=== PATIENT | male | born 1955 | race Hispanic/Latino ===

== ENCOUNTER 2016-06-30 13:24 | Emergency (ER) | payer SELFPAY ==
--- NOTE | 2016-06-30 14:47 | XRay Report ---
PA and lateral chest: Lungs are hyperlucent and hyperinflated. There are no pulmonary nodules nor infiltrates. The heart size may be small. These findings however are unchanged from November 2014. Impression: 1. Chronic lung disease consistent with COPD. 2. Small cardiac contour. Consider adrenal insufficiency.
[2016-06-30 15:11] LABS: Basophils % (Auto) 0.5 % (0.0-1.8); Eosinophils % (Auto) 0.5 % (0.0-4.3); Hematocrit 46.1 % (35.5-45.6); Hemoglobin 15.3 gm/dl (11.8-15.2); Mean Corpuscular HGB Conc 33 % (32-34); Mean Corpuscular Hemoglobin 31 pg (28-32); Mean Corpuscular Volume 92 fl (84-94); Platelet Count 244 K/mm3 (140-440); Red Blood Count 5.03 M/mm3 (3.65-5.03); Red Cell Distribution Width 14.6 % (13.2-15.2); White Blood Count 16.8 K/mm3 (4.5-11.0)
[2016-06-30 15:50] LABS: Anion Gap 21 mmol/L; BUN/Creatinine Ratio 20.83; Blood Urea Nitrogen 25 mg/dL (9-20); Carbon Dioxide 25 mmol/L (22-30); Chloride 98.2 mmol/L (98-107); Glucose 83 mg/dL (75-100); Potassium 4.1 mmol/L (3.6-5.0); Sodium 140 mmol/L (137-145)
[2016-06-30] MEDS ORDERED: TESSALON PERLES PO ONE (23:35)
[2016-06-30] MEDS ORDERED: ZOFRAN IV ONE (23:35)
[2016-06-30] MEDS ORDERED: SUBLIMAZE IV ONE (23:35)
[2016-06-30] MEDS ORDERED: ATROVENT IH ONE (23:35)
[2016-06-30] MEDS ORDERED: PROVENTIL IH ONE (23:35)
--- NOTE | 2016-06-30 23:43 | Emergency Department Report ---
HPI - HPI HPI: Room 5 The patient is a 61-year-old male presenting with a chief complaint of shortness of breath and cough. Patient states he's had a chronic cough years but over the past 2-3 days and has worsened. Patient admits to cough that is occasionally productive of yellow sputum. Patient does admit to a subjective fever and rhinorrhea Location: Lungs Duration: [see above] Quality: Cough, soreness Severity: Moderate Modifying factors: [see above] Context: [see above] Mode of transportation: EMS <NAEL CORONEL - Last Filed: 07/01/16 01:46> <ANTHONY MONTANEZ - Last Filed: 07/04/16 02:14> - General Chief Complaint: Dyspnea/Respdistress Time Seen by Provider: 06/30/16 23:27 ED Past Medical Hx - Past Medical History Hx Psychiatric Treatment: Yes (DEPRESSION) - Surgical History Additional Surgical History: bladder - as a child - Family History Family history: no significant - Social History Smoking Status: Current Every Day Smoker (approximately one pack per day. Patient has smoked for approximately 45 years) <NAEL CORONEL - Last Filed: 07/01/16 01:46> <ANTHONY MONTANEZ - Last Filed: 07/04/16 02:14> - Medications Home Medications: Home Medications Medication Instructions Recorded Confirmed Last Taken Type ALBUTEROL Inhaler [Proair] 2 puff IH QID PRN #1 inhalation 07/01/16 Unknown Rx Azithromycin [Zithromax Z-CARLOS] 0 mg PO DAILY #6 tab 07/01/16 Unknown Rx Benzonatate [Tessalon Perles] 100 mg PO Q8HR #30 capsule 07/01/16 Unknown Rx HYDROcodone/APAP 5-325 [[place] 1 each PO Q6HR PRN #10 tablet 07/01/16 Unknown Rx 5/325] Ibuprofen [Motrin 800 MG tab] 800 mg PO Q8HR PRN #20 tablet 07/01/16 Unknown Rx Prednisone [predniSONE 10 mg 10 mg PO .TAPER #1 tab.ds.pk 07/01/16 Unknown Rx (6-Day Pack, 21 Tabs)] ED Review of Systems ROS: Stated complaint: SOB Other details as noted in HPI Comment: All other systems reviewed and negative Constitutional: fever (subjective) Eyes: denies: eye pain, eye discharge, vision change ENT: denies: ear pain, throat pain Respiratory: cough, shortness of breath Cardiovascular: denies: chest pain, palpitations Endocrine: no symptoms reported Gastrointestinal: denies: abdominal pain, nausea, diarrhea Genitourinary: denies: urgency, dysuria Musculoskeletal: myalgia Skin: denies: rash, lesions Neurological: headache Psychiatric: denies: anxiety, depression Hematological/Lymphatic: denies: easy bleeding, easy bruising <NAEL CORONEL - Last Filed: 07/01/16 01:46> ROS: Stated complaint: SOB Other details as noted in HPI <TARIKANTHONY C - Last Filed: 07/04/16 02:14> Physical Exam - Physical Exam Vital Signs: Vital Signs 06/30/16 14:18 Temperature 98.0 F Pulse Rate 90 Respiratory 28 H Rate Blood Pressure 113/84 O2 Sat by Pulse 97 Oximetry Physical Exam: GENERAL: The patient is well-developed well-nourished male lying on stretcher not appearing to be in acute distress. [] HEENT: Normocephalic. Atraumatic. Extraocular motions are intact. Patient has moist mucous membranes. NECK: Supple. Trachea midline CHEST/LUNGS: Clear to auscultation. There is no respiratory distress noted. Frequent coughing HEART/CARDIOVASCULAR: Regular. There is no tachycardia. There is no gallop rub or murmur. ABDOMEN: Abdomen is soft, nontender. Patient has normal bowel sounds. There is no abdominal distention. SKIN: There is no rash. There is no edema. There is no diaphoresis. NEURO: The patient is awake, alert, and oriented. The patient is cooperative. The patient has normal speech MUSCULOSKELETAL: There is no evidence of acute injury. <NAEL CORONEL K - Last Filed: 07/01/16 01:46> - Physical Exam Vital Signs: Vital Signs 06/30/16 06/30/16 06/30/16 14:18 22:52 23:00 Temperature 98.0 F Pulse Rate 90 Pulse Rate [ Anterior Bilateral Throughout] Respiratory 28 H Rate Respiratory Rate [Anterior Bilateral Throughout] Blood Pressure 113/84 128/102 Blood Pressure [Right] O2 Sat by Pulse 97 97 98 Oximetry 06/30/16 06/30/16 06/30/16 23:16 23:30 23:45 Temperature Pulse Rate Pulse Rate [ 90 Anterior Bilateral Throughout] Respiratory Rate Respiratory 18 Rate [Anterior Bilateral Throughout] Blood Pressure 128/102 130/91 125/87 Blood Pressure [Right] O2 Sat by Pulse 97 96 96 Oximetry 07/01/16 07/01/16 07/01/16 00:00 00:15 00:30 Temperature Pulse Rate Pulse Rate [ 87 Anterior Bilateral Throughout] Respiratory Rate Respiratory 16 Rate [Anterior Bilateral Throughout] Blood Pressure 119/79 125/80 100/66 Blood Pressure [Right] O2 Sat by Pulse 86 91 92 Oximetry 07/01/16 07/01/16 00:45 02:11 Temperature Pulse Rate 91 H Pulse Rate [ Anterior Bilateral Throughout] Respiratory 18 Rate Respiratory Rate [Anterior Bilateral Throughout] Blood Pressure 103/67 Blood Pressure 97/64 [Right] O2 Sat by Pulse 89 96 Oximetry <ANTHONY MONTANEZ C - Last Filed: 07/04/16 02:14> ED Course Vital Signs 06/30/16 14:18 Temperature 98.0 F Pulse Rate 90 Respiratory 28 H Rate Blood Pressure 113/84 O2 Sat by Pulse 97 Oximetry <NAEL CORONEL K - Last Filed: 07/01/16 01:46> Vital Signs 06/30/16 06/30/16 06/30/16 14:18 22:52 23:00 Temperature 98.0 F Pulse Rate 90 Pulse Rate [ Anterior Bilateral Throughout] Respiratory 28 H Rate Respiratory Rate [Anterior Bilateral Throughout] Blood Pressure 113/84 128/102 Blood Pressure [Right] O2 Sat by Pulse 97 97 98 Oximetry 06/30/16 06/30/16 06/30/16 23:16 23:30 23:45 Temperature Pulse Rate Pulse Rate [ 90 Anterior Bilateral Throughout] Respiratory Rate Respiratory 18 Rate [Anterior Bilateral Throughout] Blood Pressure 128/102 130/91 125/87 Blood Pressure [Right] O2 Sat by Pulse 97 96 96 Oximetry 07/01/16 07/01/16 07/01/16 00:00 00:15 00:30 Temperature Pulse Rate Pulse Rate [ 87 Anterior Bilateral Throughout] Respiratory Rate Respiratory 16 Rate [Anterior Bilateral Throughout] Blood Pressure 119/79 125/80 100/66 Blood Pressure [Right] O2 Sat by Pulse 86 91 92 Oximetry 07/01/16 07/01/16 00:45 02:11 Temperature Pulse Rate 91 H Pulse Rate [ Anterior Bilateral Throughout] Respiratory 18 Rate Respiratory Rate [Anterior Bilateral Throughout] Blood Pressure 103/67 Blood Pressure 97/64 [Right] O2 Sat by Pulse 89 96 Oximetry <ANTHONY MONTANEZ - Last Filed: 07/04/16 02:14> ED Medical Decision Making - Lab Data Result diagrams: 06/30/16 14:46 06/30/16 14:46 Laboratory Tests 06/30/16 06/30/16 14:46 14:46 WBC 16.8 H RBC 5.03 Hgb 15.3 H Hct 46.1 H MCV 92 MCH 31 MCHC 33 RDW 14.6 Plt Count 244 Lymph % (Auto) 5.9 L [place] % (Auto) 8.2 H Eos % (Auto) 0.5 Baso % (Auto) 0.5 Lymph # 1.0 L [place] # 1.4 H Eos # 0.1 Baso # 0.1 Seg Neutrophils % 84.9 H Seg Neutrophils # 14.3 H Sodium 140 Potassium 4.1 Chloride 98.2 Carbon Dioxide 25 Anion Gap 21 BUN 25 H Creatinine 1.2 Estimated GFR > 60 BUN/Creatinine Ratio 20.83 Glucose 83 Calcium 9.0 Troponin T < 0.010 - EKG Data -: EKG Interpreted by Me EKG shows normal: sinus rhythm Rate: normal - EKG Data When compared to previous EKG there are: previous EKG unavailable Interpretation: nonspecific ST-T wave margie - Radiology Data Radiology results: image reviewed (chest x-ray) interpreted by me: Chest x-ray-no definite focal infiltrates. Consistent with COPD - Differential Diagnosis COPD, pneumonia, PE <NAEL CORONEL - Last Filed: 07/01/16 01:46> - Lab Data Result diagrams: 06/30/16 14:46 06/30/16 14:46 - Radiology Data Radiology results: report reviewed (Ct angio chest: No PE or dissection. Borderline enlarged mediastinal and hilar lymph nodes. Advanced COPD see report ) <ANTHONY MONTANEZ - Last Filed: 07/04/16 02:14> Critical care attestation.: If time is entered above; I have spent that time in minutes in the direct care of this critically ill patient, excluding procedure time. <NAEL CORONEL - Last Filed: 07/01/16 01:46> Critical care attestation.: If time is entered above; I have spent that time in minutes in the direct care of this critically ill patient, excluding procedure time. <ANTHONY MONTANEZ - Last Filed: 07/04/16 02:14> ED Disposition <BERNANAEL - Last Filed: 07/01/16 01:46> Is pt being admited?: No <ANTHONY MONTANEZ - Last Filed: 07/04/16 02:14> Clinical Impression: Shortness of breath, Cough, COPD (chronic obstructive pulmonary disease) Disposition: DISCHARGED TO HOME OR SELFCARE Condition: Stable Instructions: Chronic Obstructive Pulmonary Disease (ED) Additional Instructions: Return to the emergency department immediately should you develop worsening symptoms, fever, inability to tolerate food or liquid or any other concerns. Prescriptions: ALBUTEROL Inhaler [Proair] 2 puff IH QID PRN #1 inhalation PRN Reason: Shortness Of Breath Azithromycin [Zithromax Z-CARLOS] 0 mg PO DAILY #6 tab Benzonatate [Tessalon Perles] 100 mg PO Q8HR #30 capsule HYDROcodone/APAP 5-325 [[place] 5/325] 1 each PO Q6HR PRN #10 tablet PRN Reason: Pain Ibuprofen [Motrin 800 MG tab] 800 mg PO Q8HR PRN #20 tablet PRN Reason: Pain Prednisone [predniSONE 10 mg (6-Day Pack, 21 Tabs)] 10 mg PO .TAPER #1 tab.ds.pk Referrals: MORALES PIMENTEL MD [Staff Physician] - 3-5 Days (Dr. Pimentel is a health information tech. Please follow up with him for further evaluation) JUAN LANDRY MD [Staff Physician] - 3-5 Days (Dr Landry is a primary physician. Please follow up with him for further evaluation)
[2016-07-01] MEDS ORDERED: NACL ONE (00:26)
--- NOTE | 2016-07-01 02:11 | Cat Scan Report ---
FINAL REPORT PROCEDURE: CT ANGIO CHEST TECHNIQUE: Computerized axial tomographic angiography of the chest and pulmonary arteries was performed after the IV injection of iodinated nonionic contrast. The image data was postprocessed using maximum intensity projection (MIP) and 2-dimensional multiplanar reformatted (MPR) techniques. The examination is specifically tailored to the evaluation of the pulmonary arteries per clinical request. HISTORY: Short of breath 786.09, chest pain 786.50, shortness of breath, cough COMPARISON: No prior studies are available for comparison. FINDINGS: Heart and pericardium: Normal. Thoracic aorta: There is no thoracic aortic aneurysm or dissection.. Pulmonary vasculature: There is no pulmonary embolism.. Lymph nodes: There are borderline enlarged mediastinal and hilar lymph nodes.. Lungs: There is advanced COPD with large cystic changes at the lung apices. There is scattered fibrotic changes at the lung bases. There are no active infiltrates. There is no pulmonary nodule or mass. There are focal areas of bronchiectasis and bronchial wall thickening. The trachea and bronchi are patent.. Pleural space: No effusion, thickening, or pneumothorax. Musculoskeletal structures: No significant abnormality. Upper abdominal structures: No significant abnormality. IMPRESSION: There is no thoracic aortic aneurysm or dissection.. There is no pulmonary embolism.. There are borderline enlarged mediastinal and hilar lymph nodes.. There is advanced COPD with large cystic changes at the lung apices. There is scattered fibrotic changes at the lung bases. There are no active infiltrates. There is no pulmonary nodule or mass. There are focal areas of bronchiectasis and bronchial wall thickening. The trachea and bronchi are patent.. There are no effusions or pneumothoraces. .
[2016-07-01 02:12] VITALS: BP 97/64
== END 2016-07-01 04:00 | disposition home or self-care (01) ==
LOC: ED 13:24
DX: J44.9 Chronic obstructive pulmonary disease, unspecified (principal); F32.9 Major depressive disorder, single episode, unspecified; F17.210 Nicotine dependence, cigarettes, uncomplicated; Z88.0 Allergy status to penicillin
CPT/HCPCS: 36415; 71020; 71275; 80048; 84484; 85025; 87400; 93005; 93010; 94640; 96374; 96375; 99285; J2405; J3010; Q9967

== ENCOUNTER 2017-06-27 12:56 | Emergency (ER) | payer SELFPAY ==
[2017-06-27] MEDS ORDERED: TYLENOL PO ONE (15:46)
--- NOTE | 2017-06-27 16:32 | Emergency Department Report ---
ED Neck Pain/Injury HPI - General Chief Complaint: Extremity Injury, Upper Stated Complaint: NECK PAIN Time Seen by Provider: 06/27/17 15:45 Mode of arrival: Ambulatory Limitations: No Limitations - History of Present Illness Initial Comments: 61-year-old male past medical history crack cocaine use, chronic shoulder pain and chronic neck pain presents with acute on chronic neck pain. 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 Patient states is been going on for years. Denies any fever chills nausea vomiting photophobia. Patient is awake alert and oriented 3 states that pain is currently dull and achy. Pain currently 6 out of 10. Denies any associated chest pain diaphoresis nausea fever or chills or shortness of breath or palpitations. States he has a past history of smoking crack cocaine. MD Complaint: neck pain, neck injury Onset/Timin -: week(s) Radiation: right lateral Severity: moderate Severity scale (0 -10): 5 Quality: dull, aching Consistency: intermittent Improves With: none Worsens With: none Treatments Prior to Arrival: none - Related Data Previous Rx's Medication Instructions Recorded Last Taken Type ALBUTEROL Inhaler [Proair] 2 puff IH QID PRN #1 inhalation 07/01/16 Unknown Rx Azithromycin [Zithromax Z-CARLOS] 0 mg PO DAILY #6 tab 07/01/16 Unknown Rx Benzonatate [Tessalon Perles] 100 mg PO Q8HR #30 capsule 07/01/16 Unknown Rx HYDROcodone/APAP 5-325 [[place] 1 each PO Q6HR PRN #10 tablet 07/01/16 Unknown Rx 5/325] Ibuprofen [Motrin 800 MG tab] 800 mg PO Q8HR PRN #20 tablet 07/01/16 Unknown Rx Prednisone [predniSONE 10 mg 10 mg PO .TAPER #1 tab.ds.pk 07/01/16 Unknown Rx (6-Day Pack, 21 Tabs)] Acetaminophen/Codeine [Tylenol 1 tab PO Q6H PRN #8 tab 06/27/17 Unknown Rx /Codeine # 3 tab] Ibuprofen [Motrin] 400 mg PO Q8H PRN #20 tablet 06/27/17 Unknown Rx Allergies Allergy/AdvReac Type Severity Reaction Status Date / Time penicillin Allergy Unknown Verified 06/30/16 14:31 ED Review of Systems ROS: Stated complaint: NECK PAIN Other details as noted in HPI Constitutional: denies: chills, fever Eyes: denies: eye pain, eye discharge, vision change ENT: denies: ear pain, throat pain Respiratory: denies: cough, shortness of breath, wheezing Cardiovascular: denies: chest pain, palpitations Endocrine: no symptoms reported Gastrointestinal: denies: abdominal pain, nausea, diarrhea Genitourinary: denies: urgency, dysuria Musculoskeletal: as per HPI. denies: back pain, joint swelling, arthralgia Skin: denies: rash, lesions Neurological: denies: headache, weakness, paresthesias Psychiatric: denies: anxiety, depression Hematological/Lymphatic: denies: easy bleeding, easy bruising ED Past Medical Hx - Past Medical History Previous Medical History?: Yes Hx Psychiatric Treatment: Yes (DEPRESSION) Hx COPD: Yes - Surgical History Past Surgical History?: Yes Additional Surgical History: bladder - as a child - Social History Smoking Status: Current Every Day Smoker Substance Use Type: Cocaine - Medications Home Medications: Home Medications Medication Instructions Recorded Confirmed Last Taken Type ALBUTEROL Inhaler [Proair] 2 puff IH QID PRN #1 inhalation 07/01/16 Unknown Rx Azithromycin [Zithromax Z-CARLOS] 0 mg PO DAILY #6 tab 07/01/16 Unknown Rx Benzonatate [Tessalon Perles] 100 mg PO Q8HR #30 capsule 07/01/16 Unknown Rx HYDROcodone/APAP 5-325 [[place] 1 each PO Q6HR PRN #10 tablet 07/01/16 Unknown Rx 5/325] Ibuprofen [Motrin 800 MG tab] 800 mg PO Q8HR PRN #20 tablet 07/01/16 Unknown Rx Prednisone [predniSONE 10 mg 10 mg PO .TAPER #1 tab.ds.pk 07/01/16 Unknown Rx (6-Day Pack, 21 Tabs)] Acetaminophen/Codeine [Tylenol 1 tab PO Q6H PRN #8 tab 06/27/17 Unknown Rx /Codeine # 3 tab] Ibuprofen [Motrin] 400 mg PO Q8H PRN #20 tablet 06/27/17 Unknown Rx ED Physical Exam - General Limitations: No Limitations General appearance: alert, in no apparent distress - Head Head exam: Present: atraumatic, normocephalic - Eye Eye exam: Present: normal appearance, PERRL, EOMI - ENT ENT exam: Present: mucous membranes moist - Neck Neck exam: Present: normal inspection, full ROM (neck flexion and extension intact no midline or posterior cervical spine exam on palpation) - Respiratory Respiratory exam: Present: normal lung sounds bilaterally. Absent: respiratory distress - Cardiovascular Cardiovascular Exam: Present: regular rate, normal rhythm. Absent: systolic murmur, diastolic murmur, rubs, gallop - GI/Abdominal GI/Abdominal exam: Present: soft, normal bowel sounds - Rectal Rectal exam: Present: deferred - Extremities Exam Extremities exam: Present: normal inspection - Expanded Upper Extremity Exam Right Shoulder Exam: Present: normal inspection, full ROM (range of motion right shoulder clinically intact on exam) Upper Arm exam: Present: normal inspection, full ROM - Back Exam Back exam: Present: normal inspection - Neurological Exam Neurological exam: Present: alert, oriented X3 - Psychiatric Psychiatric exam: Present: normal affect, normal mood - Skin Skin exam: Present: warm, dry, intact, normal color. Absent: rash ED Course Vital Signs 06/27/17 06/27/17 13:03 17:02 Temperature 98.1 F Pulse Rate 78 Respiratory 18 16 Rate Blood Pressure 115/78 O2 Sat by Pulse 96 Oximetry ED Medical Decision Making - Medical Decision Making A/P: Cervical radiculopathy 1- range of motion neck and shoulders preserved. X-ray consistent with degenerative disease of the neck C-spine. 2- short course of Motrin when necessary , short course codeine when necessary 3- patient referred to orthopedics and primary care. 4- has no associated diaphoresis chest pain palpitations substernal chest pain nausea or vomiting Critical care attestation.: If time is entered above; I have spent that time in minutes in the direct care of this critically ill patient, excluding procedure time. ED Disposition Clinical Impression: Chronic neck pain Disposition: - TO HOME OR SELFCARE Is pt being admited?: No Does the pt Need Aspirin: No Condition: Stable Instructions: Cervical Radiculopathy (ED) Prescriptions: Acetaminophen/Codeine [Tylenol /Codeine # 3 tab] 1 tab PO Q6H PRN #8 tab PRN Reason: Pain Ibuprofen [Motrin] 400 mg PO Q8H PRN #20 tablet PRN Reason: Pain Referrals: [facility] [Provider Group] - 3-5 Days [facility] [Outside] - 3-5 Days Time of Disposition: 17:30
[2017-06-27 17:47] VITALS: BP 124/74
--- NOTE | 2017-06-27 18:38 | XRay Report ---
FINAL REPORT PROCEDURE: XR SPINE CERVICAL 2-3V TECHNIQUE: Cervical spine, three views HISTORY: acute on chronic neck pain COMPARISON: No prior studies are available for comparison. FINDINGS: Vertebral body heights and alignment are maintained. There are degenerative disc changes of the mid cervical spine, with disc space narrowing and osteophyte formation. Odontoid process is intact. IMPRESSION: Degenerative disc changes. No acute osseous abnormality is identified
== END 2017-06-27 17:48 | disposition home or self-care (01) ==
LOC: ED 12:56
DX: M54.2 Cervicalgia (principal); G89.29 Other chronic pain; F32.9 Major depressive disorder, single episode, unspecified; J44.9 Chronic obstructive pulmonary disease, unspecified; F17.200 Nicotine dependence, unspecified, uncomplicated; F14.10 Cocaine abuse, uncomplicated; Z88.0 Allergy status to penicillin
CPT/HCPCS: 72040; 99283

== ENCOUNTER 2017-07-01 18:12 | Inpatient (IN) | payer SELFPAY ==
[2017-07-01] MEDS ORDERED: DUONEB *Not for PRN Use IH ONE ×3 (18:29→22:38)
[2017-07-01 18:45] LABS: Basophils # (Auto) 0.1 K/mm3 (0.0-0.1); Basophils % (Auto) 0.9 % (0.0-1.8); Eosinophils % (Auto) 0.2 % (0.0-4.3); Hematocrit 48.6 % (35.5-45.6); Hemoglobin 16.3 gm/dl (11.8-15.2); Lymphocytes # (Auto) 1.5 K/mm3 (1.2-5.4); Lymphocytes % (Auto) 14.5 % (13.4-35.0); Mean Corpuscular HGB Conc 34 % (32-34); Mean Corpuscular Hemoglobin 30 pg (28-32); Mean Corpuscular Volume 91 fl (84-94); Monocytes % (Auto) 9.4 % (0.0-7.3); Platelet Count 162 K/mm3 (140-440); Red Blood Count 5.34 M/mm3 (3.65-5.03); Red Cell Distribution Width 15.1 % (13.2-15.2)
[2017-07-01 19:17] LABS: Calcium 8.6 mg/dL (8.4-10.2)
--- NOTE | 2017-07-01 19:45 | XRay Report ---
FINAL REPORT PROCEDURE: XR CHEST 1V AP TECHNIQUE: A portable AP chest radiograph was obtained at 07/01/2017 22:39 (T) . CPT 38549 HISTORY: Shortness of breath. COMPARISON: No prior studies are available for comparison. FINDINGS: Heart: Normal. Mediastinum/Vessels: Aortic tortuosity. Lungs/Pleural space: Moderate hyperinflation. Biapical bullous changes. Subtle peribronchial thickening. Curvilinear line overlies the left upper thorax. Bony thorax: Mild degenerative changes of the spine. Life support devices: None. IMPRESSION: Aortic tortuosity. Moderate hyperinflation and biapical bullous change. Subtle peribronchial thickening, consider bronchitis. Curvilinear line overlies the left upper thorax, likely skin fold as there appear to be lung markings peripheral to this. With emphysema and bullous change, consider PA and lateral chest radiograph even chest CT if there is concern for subtle pneumothorax.
--- NOTE | 2017-07-01 20:28 | Emergency Department Report ---
ED Shortness of Breath HPI - General Chief Complaint: Dyspnea/Respdistress Stated Complaint: SOB Time Seen by Provider: 07/01/17 20:23 Source: patient Mode of arrival: Ambulatory Limitations: No Limitations - History of Present Illness Initial Comments: Patient is a 62-year-old male presents to emergency room with complaints of shortness of breath and cough 4-5 days. Patient states that he has COPD and is having another COPD exacerbation. Patient states his cough is productive with yellow sputum. Patient complains of fever and chills. Patient denies chest pain. Patient states that he is breathing faster than normal and is having difficulties in breathing and feels like he cannot take a deep breath. Patient states he supposed to be taking inhalers but does not have any. Patient also states he doesn't have a clinical technician or primary care. 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 Patient also complains of frequency in urination has been going on for several months. Patient denies dysuria or pain with urination. She denies hematuria or change in color of urine. MD Complaint: shortness of breath -: Gradual Severity: severe Pain Scale: 10 Consistency: constant Improves With: oxygen, rest, bronchodilators, upright position Worsens With: lying flat, exertion, movement, coughing Known History Of: COPD Context: recent URI, medication noncompliance, smoke/fume exposure, recent illness Associated Symptoms: denies other symptoms, fever, cough, sputum production, polyuria Treatments Prior to Arrival: none - Related Data Home Oxygen Therapy: No Previous Rx's Medication Instructions Recorded Last Taken Type ALBUTEROL Inhaler [Proair] 2 puff IH QID PRN #1 inhalation 07/01/16 Unknown Rx Azithromycin [Zithromax Z-CARLOS] 0 mg PO DAILY #6 tab 07/01/16 Unknown Rx Benzonatate [Tessalon Perles] 100 mg PO Q8HR #30 capsule 07/01/16 Unknown Rx HYDROcodone/APAP 5-325 [[place] 1 each PO Q6HR PRN #10 tablet 07/01/16 Unknown Rx 5/325] Ibuprofen [Motrin 800 MG tab] 800 mg PO Q8HR PRN #20 tablet 07/01/16 Unknown Rx Prednisone [predniSONE 10 mg 10 mg PO .TAPER #1 tab.ds.pk 07/01/16 Unknown Rx (6-Day Pack, 21 Tabs)] Acetaminophen/Codeine [Tylenol 1 tab PO Q6H PRN #8 tab 06/27/17 Unknown Rx /Codeine # 3 tab] Albuterol Sulfate [Ventolin Hfa] 1 puff IH Q4H PRN #1 hfa.aer.ad 06/27/17 Unknown Rx Ibuprofen [Motrin] 400 mg PO Q8H PRN #20 tablet 06/27/17 Unknown Rx Allergies Allergy/AdvReac Type Severity Reaction Status Date / Time penicillin Allergy Unknown Verified 06/30/16 14:31 ED Review of Systems ROS: Stated complaint: SOB Other details as noted in HPI Comment: All other systems reviewed and negative Constitutional: chills, fever Eyes: denies: eye pain, eye discharge, vision change ENT: denies: ear pain, throat pain Respiratory: see HPI, cough, shortness of breath, SOB with exertion, SOB at rest , wheezing Cardiovascular: as per HPI. denies: chest pain, palpitations Endocrine: no symptoms reported Gastrointestinal: denies: abdominal pain, nausea, diarrhea Genitourinary: urgency, frequency. denies: dysuria Musculoskeletal: denies: back pain, joint swelling, arthralgia Skin: denies: rash, lesions Neurological: denies: headache, weakness, paresthesias Psychiatric: denies: anxiety, depression Hematological/Lymphatic: denies: easy bleeding, easy bruising ED Past Medical Hx - Past Medical History Previous Medical History?: Yes Hx Psychiatric Treatment: Yes (DEPRESSION) Hx COPD: Yes - Surgical History Past Surgical History?: Yes Additional Surgical History: bladder - as a child - Family History Family history: hypertension - Social History Smoking Status: Current Every Day Smoker Substance Use Type: None - Medications Home Medications: Home Medications Medication Instructions Recorded Confirmed Last Taken Type ALBUTEROL Inhaler [Proair] 2 puff IH QID PRN #1 inhalation 07/01/16 Unknown Rx Azithromycin [Zithromax Z-CARLOS] 0 mg PO DAILY #6 tab 07/01/16 Unknown Rx Benzonatate [Tessalon Perles] 100 mg PO Q8HR #30 capsule 07/01/16 Unknown Rx HYDROcodone/APAP 5-325 [[place] 1 each PO Q6HR PRN #10 tablet 07/01/16 Unknown Rx 5/325] Ibuprofen [Motrin 800 MG tab] 800 mg PO Q8HR PRN #20 tablet 07/01/16 Unknown Rx Prednisone [predniSONE 10 mg 10 mg PO .TAPER #1 tab.ds.pk 07/01/16 Unknown Rx (6-Day Pack, 21 Tabs)] Acetaminophen/Codeine [Tylenol 1 tab PO Q6H PRN #8 tab 06/27/17 Unknown Rx /Codeine # 3 tab] Albuterol Sulfate [Ventolin Hfa] 1 puff IH Q4H PRN #1 hfa.aer.ad 06/27/17 Unknown Rx Ibuprofen [Motrin] 400 mg PO Q8H PRN #20 tablet 06/27/17 Unknown Rx ED Physical Exam - General Limitations: No Limitations General appearance: alert, in no apparent distress - Head Head exam: Present: atraumatic, normocephalic - Eye Eye exam: Present: normal appearance - ENT ENT exam: Present: mucous membranes dry - Neck Neck exam: Present: normal inspection - Respiratory Respiratory exam: Present: normal lung sounds bilaterally, respiratory distress , wheezes, rhonchi, accessory muscle use, prolonged expiratory - Cardiovascular Cardiovascular Exam: Present: regular rate, normal rhythm. Absent: systolic murmur, diastolic murmur, rubs, gallop - GI/Abdominal GI/Abdominal exam: Present: soft, normal bowel sounds - Rectal Rectal exam: Present: deferred - Extremities Exam Extremities exam: Present: normal inspection - Back Exam Back exam: Present: normal inspection - Neurological Exam Neurological exam: Present: alert, oriented X3 - Psychiatric Psychiatric exam: Present: normal affect, normal mood - Skin Skin exam: Present: warm, dry, intact, normal color. Absent: rash ED Course Vital Signs 07/01/17 07/01/17 07/01/17 18:16 18:28 18:30 Temperature 97.9 F Pulse Rate 87 Pulse Rate [ Anterior Bilateral Throughout] Respiratory 24 Rate Respiratory Rate [Anterior Bilateral Throughout] Blood Pressure 129/87 O2 Sat by Pulse 97 98 98 Oximetry 07/01/17 07/01/17 07/01/17 18:35 18:46 19:00 Temperature Pulse Rate 85 86 Pulse Rate [ 85 Anterior Bilateral Throughout] Respiratory 38 H 30 H Rate Respiratory 24 Rate [Anterior Bilateral Throughout] Blood Pressure 130/90 122/82 O2 Sat by Pulse 96 96 Oximetry 07/01/17 07/01/17 07/01/17 19:16 19:25 19:30 Temperature Pulse Rate Pulse Rate [ Anterior Bilateral Throughout] Respiratory 17 20 30 H Rate Respiratory Rate [Anterior Bilateral Throughout] Blood Pressure 122/82 123/64 O2 Sat by Pulse 96 95 94 Oximetry 07/01/17 07/01/17 07/01/17 19:36 19:46 20:00 Temperature Pulse Rate 101 H 92 H Pulse Rate [ 90 Anterior Bilateral Throughout] Respiratory 26 H 29 H Rate Respiratory 24 Rate [Anterior Bilateral Throughout] Blood Pressure 123/64 107/69 O2 Sat by Pulse 92 91 Oximetry 07/01/17 07/01/17 07/01/17 20:16 20:30 20:46 Temperature Pulse Rate 88 94 H Pulse Rate [ Anterior Bilateral Throughout] Respiratory 35 H 31 H 35 H Rate Respiratory Rate [Anterior Bilateral Throughout] Blood Pressure 107/69 103/73 103/73 O2 Sat by Pulse 96 95 96 Oximetry 07/01/17 07/01/17 07/01/17 21:00 21:16 21:30 Temperature Pulse Rate 89 85 85 Pulse Rate [ Anterior Bilateral Throughout] Respiratory 31 H 25 H 21 Rate Respiratory Rate [Anterior Bilateral Throughout] Blood Pressure 109/70 109/70 113/77 O2 Sat by Pulse 95 97 94 Oximetry 07/01/17 07/01/17 07/01/17 21:46 22:00 22:16 Temperature Pulse Rate 84 84 84 Pulse Rate [ Anterior Bilateral Throughout] Respiratory 20 32 H 26 H Rate Respiratory Rate [Anterior Bilateral Throughout] Blood Pressure 113/77 105/73 113/77 O2 Sat by Pulse 97 96 93 Oximetry 07/01/17 07/01/17 07/01/17 22:30 22:46 22:57 Temperature Pulse Rate 86 85 Pulse Rate [ 88 Anterior Bilateral Throughout] Respiratory 29 H 24 Rate Respiratory 18 Rate [Anterior Bilateral Throughout] Blood Pressure 113/83 113/83 O2 Sat by Pulse 96 96 Oximetry 07/01/17 07/01/17 07/01/17 23:00 23:07 23:16 Temperature Pulse Rate 82 88 Pulse Rate [ 89 Anterior Bilateral Throughout] Respiratory 17 25 H Rate Respiratory 18 Rate [Anterior Bilateral Throughout] Blood Pressure 106/74 106/74 O2 Sat by Pulse 94 96 Oximetry 07/01/17 07/01/17 07/01/17 23:19 23:24 23:30 Temperature 98.2 F Pulse Rate 95 H 92 H Pulse Rate [ Anterior Bilateral Throughout] Respiratory 33 H 29 H Rate Respiratory Rate [Anterior Bilateral Throughout] Blood Pressure 113/77 108/69 O2 Sat by Pulse 97 Oximetry 07/01/17 07/01/17 07/01/17 23:37 23:46 23:55 Temperature Pulse Rate 98 H 109 H Pulse Rate [ Anterior Bilateral Throughout] Respiratory 27 H 43 H 20 Rate Respiratory Rate [Anterior Bilateral Throughout] Blood Pressure 108/69 108/69 O2 Sat by Pulse 90 95 Oximetry 07/02/17 07/02/17 07/02/17 00:00 00:30 01:36 Temperature Pulse Rate 91 H 91 H Pulse Rate [ Anterior Bilateral Throughout] Respiratory 24 21 Rate Respiratory Rate [Anterior Bilateral Throughout] Blood Pressure 103/72 101/67 O2 Sat by Pulse 93 93 95 Oximetry 07/02/17 07/02/17 07/02/17 02:00 02:30 03:00 Temperature Pulse Rate 84 71 81 Pulse Rate [ Anterior Bilateral Throughout] Respiratory 21 21 13 Rate Respiratory Rate [Anterior Bilateral Throughout] Blood Pressure 94/59 96/66 90/66 O2 Sat by Pulse 93 95 96 Oximetry 07/02/17 07/02/17 03:30 04:00 Temperature Pulse Rate 102 H 68 Pulse Rate [ Anterior Bilateral Throughout] Respiratory 18 19 Rate Respiratory Rate [Anterior Bilateral Throughout] Blood Pressure 90/66 97/64 O2 Sat by Pulse 94 98 Oximetry - Reevaluation(s) Reevaluation #1: Patient stated he is feeling better. All results discussed with patient. 07/01/17 23:44 ED Medical Decision Making - Lab Data Result diagrams: 07/01/17 18:29 07/01/17 18:29 - EKG Data -: EKG Interpreted by Me EKG shows normal: sinus rhythm, axis, intervals, QRS complexes, ST-T waves Rate: normal - EKG Data Interpretation: normal EKG - Radiology Data Radiology results: report reviewed, image reviewed interpreted by me: peribronchial cuffing noted. Radiology report reviewed. - Medical Decision Making Patient is a [id number] male presents with shortness of breath and cough. Patient appears to be an acute exacerbation of COPD. Will admit patient for further treatment and evaluation. - Differential Diagnosis COPD exacerbation. Pneumonia. Bronchitis. URI. UTI. Critical care attestation.: If time is entered above; I have spent that time in minutes in the direct care of this critically ill patient, excluding procedure time. ED Disposition Clinical Impression: SOB (shortness of breath), Bronchitis, COPD exacerbation, Urinary frequency Disposition: DC-[id number] OP ADMIT IP TO THIS HOSP Is pt being admited?: Yes Does the pt Need Aspirin: No Condition: Serious Time of Disposition: 02:04
[2017-07-01 21:39] LABS: Creatine Kinase MB 1.9 ng/mL (0.0-4.0)
[2017-07-01] MEDS ORDERED: LEVAQUIN 750MG/150ML 750 MG/150 ML BAG IV ONE (22:03)
[2017-07-01] MEDS ORDERED: NACL 0.9% 1000 ML 1,000 ML IV ONE (23:44)
[2017-07-01] MEDS ORDERED: DILAUDID IV ONE (23:50)
[2017-07-01] MEDS ORDERED: DILAUDID ONE (23:52)
[2017-07-02 00:44] LABS: Bilirubin,Urine NEG (Negative); Blood,Urine NEG (Negative); Color,Urine Yellow (Yellow); Hyaline Casts,Urine 76 /LPF; Mucus,Urine FEW /HPF; Urobilinogen,Urine < 2.0 mg/dL (<2.0)
--- NOTE | 2017-07-02 01:52 | Nuclear Medicine Report ---
FINAL REPORT PROCEDURE: NM LUNG SCAN PERF/VENT TECHNIQUE: 5.0 mCi Tc-99m MAA was injected IV for pulmonary perfusion imaging in multiple projections. 15.00 mCi Tc-99m DTPA aerosol was inhaled for pulmonary ventilation imaging in multiple projections. Injection site: RIGHT antecubital fossa. CPT 99571 REGULATORY GUIDELINES: The patient was released based upon guidelines established in [place] State Regulations for Protection Against Radiation, Chapter 1199-05-11-35, Release of Individuals Containing Radioactive Drugs or Implants. HISTORY: SOB COMPARISON: Chest x-ray dated 07/01/2017. CT angiogram dated 07/01/2016. FINDINGS: Perfusion: There is a subsegmental perfusion defect at the right lung apex which could correspond to emphysematous bleb.. Ventilation: No defects . IMPRESSION: Low probability of pulmonary embolism.
[2017-07-02] MEDS ORDERED: PULMICORT IH ONE (03:15)
--- NOTE | 2017-07-02 03:21 | History and Physical Report ---
History of Present Illness Date of examination: 07/02/17 Date of admission: 07/02/2017 Chief complaint: SHORTNESS OF BREATH History of present illness: Mr Teran is a 62 y/o male with h/o COPD who continues to smoke presented with c/o worsening SOB, associated with cough, ongoing for more than a few days. Pt claims that he is trying to quit tobacco abuse and that he is homeless and lives where he works. He was on RA during the encounter and BP was 96/66. Pt denied CP/N/V. Reports weight loss due to sometimes lack of food. ER Course Upon presentation to the ED, He was given Solumedrol, Duonebs, IVF bolus, was stabilized enough and referred for admission to the hospital medicine service. Past History Past Medical History: COPD, other (chronic hypotension) Past Surgical History: No surgical history Social history: single, Lives alone, smoking, other (homeless ) Family history: hypertension Medications and Allergies Allergies Allergy/AdvReac Type Severity Reaction Status Date / Time penicillin Allergy Unknown Verified 06/30/16 14:31 Home Medications Medication Instructions Recorded Confirmed Last Taken Type ALBUTEROL Inhaler [Proair] 2 puff IH QID PRN #1 inhalation 07/01/16 Unknown Rx Azithromycin [Zithromax Z-CARLOS] 0 mg PO DAILY #6 tab 07/01/16 Unknown Rx Benzonatate [Tessalon Perles] 100 mg PO Q8HR #30 capsule 07/01/16 Unknown Rx HYDROcodone/APAP 5-325 [[place] 1 each PO Q6HR PRN #10 tablet 07/01/16 Unknown Rx 5/325] Ibuprofen [Motrin 800 MG tab] 800 mg PO Q8HR PRN #20 tablet 07/01/16 Unknown Rx Prednisone [predniSONE 10 mg 10 mg PO .TAPER #1 tab.ds.pk 07/01/16 Unknown Rx (6-Day Pack, 21 Tabs)] Acetaminophen/Codeine [Tylenol 1 tab PO Q6H PRN #8 tab 06/27/17 Unknown Rx /Codeine # 3 tab] Albuterol Sulfate [Ventolin Hfa] 1 puff IH Q4H PRN #1 hfa.aer.ad 06/27/17 Unknown Rx Ibuprofen [Motrin] 400 mg PO Q8H PRN #20 tablet 06/27/17 Unknown Rx Active Meds: Active Medications Albuterol/Ipratropium (Duoneb *Not For Prn Use*) 1 ampul IH QIDRT [facility] Benzonatate (Tessalon Perles) 100 mg PO Q8HR [facility] Budesonide (Pulmicort) 0.5 mg IH ONCE ONE Stop: 07/02/17 03:16 Sodium Chloride (Nacl 0.9% 1000 Ml) 1,000 mls @ 250 mls/hr IV ONCE ONE Stop: 07/02/17 03:43 Last Admin: 07/02/17 00:30 Dose: 250 mls/hr Sodium Chloride (Nacl 0.9% 1000 Ml) 1,000 mls @ 125 mls/hr IV DIRECT SAL Levofloxacin (Levaquin) 500 mg PO ONCE ONE Stop: 07/03/17 09:17 Methylprednisolone Sodium Succinate (Solu-Medrol) 40 mg IV Q8H [facility] Review of Systems Constitutional: weight loss, fatigue, weakness, chronic pain, no sweats, no night sweats Eyes: bilateral: other (no visual loss or impairment) Ears, nose, mouth and throat: ear discharge, nasal congestion, nasal discharge, no ear pain, no decreased hearing, no nose pain, no mouth pain, no dysphagia, no hoarseness Cardiovascular: shortness of breath, no orthopnea, no palpitations, no dyspnea on exertion, no paroxysmal nocturnal dyspnea Respiratory: cough with sputum, dyspnea on exertion, wheezing, no pleurisy, no pain on inspiration Gastrointestinal: loss of appetite, no abdominal pain, no vomiting, no diarrhea , no early satiety, no dyspepsia/bloating, no early satiety Genitourinary Male: no discharge, no urinary frequency, no genital pain, no genital sores Rectal: no incontinence, no hemorrhoids, no discharge Musculoskeletal: no neck stiffness, no neck pain, no arm numbness/tingling, no morning stiffness, no muscle weakness Integumentary: no pruritis, no redness, no lesions, no darkening of skin, no depigmentation Neurological: no transient paralysis, no weakness, no parathesias, no numbness, no convulsions, no aphasia Psychiatric: no insomnia, no hypersomnia, no paranoia, no depression Endocrine: weight change, no heat intolerance, no flushing, no increase in ring/ shoe/hat size, no proptosis Hematologic/Lymphatic: no easy bruising, no lymphadenopathy, no lymphedema Allergic/Immunologic: seasonal allergies, no urticaria, no allergic rhinitis, no persistent infections, no anaphylaxis Exam - Constitutional Vitals: Temp Pulse Resp BP Pulse Ox 98.2 F 84 21 94/59 93 07/01/17 23:19 07/02/17 02:00 07/02/17 02:00 07/02/17 02:00 07/02/17 02:00 General appearance: Present: no acute distress, disheveled, other (severe malnutrition) - EENT Eyes: Present: PERRL, EOM intact ENT: hearing intact, clear oral mucosa, edentulous, other (dry MM) - Neck Neck: Present: supple, normal ROM - Respiratory Respiratory: bilateral: diminished, rhonchi, wheezing - Cardiovascular Rhythm: regular Heart Sounds: Present: S1 & S2 - Extremities Extremities: no ischemia, pulses intact, pulses symmetrical Peripheral Pulses: within normal limits - Abdominal General gastrointestinal: Present: soft, non-tender, non-distended, normal bowel sounds Male genitourinary: Present: deferred - Rectal Rectal Exam: deferred - Integumentary Integumentary: Present: clear, warm, decreased turgor - Musculoskeletal Musculoskeletal: strength equal bilaterally - Psychiatric Psychiatric: appropriate mood/affect, intact judgment & insight, memory intact - Neurologic Neurologic: CNII-XII intact, moves all extremities - Allied Health Allied health notes reviewed: nursing Results - Labs CBC & Chem 7: 07/01/17 18:29 07/01/17 18:29 Labs: Laboratory Last Values WBC 10.5 K/mm3 (4.5-11.0) 07/01/17 18:29 RBC 5.34 M/mm3 (3.65-5.03) H 07/01/17 18:29 Hgb 16.3 gm/dl (11.8-15.2) H 07/01/17 18:29 Hct 48.6 % (35.5-45.6) H 07/01/17 18:29 MCV 91 fl (84-94) 07/01/17 18:29 MCH 30 pg (28-32) 07/01/17 18:29 MCHC 34 % (32-34) 07/01/17 18:29 RDW 15.1 % (13.2-15.2) 07/01/17 18:29 Plt Count 162 K/mm3 (140-440) 07/01/17 18:29 Lymph % (Auto) 14.5 % (13.4-35.0) 07/01/17 18:29 [place] % (Auto) 9.4 % (0.0-7.3) H 07/01/17 18: Eos % (Auto) 0.2 % (0.0-4.3) 07/01/17 18: Baso % (Auto) 0.9 % (0.0-1.8) 07/01/17 18: Lymph # 1.5 K/mm3 (1.2-5.4) 07/01/17 18: [place] # 1.0 K/mm3 (0.0-0.8) H 07/01/17 18: Eos # 0.0 K/mm3 (0.0-0.4) 07/01/17 18: Baso # 0.1 K/mm3 (0.0-0.1) 07/01/17 18: Seg Neutrophils % 75.0 % (40.0-70.0) H 07/01/17 18: Seg Neutrophils # 7.9 K/mm3 (1.8-7.7) H 07/01/17 18: D-Dimer 331.47 ng/mlDDU (0-234) H 07/01/17 20:28 Sodium 140 mmol/L (137-145) 07/01/17 18: Potassium 3.6 mmol/L (3.6-5.0) 07/01/17 18: Chloride 96.9 mmol/L (98-107) L 07/01/17 18: Carbon Dioxide 28 mmol/L (22-30) 07/01/17 18:29 Anion Gap 19 mmol/L 07/01/17 18:29 BUN 32 mg/dL (9-20) H 07/01/17 18: Creatinine 1.5 mg/dL (0.8-1.5) 07/01/17 18:29 Estimated GFR 47 ml/min 07/01/17 18: BUN/Creatinine Ratio 21 % 07/01/17 18:29 Glucose 101 mg/dL (75-100) H 07/01/17 18:29 Calcium 8.6 mg/dL (8.4-10.2) 07/01/17 18:29 Total Creatine Kinase 95 units/L (55-170) 07/01/17 20:28 CK-MB (CK-2) 1.9 ng/mL (0.0-4.0) 07/01/17 20:28 CK-MB (CK-2) Rel Index 2.0 (0-4) 07/01/17 20:28 Troponin T < 0.010 ng/mL (0.00-0.029) 07/01/17 20:28 NT-Pro-B Natriuret Pep 553.3 pg/mL (0-900) 07/01/17 20:28 Urine Color Yellow (Yellow) 07/01/17 00:20 Urine Turbidity Clear (Clear) 07/01/17 00:20 Urine pH 5.0 (5.0-7.0) 07/01/17 00:20 Ur Specific [place] 1.019 (1.003-1.030) 07/01/17 00:20 Urine Protein 30 mg/dl mg/dL (Negative) 07/01/17 00:20 Urine Glucose (UA) Neg mg/dL (Negative) 07/01/17 00:20 Urine Ketones Neg mg/dL (Negative) 07/01/17 00:20 Urine Blood Neg (Negative) 07/01/17 00:20 Urine Nitrite Neg (Negative) 07/01/17 00:20 Urine Bilirubin Neg (Negative) 07/01/17 00:20 Urine Urobilinogen < 2.0 mg/dL (<2.0) 07/01/17 00:20 Ur Leukocyte Esterase Neg (Negative) 07/01/17 00:20 Urine WBC (Auto) 6.0 /HPF (0.0-6.0) 07/01/17 00:20 Urine RBC (Auto) 3.0 /HPF (0.0-6.0) 07/01/17 00:20 U Epithel Cells (Auto) 1.0 /HPF (0-13.0) 07/01/17 00:20 Hyaline Casts 76 /LPF 07/01/17 00:20 Urine Mucus Few /HPF 07/01/17 00:20 - Imaging and Cardiology Chest x-ray: report reviewed Assessment and Plan Assessment and plan: Assessment' AE of COPD Chronic Hypotention Severe Protein calorie Malnutrition Chronic tobacco abuse Homelessness Abnormal weight loss Adult FTT Full code status Chronic pain syndrome Plan admit to med surg IV Solumedrol IVF hydration Counseled tobacco cessation am labs consider pulm consult if need be SW for d/c planning close monitoring nutrition consult Duonebs Inhaled steroids dvt and GI ulcer prophylaxis Further pt mgt per hospital course d/w pt and the ED physician reviewed the ED records Multiple questions were answered to the best of my ability More than 35 mins spent, of which more than 50% of the time was spent in pt counseling and coordination of care Advance Directives: No VTE prophylaxis?: Chemical Reason for no VTE Prophylaxis: Pt non compliant/refused
[2017-07-02] MEDS: NACL 0.9% 1000 ML 1,000 ML IV SCH ×3 (07:32→23:48)
[2017-07-02] MEDS: TESSALON PERLES PO SCH ×3 (07:33→21:14)
[2017-07-02] MEDS: DUONEB *Not for PRN Use IH SCH ×4 (08:00→20:48)
--- NOTE | 2017-07-02 09:51 | Cat Scan Report ---
CT CHEST WITHOUT CONTRAST: HISTORY: Shortness of breath, evaluate for pneumothorax. COMPARISON: none. TECHNIQUE: Helical CT in 1.25mm intervals without IV contrast. Sagittal and coronal reformatted images. FINDINGS: Thyroid gland: Normal. Tracheobronchial tree: Normal. Esophagus: Normal. Heart: Normal. Pericardium: Normal. Mediastinum: Normal. Lung [place]: Severe centrilobular emphysematous changes are identified in both upper lung zones. Bullous changes are noted at the lung apices. No evidence for pneumonia, pleural effusion or pneumothorax. 5 mm pleural-based nodule in the anterior right lower lobe and 3 mm subpleural nodule in the posterior right lower lobe are noted. No spiculated lung mass concerning for neoplasm. Pleural Spaces: Normal. Musculoskeletal: Mild thoracic spondylosis. IMPRESSION: Severe emphysematous changes. No evidence for pneumothorax.
[2017-07-02] MEDS ORDERED: Fluarix Quad 2017-2018(36 MOS+ IM ONE (12:00)
--- NOTE | 2017-07-02 13:34 | Progress Note ---
Assessment and Plan Assessment and plan: Patient is 62-year-old man with a history of COPD, homelessness, tobacco dependency and depression who presents with shortness of breath. Patient had abnormal chest x-rays so CT of chest without contrast because creatinine 1.5 shows severe emphysematous changes, no pneumothorax. Elevated d-dimer and underwent a V/Q scan which showed low probability of PE. Patient is admitted for COPD exacerbation -Acute copd exaceration: treat with iv steroids, abx, nebs -Tobacco dependancy: advised to stop -Severe malnutrition, bmi 15.7: consulted Sr. Manager -ARF/CKD 3 most likely, vasomotor nephropathy,poa: ivf, repeat in am -GI/DVT prophylaxis reviewed. full code Disposition: anticipate d/c in 2-3 days depending on clinical improvement of copd History Interval history: Patient was seen and examined. Follow-up on current diagnosis of shortness of breath which is still present but improved. Overnight uneventful. Patient denies any chest pain, nausea/vomiting or severe headaches. Imaging, nursing note, chart, labs and old chart reviewed. Discussed with patient. Hospitalist Physical - Physical exam Narrative exam: GEN: cachethic, unkempt NAD, AWAKE, ALERT, ORIENTATED x 3, bmi 15.7 HEENT: NCAT, EOMI, PERRL, OP Clear NECK: supple, no adenopathy, no thyromegaly, no JVD CVS/HEART: RRR, NORMAL S1S2, pulses present bilaterally CHEST/LUNGS: bilateral rhonchi, Symmetrical chest expansion, diminished air entry bilaterally GI/Abdomen: soft, NTND, good bowel sounds, no guarding or rebound /Bladder: no suprapubic tenderness, no CVA or paraspinal tenderness EXT/Skin: no c/c/e, no obvious rash MSK: FROM x 4 Neuro: CN 2-12 grossly intact, no new focal deficits Psych: calm - Constitutional Vitals: Temp Pulse Resp BP Pulse Ox 97.8 F 69 18 102/69 96 07/02/17 08:20 07/02/17 04:10 07/02/17 08:20 07/02/17 08:20 07/02/17 06:40 General appearance: Present: no acute distress, disheveled, other (severe malnutrition) Results - Labs CBC & Chem 7: 07/01/17 18:29 07/01/17 18:29 Labs: Laboratory Last Values WBC 10.5 K/mm3 (4.5-11.0) 07/01/17 18: RBC 5.34 M/mm3 (3.65-5.03) H 07/01/17 18: Hgb 16.3 gm/dl (11.8-15.2) H 07/01/17 18: Hct 48.6 % (35.5-45.6) H 07/01/17 18: MCV 91 fl (84-94) 07/01/17 18: MCH 30 pg (28-32) 07/01/17 18: MCHC 34 % (32-34) 07/01/17 18: RDW 15.1 % (13.2-15.2) 07/01/17 18: Plt Count 162 K/mm3 (140-440) 07/01/17 18: Lymph % (Auto) 14.5 % (13.4-35.0) 07/01/17 18: [place] % (Auto) 9.4 % (0.0-7.3) H 07/01/17 18: Eos % (Auto) 0.2 % (0.0-4.3) 07/01/17 18: Baso % (Auto) 0.9 % (0.0-1.8) 07/01/17 18: Lymph # 1.5 K/mm3 (1.2-5.4) 07/01/17 18: [place] # 1.0 K/mm3 (0.0-0.8) H 07/01/17 18: Eos # 0.0 K/mm3 (0.0-0.4) 07/01/17 18: Baso # 0.1 K/mm3 (0.0-0.1) 07/01/17 18: Seg Neutrophils % 75.0 % (40.0-70.0) H 07/01/17 18: Seg Neutrophils # 7.9 K/mm3 (1.8-7.7) H 07/01/17 18: D-Dimer 331.47 ng/mlDDU (0-234) H 07/01/17 20: Sodium 140 mmol/L (137-145) 07/01/17 18:29 Potassium 3.6 mmol/L (3.6-5.0) 07/01/17 18:29 Chloride 96.9 mmol/L (98-107) L 07/01/17 18: Carbon Dioxide 28 mmol/L (22-30) 07/01/17 18:29 Anion Gap 19 mmol/L 07/01/17 18:29 BUN 32 mg/dL (9-20) H 07/01/17 18:29 Creatinine 1.5 mg/dL (0.8-1.5) 07/01/17 18:29 Estimated GFR 47 ml/min 07/01/17 18:29 BUN/Creatinine Ratio 21 % 07/01/17 18: Glucose 101 mg/dL (75-100) H 07/01/17 18: Calcium 8.6 mg/dL (8.4-10.2) 07/01/17 18:29 Total Creatine Kinase 95 units/L (55-170) 07/01/17 20:28 CK-MB (CK-2) 1.9 ng/mL (0.0-4.0) 07/01/17 20:28 CK-MB (CK-2) Rel Index 2.0 (0-4) 07/01/17 20:28 Troponin T < 0.010 ng/mL (0.00-0.029) 07/01/17 20:28 NT-Pro-B Natriuret Pep 553.3 pg/mL (0-900) 07/01/17 20:28 Urine Color Yellow (Yellow) 07/01/17 00:20 Urine Turbidity Clear (Clear) 07/01/17 00:20 Urine pH 5.0 (5.0-7.0) 07/01/17 00:20 Ur Specific [place] 1.019 (1.003-1.030) 07/01/17 00:20 Urine Protein 30 mg/dl mg/dL (Negative) 07/01/17 00:20 Urine Glucose (UA) Neg mg/dL (Negative) 07/01/17 00:20 Urine Ketones Neg mg/dL (Negative) 07/01/17 00:20 Urine Blood Neg (Negative) 07/01/17 00:20 Urine Nitrite Neg (Negative) 07/01/17 00:20 Urine Bilirubin Neg (Negative) 03/30/18 00:20 Urine Urobilinogen < 2.0 mg/dL (<2.0) 07/01/17 00:20 Ur Leukocyte Esterase Neg (Negative) 07/01/17 00:20 Urine WBC (Auto) 6.0 /HPF (0.0-6.0) 07/01/17 00:20 Urine RBC (Auto) 3.0 /HPF (0.0-6.0) 07/01/17 00:20 U Epithel Cells (Auto) 1.0 /HPF (0-13.0) 07/01/17 00:20 Hyaline Casts 76 /LPF 07/01/17 00:20 Urine Mucus Few /HPF 07/01/17 00:20
[2017-07-02] MEDS: PULMICORT IH SCH ×2 (13:42→20:48)
[2017-07-02] MEDS: BROVANA NEBU IH SCH ×2 (13:43→20:49)
[2017-07-03] MEDS ORDERED: AMBIEN PO ONE (00:15)
[2017-07-03] MEDS ORDERED: ISOPTO TEARS 0.5% OU PRN (00:20)
[2017-07-03] MEDS: TESSALON PERLES PO SCH ×3 (06:41→22:46)
[2017-07-03 06:42] LABS: Hematocrit 40.3 % (35.5-45.6); Hemoglobin 13.7 gm/dl (11.8-15.2); Mean Corpuscular HGB Conc 34 % (32-34); Mean Corpuscular Hemoglobin 31 pg (28-32); Mean Corpuscular Volume 90 fl (84-94); Platelet Count 146 K/mm3 (140-440); Red Blood Count 4.48 M/mm3 (3.65-5.03); Red Cell Distribution Width 15.2 % (13.2-15.2)
[2017-07-03 07:03] LABS: Monocytes # (Auto) 0.6 K/mm3 (0.0-0.8); Monocytes % (Auto) 5.1 % (0.0-7.3)
[2017-07-03 07:20] LABS: BUN/Creatinine Ratio 33; Blood Urea Nitrogen 20 mg/dL (9-20); Calcium 8.3 mg/dL (8.4-10.2); Hemolysis Index 7
[2017-07-03] MEDS: NACL 0.9% 1000 ML 1,000 ML IV SCH ×2 (07:38→15:26)
[2017-07-03] MEDS: PULMICORT IH SCH ×3 (07:39→19:08)
[2017-07-03] MEDS: DUONEB *Not for PRN Use IH SCH ×3 (07:39→19:12)
[2017-07-03] MEDS: BROVANA NEBU IH SCH ×3 (07:39→19:08)
[2017-07-03] MEDS ORDERED: LEVAQUIN PO ONE (09:16)
[2017-07-03] MEDS: PROTONIX PO SCH (10:34)
[2017-07-03] MEDS ORDERED: PROVENTIL IH PRN (11:14)
[2017-07-03 11:32] LABS: Anisocytosis 1+; Basophils % (Manual) 0 % (0.0-1.8); Eosinophils % (Manual) 0 % (0.0-4.3); Total Cells Counted 100
[2017-07-03 11:33] LABS: Platelet Estimate Consistent w Auto
[2017-07-03] MEDS: HEPARIN SUB-Q SCH ×2 (13:25→22:44)
[2017-07-03] MEDS ORDERED: DUONEB *Not for PRN Use IH SCH (14:00)
--- NOTE | 2017-07-03 14:27 | Progress Note ---
Assessment and Plan Assessment and plan: Patient is 62-year-old man with a history of COPD, homelessness, tobacco dependency and depression who presents with shortness of breath. Patient had abnormal chest x-rays so CT of chest without contrast because creatinine 1.5 shows severe emphysematous changes, no pneumothorax. Elevated d-dimer and underwent a V/Q scan which showed low probability of PE. Patient is admitted for COPD exacerbation -Acute copd exaceration: treat with iv steroids, abx, nebs -Tobacco dependancy: advised to stop -Severe malnutrition, bmi 15.7: consulted Physiological Chemist -ARF/CKD 3 most likely, vasomotor nephropathy,poa: ivf, repeat in am -GI/DVT prophylaxis reviewed. full code Disposition: anticipate d/c in 1-2 days depending on clinical improvement of copd wean steroids not on o2 Anticipate discharge tomorrow. History Interval history: Patient was seen and examined. Follow-up on current diagnosis of shortness of breath which is still present but improved. Overnight uneventful. Patient denies any chest pain, nausea/vomiting or severe headaches. Imaging, nursing note, chart, labs and old chart reviewed. Discussed with patient. Hospitalist Physical - Physical exam Narrative exam: GEN: cachethic, unkempt NAD, AWAKE, ALERT, ORIENTATED x 3, bmi 15.7 HEENT: NCAT, EOMI, PERRL, OP Clear NECK: supple, no adenopathy, no thyromegaly, no JVD CVS/HEART: RRR, NORMAL S1S2, pulses present bilaterally CHEST/LUNGS: bilateral rhonchi, Symmetrical chest expansion, diminished air entry bilaterally GI/Abdomen: soft, NTND, good bowel sounds, no guarding or rebound /Bladder: no suprapubic tenderness, no CVA or paraspinal tenderness EXT/Skin: no c/c/e, no obvious rash MSK: FROM x 4 Neuro: CN 2-12 grossly intact, no new focal deficits Psych: calm - Constitutional Vitals: Temp Pulse Resp BP Pulse Ox 99 F 77 18 138/83 93 07/03/17 08:00 07/03/17 08:00 07/03/17 08:00 07/03/17 08:00 07/03/17 11:13 General appearance: Present: no acute distress, disheveled, other (severe malnutrition) Results - Labs CBC & Chem 7: 07/03/17 05:01 07/03/17 05:01 Labs: Laboratory Last Values WBC 11.1 K/mm3 (4.5-11.0) H 07/03/17 05:01 RBC 4.48 M/mm3 (3.65-5.03) 07/03/17 05:01 Hgb 13.7 gm/dl (11.8-15.2) 07/03/17 05:01 Hct 40.3 % (35.5-45.6) D 07/03/17 05:01 MCV 90 fl (84-94) 07/03/17 05:01 MCH 31 pg (28-32) 07/03/17 05:01 MCHC 34 % (32-34) 07/03/17 05:01 RDW 15.2 % (13.2-15.2) 07/03/17 05:01 Plt Count 146 K/mm3 (140-440) 07/03/17 05:01 Lymph % (Auto) 14.5 % (13.4-35.0) 07/01/17 18:29 [place] % (Auto) 5.1 % (0.0-7.3) 07/03/17 05:01 Eos % (Auto) 0.0 % (0.0-4.3) 07/03/17 05:01 Baso % (Auto) 0.9 % (0.0-1.8) 07/01/17 18:29 Lymph # 1.5 K/mm3 (1.2-5.4) 07/01/17 18:29 [place] # 0.6 K/mm3 (0.0-0.8) 07/03/17 05:01 Eos # 0.0 K/mm3 (0.0-0.4) 07/03/17 05:01 Baso # 0.0 K/mm3 (0.0-0.1) 07/03/17 05:01 Add Manual Diff Complete 07/03/17 05:01 Total Counted 100 07/03/17 05:01 Seg Neutrophils % Supervisor Varnish 07/03/17 05:01 Seg Neuts % (Manual) 92.0 % (40.0-70.0) H 07/03/17 05:01 Band Neutrophils % 0 % 07/03/17 05:01 Lymphocytes % (Manual) 4.0 % (13.4-35.0) L 07/03/17 05:01 Reactive Lymphs % (Man) 0 % 07/03/17 05:01 Monocytes % (Manual) 4.0 % (0.0-7.3) 07/03/17 05:01 Eosinophils % (Manual) 0 % (0.0-4.3) 07/03/17 05:01 Basophils % (Manual) 0 % (0.0-1.8) 07/03/17 05:01 Metamyelocytes % 0 % 07/03/17 05:01 Myelocytes % 0 % 07/03/17 05:01 Promyelocytes % 0 % 07/03/17 05:01 Blast Cells % 0 % 07/03/17 05:01 Nucleated RBC % Not Reportable 07/03/17 05:01 Seg Neutrophils # 10.2 K/mm3 (1.8-7.7) H 07/03/17 05:01 Seg Neutrophils # Man 10.2 K/mm3 (1.8-7.7) H 07/03/17 05:01 Band Neutrophils # 0.0 K/mm3 07/03/17 05:01 Lymphocytes # (Manual) 0.4 K/mm3 (1.2-5.4) L 07/03/17 05:01 Abs React Lymphs (Man) 0.0 K/mm3 07/03/17 05:01 Monocytes # (Manual) 0.4 K/mm3 (0.0-0.8) 07/03/17 05:01 Eosinophils # (Manual) 0.0 K/mm3 (0.0-0.4) 07/03/17 05:01 Basophils # (Manual) 0.0 K/mm3 (0.0-0.1) 07/03/17 05:01 Metamyelocytes # 0.0 K/mm3 07/03/17 05:01 Myelocytes # 0.0 K/mm3 07/03/17 05:01 Promyelocytes # 0.0 K/mm3 07/03/17 05:01 Blast Cells # 0.0 K/mm3 07/03/17 05:01 WBC Morphology Not Reportable 07/03/17 05:01 Hypersegmented Neuts Not Reportable 07/03/17 05:01 Hyposegmented Neuts Not Reportable 07/03/17 05:01 Hypogranular Neuts Not Reportable 07/03/17 05:01 Smudge Cells Not Reportable 07/03/17 05:01 Toxic Granulation Not Reportable 07/03/17 05:01 Toxic Vacuolation Not Reportable 07/03/17 05:01 Dohle Bodies Not Reportable 07/03/17 05:01 Pelger-Huet Anomaly Not Reportable 07/03/17 05:01 Sheryl Rods Not Reportable 07/03/17 05:01 Platelet Estimate Consistent w auto 07/03/17 05:01 Clumped Platelets Not Reportable 07/03/17 05:01 Plt Clumps, EDTA Not Reportable 07/03/17 05:01 Large Platelets Not Reportable 07/03/17 05:01 Giant Platelets Not Reportable 07/03/17 05:01 Platelet Satelliting Not Reportable 07/03/17 05:01 Plt Morphology Comment Not Reportable 07/03/17 05:01 RBC Morphology Not Reportable 07/03/17 05:01 Dimorphic RBCs Not Reportable 07/03/17 05:01 Polychromasia Not Reportable 07/03/17 05:01 Hypochromasia Not Reportable 07/03/17 05:01 Poikilocytosis Not Reportable 07/03/17 05:01 Anisocytosis 1+ 07/03/17 05:01 Microcytosis Not Reportable 07/03/17 05:01 Macrocytosis Not Reportable 07/03/17 05:01 Spherocytes Not Reportable 07/03/17 05:01 Pappenheimer Bodies Not Reportable 07/03/17 05:01 Sickle Cells Not Reportable 07/03/17 05:01 Target Cells Not Reportable 07/03/17 05:01 Tear Drop Cells Not Reportable 07/03/17 05:01 Ovalocytes Not Reportable 07/03/17 05:01 Helmet Cells Not Reportable 07/03/17 05:01 [place]ughson Bodies Not Reportable 07/03/17 05:01 [place] Rings Not Reportable 07/03/17 05:01 [place] Cells Not Reportable 07/03/17 05:01 Bite Cells Not Reportable 07/03/17 05:01 Crenated Cell Not Reportable 07/03/17 05:01 Elliptocytes Not Reportable 07/03/17 05:01 Acanthocytes (Spur) Not Reportable 07/03/17 05:01 Rouleaux Not Reportable 07/03/17 05:01 Hemoglobin C Crystals Not Reportable 07/03/17 05:01 Schistocytes Not Reportable 07/03/17 05:01 Malaria parasites Not Reportable 07/03/17 05:01 Dirk Bodies Not Reportable 07/03/17 05:01 Hem Pathologist Commnt No 07/03/17 05:01 D-Dimer 331.47 ng/mlDDU (0-234) H 07/01/17 20:28 Sodium 142 mmol/L (137-145) 07/03/17 05:01 Potassium 4.0 mmol/L (3.6-5.0) 07/03/17 05:01 Chloride 106.0 mmol/L (98-107) 07/03/17 05:01 Carbon Dioxide 24 mmol/L (22-30) 07/03/17 05:01 Anion Gap 16 mmol/L 07/03/17 05:01 BUN 20 mg/dL (9-20) 07/03/17 05:01 Creatinine 0.6 mg/dL (0.8-1.5) L D 07/03/17 05:01 Estimated GFR > 60 ml/min 07/03/17 05:01 BUN/Creatinine Ratio 33 % 07/03/17 05:01 Glucose 145 mg/dL (75-100) H 07/03/17 05:01 Calcium 8.3 mg/dL (8.4-10.2) L 07/03/17 05:01 Total Creatine Kinase 95 units/L (55-170) 07/01/17 20:28 CK-MB (CK-2) 1.9 ng/mL (0.0-4.0) 07/01/17 20:28 CK-MB (CK-2) Rel Index 2.0 (0-4) 07/01/17 20:28 Troponin T < 0.010 ng/mL (0.00-0.029) 07/01/17 20:28 NT-Pro-B Natriuret Pep 553.3 pg/mL (0-900) 07/01/17 20:28 Urine Color Yellow (Yellow) 07/01/17 00:20 Urine Turbidity Clear (Clear) 07/01/17 00:20 Urine pH 5.0 (5.0-7.0) 07/01/17 00:20 Ur Specific [place] 1.019 (1.003-1.030) 07/01/17 00:20 Urine Protein 30 mg/dl mg/dL (Negative) 07/01/17 00:20 Urine Glucose (UA) Neg mg/dL (Negative) 07/01/17 00:20 Urine Ketones Neg mg/dL (Negative) 07/01/17 00:20 Urine Blood Neg (Negative) 07/01/17 00:20 Urine Nitrite Neg (Negative) 07/01/17 00:20 Urine Bilirubin Neg (Negative) 07/01/17 00:20 Urine Urobilinogen < 2.0 mg/dL (<2.0) 07/01/17 00:20 Ur Leukocyte Esterase Neg (Negative) 07/01/17 00:20 Urine WBC (Auto) 6.0 /HPF (0.0-6.0) 07/01/17 00:20 Urine RBC (Auto) 3.0 /HPF (0.0-6.0) 07/01/17 00:20 U Epithel Cells (Auto) 1.0 /HPF (0-13.0) 07/01/17 00:20 Hyaline Casts 76 /LPF 07/01/17 00:20 Urine Mucus Few /HPF 07/01/17 00:20
[2017-07-03] MEDS: ROBITUSSIN AC PO PRN ×2 (16:25→22:46)
[2017-07-03] MEDS ORDERED: LEVAQUIN PO SCH (22:00)
[2017-07-04 05:33] LABS: Hematocrit 41.3 % (35.5-45.6); Hemoglobin 13.9 gm/dl (11.8-15.2); Mean Corpuscular HGB Conc 34 % (32-34); Mean Corpuscular Hemoglobin 30 pg (28-32); Mean Corpuscular Volume 90 fl (84-94); Platelet Count 144 K/mm3 (140-440); Red Blood Count 4.58 M/mm3 (3.65-5.03); Red Cell Distribution Width 14.9 % (13.2-15.2)
[2017-07-04 05:59] LABS: BUN/Creatinine Ratio 26; Blood Urea Nitrogen 18 mg/dL (9-20); Calcium 8.5 mg/dL (8.4-10.2); Hemolysis Index 8
[2017-07-04] MEDS: TESSALON PERLES PO SCH (06:55)
[2017-07-04] MEDS: DUONEB *Not for PRN Use IH SCH (07:48)
[2017-07-04] MEDS: BROVANA NEBU IH SCH (07:48)
[2017-07-04] MEDS: PULMICORT IH SCH (07:48)
[2017-07-04 09:08] VITALS: BP 134/88
[2017-07-04] MEDS: PROTONIX PO SCH (11:09)
[2017-07-04] MEDS: HEPARIN SUB-Q SCH (11:09)
--- NOTE | 2017-07-04 11:45 | Discharge Summary ---
Providers - Providers Date of Admission: 07/02/17 03:39 Date of discharge: 07/04/17 Attending physician: REGI DUQUE 07/02/17 08:00 Consult to Dietitian/Nutrition [CONS] Routine Physician Instructions: Reason For Exam: Reason for Consult: Malnutrition Primary care physician: RASHID JOY Hospitalization Condition: Serious Hospital course: Patient is 62-year-old man with a history of COPD, homelessness, tobacco dependency and depression who presents with shortness of breath. Patient had abnormal chest x-rays so CT of chest without contrast because creatinine 1.5 shows severe emphysematous changes, no pneumothorax. Elevated d-dimer and underwent a V/Q scan which showed low probability of PE. Patient is admitted for COPD exacerbation -Acute copd exaceration: treat with iv steroids, abx, nebs -Tobacco dependancy: advised to stop -Severe malnutrition, bmi 15.7: consulted Glass Novelty Maker -ARF/CKD 3 most likely, vasomotor nephropathy,poa: ivf, repeat in am -GI/DVT prophylaxis reviewed. full code Disposition: anticipate d/c in 1-2 days depending on clinical improvement of copd wean steroids not on o2 Anticipate discharge today, it appears the doesn't want to leave, he is upset. D /W case management, Sherrie, regarding living situation, he told her that he has a place to live and declined assistance/nursing home placement Disposition: DC-01 TO HOME OR SELFCARE Time spent for discharge: 34 minutes Core Measure Documentation - Palliative Care Palliative Care/ Comfort Measures: Not Applicable - Core Measures Any of the following diagnoses?: none - VTE Discharge Requirements Deep Vein Thrombosis/Pulmonary Embolism Present on Admission: No Has pt received <5 days of overlap therapy or INR<2.0: No Anticoagulant overlap therapy prescribed at discharge: No Contraindication No Overlap Therapy order at DC: Not Indicated Exam - Physical Exam Narrative exam: GEN: cachethic, unkempt NAD, AWAKE, ALERT, ORIENTATED x 3, bmi 15.7 HEENT: NCAT, EOMI, PERRL, OP Clear NECK: supple, no adenopathy, no thyromegaly, no JVD CVS/HEART: RRR, NORMAL S1S2, pulses present bilaterally CHEST/LUNGS: bilateral rhonchi, Symmetrical chest expansion, diminished air entry bilaterally GI/Abdomen: soft, NTND, good bowel sounds, no guarding or rebound /Bladder: no suprapubic tenderness, no CVA or paraspinal tenderness EXT/Skin: no c/c/e, no obvious rash MSK: FROM x 4 Neuro: CN 2-12 grossly intact, no new focal deficits Psych: calm - Constitutional Vitals: Temp Pulse Resp BP Pulse Ox 98.3 F 66 18 134/88 93 07/04/17 08:00 07/04/17 08:00 07/04/17 08:00 07/04/17 08:00 07/04/17 08:00 Plan Activity: other (no strenous activity) Diet: regular Special Instructions: smoking cessation Durable Medical Equipment Needed Upon Discharge: Nebulizer Follow up with: RASHID JOY MD [Primary Care Provider] - 7 Days Prescriptions: ALBUTEROL Inhaler [ProAir HFA Inhaler] 2 puff IH QID PRN #1 inhalation PRN Reason: Shortness Of Breath ALBUTEROL NEB's [Proventil 0.083% NEBS] 2.5 mg IH Q4HRT PRN #30 nebu PRN Reason: Shortness Of Breath Budesonide/Formoterol Fumarate [Symbicort 160-4.5 Mcg Inhaler] 1 puff IH BID #1 hfa.aer.ad guaiFENesin/CODEINE [Robitussin AC] 10 ml PO Q6H PRN #3 day PRN Reason: Cough Levofloxacin [Levaquin TAB] 750 mg PO Q24H #5 tablet Pantoprazole [Protonix TAB] 40 mg PO QDAY #7 tablet Prednisone [predniSONE 10 mg (6-Day Pack, 21 Tabs)] 10 mg PO .TAPER #1 tab.ds.pk Tiotropium [place] [Spiriva] 1 puff IH DAILY #30 cap.w.dev Other Discharge Orders: Nebulizer (Amb) Location: None Selected
== END 2017-07-04 15:15 | disposition home or self-care (01) | DRG 190 ==
LOC: ED 18:12 → 3A 07-02 03:39
PROVIDERS: ADMIT Family Medicine; ATTEND Internal Medicine
PROC: 3E0234Z Introduction of Serum, Toxoid and Vaccine into Muscle, Percutaneous Approach (ICD-10-PCS; principal; 2017-07-02)
DX: J44.1 Chronic obstructive pulmonary disease with (acute) exacerbation (principal); E43 Unspecified severe protein-calorie malnutrition; N17.0 Acute kidney failure with tubular necrosis; Z68.1 Body mass index [BMI] 19.9 or less, adult; Z88.0 Allergy status to penicillin; Z23 Encounter for immunization; F32.9 Major depressive disorder, single episode, unspecified; Z82.49 Family history of ischemic heart disease and other diseases of the circulatory system; F17.200 Nicotine dependence, unspecified, uncomplicated; R35.0 Frequency of micturition; I95.89 Other hypotension; Z59.0 Homelessness; R62.7 Adult failure to thrive; G89.4 Chronic pain syndrome; N18.3 Chronic kidney disease, stage 3 (moderate)
CPT/HCPCS: 36415; 71045; 71250; 78582; 80048; 81001; 82550; 82553; 83880; 84484; 85007; 85025; 85027; 85379; 87040; 90686; 93005; 93010; 94640; 94644; 96365; 96366; 96375; 99406; A9540; A9558; J1170; J1644; J1956; J2920; J2930; J7030

== ENCOUNTER 2018-04-20 13:56 | Inpatient (IN) | payer OTHER ==
[2018-04-20 14:37] LABS: Basophils # (Auto) 0.1 K/mm3 (0.0-0.1); Basophils % (Auto) 0.3 % (0.0-1.8); Hematocrit 47.2 % (35.5-45.6); Hemoglobin 15.6 gm/dl (11.8-15.2); Lymphocytes # (Auto) 0.8 K/mm3 (1.2-5.4); Lymphocytes % (Auto) 4.5 % (13.4-35.0); Mean Corpuscular HGB Conc 33 % (32-34); Mean Corpuscular Volume 93 fl (84-94); Monocytes # (Auto) 1.5 K/mm3 (0.0-0.8); Monocytes % (Auto) 8.3 % (0.0-7.3); Platelet Count 207 K/mm3 (140-440); Red Blood Count 5.06 M/mm3 (3.65-5.03); Red Cell Distribution Width 14.6 % (13.2-15.2)
[2018-04-20] MEDS ORDERED: NACL 0.9% 1000 ML IV ONE (14:46)
[2018-04-20] MEDS ORDERED: SOLU-Medrol IV ONE (14:48)
[2018-04-20] MEDS ORDERED: LEVAQUIN 750MG/150ML 750 MG/150 ML BAG IV ONE (14:48)
[2018-04-20] MEDS ORDERED: ATROVENT IH ONE (14:48)
[2018-04-20] MEDS ORDERED: PROVENTIL IH ONE (14:48)
--- NOTE | 2018-04-20 14:49 | XRay Report ---
AP CHEST: HISTORY: Shortness of breath Severe underlying emphysema is suspected. Hazy air space opacity is identified in the right perihilar region consistent with pneumonia. The remainder of the lungs are clear. No pleural effusion or pneumothorax. Normal heart size. IMPRESSION: Severe emphysema. Right lung infiltrate concerning for pneumonia.
[2018-04-20 14:59] LABS: BUN/Creatinine Ratio 19; Blood Urea Nitrogen 21 mg/dL (9-20); Hemolysis Index 12
[2018-04-20] MEDS ORDERED: MORPHINE IV ONE (15:40)
--- NOTE | 2018-04-20 15:48 | Emergency Department Report ---
ED Shortness of Breath HPI - General Chief Complaint: Dyspnea/Respdistress Stated Complaint: CHEST PAIN/COPD Time Seen by Provider: 04/20/18 14:45 Source: patient Mode of arrival: Ambulatory Limitations: No Limitations - History of Present Illness Initial Comments: Patient is a 62-year-old gentleman with a past smoker history of COPD who is presenting with respiratory distress. Patient states he's been having a worsening cough over the past week with shortness of breath. Patient denies any nausea vomiting diarrhea. Patient states cough is productive of yellowish sputum. Patient also states that he has some discomfort in his chest especially when he coughs. Pain Scale: 7 Quality: aching Consistency: constant Worsens With: nothing Known History Of: COPD - Related Data Previous Rx's Medication Instructions Recorded Last Taken Type ALBUTEROL Inhaler (OR & NICU) 2 puff IH QID PRN #1 inhalation 07/04/17 Unknown Rx [ProAir HFA Inhaler] ALBUTEROL NEB's [Proventil 0.083% 2.5 mg IH Q4HRT PRN #30 nebu 07/04/17 Unknown Rx NEBS] Budesonide/Formoterol Fumarate 1 puff IH BID #1 hfa.aer.ad 07/04/17 Unknown Rx [Symbicort 160-4.5 Mcg Inhaler] Pantoprazole [Protonix TAB] 40 mg PO QDAY #7 tablet 07/04/17 Unknown Rx Prednisone [predniSONE 10 mg 10 mg PO .TAPER #1 tab.ds.pk 07/04/17 Unknown Rx (6-Day Pack, 21 Tabs)] Tiotropium [place] [Spiriva] 1 puff IH DAILY #30 cap.w.dev 07/04/17 Unknown Rx guaiFENesin/CODEINE [Robitussin AC] 10 ml PO Q6H PRN #3 day 07/04/17 Unknown Rx levoFLOXacin [Levaquin TAB] 750 mg PO Q24H #5 tablet 07/04/17 Unknown Rx Allergies Allergy/AdvReac Type Severity Reaction Status Date / Time penicillin Allergy Unknown Verified 04/20/18 14:18 ED Review of Systems ROS: Stated complaint: CHEST PAIN/COPD Other details as noted in HPI Comment: All other systems reviewed and negative ED Past Medical Hx - Past Medical History Previous Medical History?: Yes Hx Diabetes: No Hx Psychiatric Treatment: Yes (DEPRESSION) Hx Asthma: No Hx COPD: Yes - Surgical History Past Surgical History?: Yes Additional Surgical History: bladder - as a child - Social History Smoking Status: Current Every Day Smoker Substance Use Type: Cocaine - Medications Home Medications: Home Medications Medication Instructions Recorded Confirmed Last Taken Type ALBUTEROL Inhaler (OR & NICU) 2 puff IH QID PRN #1 inhalation 07/04/17 Unknown Rx [ProAir HFA Inhaler] ALBUTEROL NEB's [Proventil 0.083% 2.5 mg IH Q4HRT PRN #30 nebu 07/04/17 Unknown Rx NEBS] Budesonide/Formoterol Fumarate 1 puff IH BID #1 hfa.aer.ad 07/04/17 Unknown Rx [Symbicort 160-4.5 Mcg Inhaler] Pantoprazole [Protonix TAB] 40 mg PO QDAY #7 tablet 07/04/17 Unknown Rx Prednisone [predniSONE 10 mg 10 mg PO .TAPER #1 tab.ds.pk 07/04/17 Unknown Rx (6-Day Pack, 21 Tabs)] Tiotropium [place] [Spiriva] 1 puff IH DAILY #30 cap.w.dev 07/04/17 Unknown Rx guaiFENesin/CODEINE [Robitussin AC] 10 ml PO Q6H PRN #3 day 07/04/17 Unknown Rx levoFLOXacin [Levaquin TAB] 750 mg PO Q24H #5 tablet 07/04/17 Unknown Rx ED Physical Exam - General Limitations: No Limitations General appearance: alert, in no apparent distress - Head Head exam: Present: atraumatic, normocephalic - Eye Eye exam: Present: normal appearance - ENT ENT exam: Present: mucous membranes moist - Neck Neck exam: Present: normal inspection - Respiratory Respiratory exam: Present: respiratory distress, wheezes. Absent: normal lung sounds bilaterally, rales - Cardiovascular Cardiovascular Exam: Present: regular rate, normal rhythm. Absent: systolic murmur, diastolic murmur, rubs, gallop - GI/Abdominal GI/Abdominal exam: Present: soft, normal bowel sounds. Absent: distended, tenderness, guarding, rebound, rigid - Rectal Rectal exam: Present: deferred - Extremities Exam Extremities exam: Present: normal inspection - Back Exam Back exam: Present: normal inspection - Neurological Exam Neurological exam: Present: alert, oriented X3 - Psychiatric Psychiatric exam: Present: normal affect, normal mood - Skin Skin exam: Present: warm, dry, intact, normal color. Absent: rash ED Course Vital Signs 04/20/18 04/20/18 04/20/18 14:10 14:47 15:00 Temperature 97.7 F Pulse Rate 100 H 109 H Pulse Rate [ Anterior Bilateral Throughout] Respiratory 24 39 H Rate Respiratory Rate [Anterior Bilateral Throughout] Blood Pressure 128/88 160/99 114/79 O2 Sat by Pulse 92 96 94 Oximetry 04/20/18 15:11 Temperature Pulse Rate Pulse Rate [ 105 H Anterior Bilateral Throughout] Respiratory Rate Respiratory 36 H Rate [Anterior Bilateral Throughout] Blood Pressure O2 Sat by Pulse Oximetry ED Medical Decision Making - Lab Data Result diagrams: 04/20/18 14:23 04/20/18 14:23 Lab Results 04/20/18 04/20/18 Range/Units 14:23 14:23 WBC 18.3 H (4.5-11.0) K/mm3 RBC 5.06 H (3.65-5.03) M/mm3 Hgb 15.6 H (11.8-15.2) gm/dl Hct 47.2 H (35.5-45.6) % MCV 93 (84-94) fl MCH 31 (28-32) pg MCHC 33 (32-34) % RDW 14.6 (13.2-15.2) % Plt Count 207 (140-440) K/mm3 Lymph % (Auto) 4.5 L (13.4-35.0) % [place] % (Auto) 8.3 H (0.0-7.3) % Eos % (Auto) 0.0 (0.0-4.3) % Baso % (Auto) 0.3 (0.0-1.8) % Lymph # 0.8 L (1.2-5.4) K/mm3 [place] # 1.5 H (0.0-0.8) K/mm3 Eos # 0.0 (0.0-0.4) K/mm3 Baso # 0.1 (0.0-0.1) K/mm3 Seg Neutrophils % 86.9 H (40.0-70.0) % Seg Neutrophils # 15.9 H (1.8-7.7) K/mm3 Sodium 136 L (137-145) mmol/L Potassium 4.7 (3.6-5.0) mmol/L Chloride 97.1 L (98-107) mmol/L Carbon Dioxide 26 (22-30) mmol/L Anion Gap 18 mmol/L BUN 21 H (9-20) mg/dL Creatinine 1.1 (0.8-1.5) mg/dL Estimated GFR > 60 ml/min BUN/Creatinine Ratio 19 % Glucose 190 H (75-100) mg/dL Calcium 9.0 (8.4-10.2) mg/dL Troponin T < 0.010 (0.00-0.029) ng/mL - EKG Data -: EKG Interpreted by Md EKG shows normal: sinus rhythm, axis, intervals, QRS complexes, ST-T waves Rate: normal - EKG Data Interpretation: normal EKG (Septra for several PACs) - Radiology Data Radiology results: report reviewed Right lower lobe infiltrate consistent with pneumonia - Medical Decision Making Patient with diffuse wheeze on arrival as well as abnormal vital signs. Patient met sepsis criteria and was started on IV fluid hydration. White count was elevated at 18,000. Patient received 2 hour-long breathing treatment on arrival. Patient's after seeing the pneumonia will be admitted to the hospital. Critical Care Time: Yes (30) Critical care attestation.: If time is entered above; I have spent that time in minutes in the direct care of this critically ill patient, excluding procedure time. ED Disposition Clinical Impression: COPD exacerbation Pneumonia Qualifiers: Pneumonia type: due to unspecified organism Laterality: right Lung location: lower lobe of lung Qualified Code(s): J18.1 - Lobar pneumonia, unspecified organism Disposition: OP ADMIT IP TO THIS HOSP Is pt being admited?: Yes Does the pt Need Aspirin: No Condition: Stable Instructions: Chronic Obstructive Pulmonary Disease (ED), Bacterial Pneumonia (ED) Time of Disposition: 15:48
--- NOTE | 2018-04-21 02:59 | Event Note ---
Date: 04/20/18 See H/p in reports
[2018-04-21] MEDS ORDERED: ZOFRAN IV PRN (03:01)
[2018-04-21] MEDS ORDERED: DILAUDID IV PRN (03:01)
[2018-04-21] MEDS ORDERED: TYLENOL PO PRN (03:01)
[2018-04-21] MEDS ORDERED: PROVENTIL IH PRN (03:03)
[2018-04-21] MEDS ORDERED: VANCOMYCIN PHARMACY TO DOSE IV SCH (04:00)
[2018-04-21] MEDS ORDERED: MAXIPIME/NS 2 GM/100 ML 2 GM/100 ML BAG IV SCH (04:00)
[2018-04-21] MEDS: NACL 0.9% 1000 ML 1,000 ML IV SCH (05:24)
[2018-04-21] MEDS: SOLU-Medrol IV SCH ×3 (05:25→22:13)
[2018-04-21] MEDS ORDERED: VANCOMYCIN/NS 1 GM/250 ML 1 GM/250 ML BAG IV ONE (06:00)
--- NOTE | 2018-04-21 07:37 | Progress Note ---
Assessment and Plan Assessment and plan: 62-year-old male patient with significant history of COPD and ongoing tobacco use was admitted with acute respiratory distress, right-sided pneumonia and COPD exacerbation --Acute hypoxic respiratory failure; Secondary to COPD exacerbation and right-sided pneumonia Oxygen titrated HAS to more than 90%, nebulizers, IV steroids, IV antibiotics --Right-sided pneumonia probably community-acquired; Follow cultures, IV antibiotics, supportive care --Lactic acidosis; secondary to sepsis due to pneumonia and acute bronchitis --Sepsis; leukocytosis secondary to pneumonia --Acute exacerbation of COPD; oxygen titrated O2 sats more than 90% Nebulizers IV steroids tapering doses, inhalation steroids, antibiotics --Ongoing tobacco use; smoking cessation counseling, nicotine patch as needed --DVT prophylaxis; Lovenox Closely monitor the patient and adjust the management as needed Possible discharge in 1-2 days if stable History Interval history: Patient Admitted with acute hypoxic respiratory failure acute exacerbation of COPD and right-sided pneumonia complaints of mild cough Alert awake oriented 3 Vital signs noted Hospitalist Physical - Constitutional Vitals: Temp Pulse Resp BP Pulse Ox 97.4 F L 70 22 98/69 96 04/21/18 04:41 04/21/18 04:41 04/21/18 04:41 04/21/18 04:41 04/21/18 04:41 General appearance: Present: no acute distress, well-nourished - EENT Eyes: Present: PERRL, EOM intact - Neck Neck: Present: supple, normal ROM - Respiratory Respiratory effort: normal Respiratory: bilateral: diminished, rhonchi, negative: rales, wheezing - Cardiovascular Rhythm: regular Heart Sounds: Present: S1 & S2 - Extremities Extremities: no ischemia, No edema - Abdominal General gastrointestinal: soft, non-tender, non-distended, normal bowel sounds - Integumentary Integumentary: Present: clear, warm - Psychiatric Psychiatric: appropriate mood/affect, cooperative - Neurologic Neurologic: CNII-XII intact, moves all extremities Results - Labs CBC & Chem 7: 04/21/18 10:55 04/20/18 14:23 Labs: Laboratory Last Values WBC 18.3 K/mm3 (4.5-11.0) H 04/20/18 14:23 RBC 5.06 M/mm3 (3.65-5.03) H 04/20/18 14:23 Hgb 15.6 gm/dl (11.8-15.2) H 04/20/18 14:23 Hct 47.2 % (35.5-45.6) H 04/20/18 14:23 MCV 93 fl (84-94) 04/20/18 14:23 MCH 31 pg (28-32) 04/20/18 14:23 MCHC 33 % (32-34) 04/20/18 14:23 RDW 14.6 % (13.2-15.2) 04/20/18 14:23 Plt Count 207 K/mm3 (140-440) 04/20/18 14:23 Lymph % (Auto) 4.5 % (13.4-35.0) L 04/20/18 14:23 [place] % (Auto) 8.3 % (0.0-7.3) H 04/20/18 14:23 Eos % (Auto) 0.0 % (0.0-4.3) 04/20/18 14:23 Baso % (Auto) 0.3 % (0.0-1.8) 04/20/18 14:23 Lymph # 0.8 K/mm3 (1.2-5.4) L 04/20/18 14:23 [place] # 1.5 K/mm3 (0.0-0.8) H 04/20/18 14:23 Eos # 0.0 K/mm3 (0.0-0.4) 04/20/18 14:23 Baso # 0.1 K/mm3 (0.0-0.1) 04/20/18 14:23 Seg Neutrophils % 86.9 % (40.0-70.0) H 04/20/18 14:23 Seg Neutrophils # 15.9 K/mm3 (1.8-7.7) H 04/20/18 14:23 Sodium 136 mmol/L (137-145) L 04/20/18 14:23 Potassium 4.7 mmol/L (3.6-5.0) 04/20/18 14:23 Chloride 97.1 mmol/L (98-107) L 04/20/18 14:23 Carbon Dioxide 26 mmol/L (22-30) 04/20/18 14:23 Anion Gap 18 mmol/L 04/20/18 14:23 BUN 21 mg/dL (9-20) H 04/20/18 14:23 Creatinine 1.1 mg/dL (0.8-1.5) 04/20/18 14:23 Estimated GFR > 60 ml/min 04/20/18 14:23 BUN/Creatinine Ratio 19 % 04/20/18 14:23 Glucose 190 mg/dL (75-100) H 04/20/18 14:23 Lactic Acid 2.30 mmol/L (0.7-2.0) H* 04/20/18 23:41 Calcium 9.0 mg/dL (8.4-10.2) 04/20/18 14:23 Troponin T < 0.010 ng/mL (0.00-0.029) 04/20/18 14:23
[2018-04-21] MEDS: DUONEB *Not for PRN Use IH SCH ×4 (08:02→20:10)
[2018-04-21] MEDS: PERCOCET 5/325 PO PRN ×2 (09:05→17:18)
[2018-04-21] MEDS: HABITROL TD SCH (09:05)
--- NOTE | 2018-04-21 09:13 | History and Physical Report ---
CHIEF COMPLAINT: Increasing shortness of breath for 1 week. HISTORY OF PRESENT ILLNESS: A 62-year-old male with history of COPD, who comes in for increasing shortness of breath and respiratory distress for 1 week, more so for the last 24 hours. The patient has been having worsening cough. Cough productive of mucoid to yellow sputum. No fever, no chills. Shortness of breath on minimal exertion. No exacerbating or precipitating factors. PAST MEDICAL HISTORY: Significant for COPD and depression. PAST SURGICAL HISTORY: Bladder surgery as a child. SOCIAL HISTORY: Current everyday smoker pack a day. Cocaine occasionally. FAMILY HISTORY: Hypertension. CURRENT MEDICATIONS: Mostly inhalers on the chart. REVIEW OF SYSTEMS: Significant for increasing shortness of breath and wheezing. Cough productive of mucoid to yellow sputum. Otherwise, review of systems negative. PHYSICAL EXAMINATION: GENERAL: Elderly male, cooperative during examination. VITAL SIGNS: Blood pressure 101/68, temperature is 98.4, pulse is 79, initial sats are low 73-90. Blood pressure is 114/81, temperature is 97.7, pulse is 96. HEENT: Unremarkable. Pupils are equal and reactive. NECK: Supple, no lymphadenopathy, no thyromegaly. LUNGS: Bilateral inspiratory and expiratory rhonchi present. CARDIOVASCULAR: S1, S2 heard. No gallop, no murmur, no rub. Apical impulse in the left fifth intercostal space and midclavicular line. ABDOMEN: Benign. No hepatosplenomegaly. No guarding. EXTREMITIES: Good pedal pulses. CENTRAL NERVOUS SYSTEM: Alert and oriented x 4. SKIN: Normal. LABORATORY DATA: Lactic acid is 2.2, 3.2 and 2.3. Sodium is 133, potassium is 4.7, chloride is 97. BUN and creatinine is 21 and 1.03. White count is 18,300, H and H 15.6 and 47.2. Chest x-ray shows right lower lobe infiltrate. ASSESSMENT AND PLAN: 1. Sepsis. The patient's lactic acid is high. The patient started on broad-spectrum antibiotics. Also to continue chronic obstructive pulmonary disease treatment. 2. Right lower lobe pneumonia. The patient initiated on cefepime and vancomycin. Continue the same. 3. Chronic obstructive pulmonary disease exacerbation. The patient initiated on IV Solu-Medrol, DuoNeb and IV antibiotics. 4. Hyponatremia, mild. Should correct with IV fluids. 5. Deep venous thrombosis prophylaxis, Lovenox 40 mg subcutaneous daily. JOB# [id number] TERRENCEM/PONCHO MTDD
[2018-04-21] MEDS: LEVAQUIN 750MG/150ML 750 MG/150 ML BAG IV SCH (10:00)
[2018-04-21] MEDS: SODIUM CHLORIDE FLUSH SYRINGE 10 ML IV SCH ×2 (11:00→22:13)
[2018-04-21 11:16] LABS: Hemoglobin 13.8 gm/dl (11.8-15.2); Mean Corpuscular HGB Conc 34 % (32-34); Mean Corpuscular Volume 91 fl (84-94); Platelet Count 215 K/mm3 (140-440); Red Blood Count 4.49 M/mm3 (3.65-5.03); Red Cell Distribution Width 14.6 % (13.2-15.2)
[2018-04-21 12:03] LABS: Total Cells Counted 100
[2018-04-21 12:04] LABS: Basophils % (Manual) 0 % (0.0-1.8); Eosinophils % (Manual) 0 % (0.0-4.3)
[2018-04-21 12:05] LABS: Anisocytosis 1+; Platelet Estimate Consistent w Auto
[2018-04-21] MEDS: VANCOMYCIN 750 MG in NACL 0.9% 250ML 250 ML IV SCH (19:01)
[2018-04-21] MEDS: LOVENOX SUB-Q SCH (22:12)
[2018-04-22] MEDS: NACL 0.9% 1000 ML 1,000 ML IV SCH (00:13)
[2018-04-22] MEDS: SOLU-Medrol IV SCH ×3 (06:04→22:31)
[2018-04-22] MEDS: VANCOMYCIN 750 MG in NACL 0.9% 250ML 250 ML IV SCH ×2 (06:04→18:33)
[2018-04-22] MEDS: SODIUM CHLORIDE FLUSH SYRINGE 10 ML IV PRN (06:05)
[2018-04-22 06:09] LABS: Hemoglobin 12.7 gm/dl (11.8-15.2); Mean Corpuscular HGB Conc 34 % (32-34); Mean Corpuscular Volume 92 fl (84-94); Platelet Count 223 K/mm3 (140-440); Red Blood Count 4.13 M/mm3 (3.65-5.03); Red Cell Distribution Width 14.5 % (13.2-15.2)
[2018-04-22 06:26] LABS: Alanine Aminotransferase 15 units/L (7-56); Albumin 2.7 g/dL (3.9-5); Blood Urea Nitrogen 22 mg/dL (9-20); Calcium 8.2 mg/dL (8.4-10.2); Hemolysis Index 8
[2018-04-22 06:49] LABS: Band Neutrophils # (Manual) 0.6 K/mm3; Basophils % (Manual) 0 % (0.0-1.8); Eosinophils % (Manual) 0 % (0.0-4.3); Total Cells Counted 100
[2018-04-22 06:50] LABS: Anisocytosis 1+; Burr Cells 1+; Ovalocytes 1+; Tear Drop Cells Rare
[2018-04-22 06:52] LABS: BUN/Creatinine Ratio 37
--- NOTE | 2018-04-22 08:43 | Progress Note ---
Assessment and Plan Assessment and plan: 62-year-old male patient with significant history of COPD and ongoing tobacco use was admitted with acute respiratory distress, right-sided pneumonia and COPD exacerbation --Lactic acidosis; secondary to sepsis due to pneumonia and acute bronchitis --Sepsis; leukocytosis secondary to pneumonia --Right-sided pneumonia probably community-acquired; Follow cultures, IV antibiotics, supportive care --Acute hypoxic respiratory failure; improvement Secondary to COPD exacerbation and right-sided pneumonia Oxygen titrated HAS to more than 90%, nebulizers, IV steroids, IV antibiotics --Acute exacerbation of COPD; oxygen titrated O2 sats more than 90% Nebulizers . Taper IV steroids , inhalation steroids, antibiotics --Ongoing tobacco use; smoking cessation counseling, nicotine patch as needed --Severe malnutrition; nutrition supplements, supportive care --DVT prophylaxis; Lovenox Closely monitor the patient and adjust the management as needed Possible discharge in 1-2 days if stable History Interval history: Patient seen and examined medical records reviewed The patient feels slightly better since has mild shortness of breath Admitted with right-sided pneumonia and acute exacerbation of COPD Symptoms slightly improved Patient alert awake oriented 3, cachectic disheveled Vital signs reviewed Hospitalist Physical - Constitutional Vitals: Temp Pulse Resp BP Pulse Ox 97.0 F L 84 18 121/84 97 04/22/18 07:59 04/22/18 07:59 04/22/18 07:59 04/22/18 07:59 04/22/18 07:59 General appearance: Present: no acute distress, well-nourished - EENT Eyes: Present: PERRL, EOM intact - Neck Neck: Present: supple, normal ROM - Respiratory Respiratory effort: normal Respiratory: bilateral: diminished, rhonchi, negative: rales, wheezing - Cardiovascular Rhythm: regular Heart Sounds: Present: S1 & S2 - Extremities Extremities: no ischemia, No edema - Abdominal General gastrointestinal: soft, non-tender, non-distended, normal bowel sounds - Integumentary Integumentary: Present: clear, warm - Psychiatric Psychiatric: appropriate mood/affect, cooperative - Neurologic Neurologic: CNII-XII intact, moves all extremities Results - Labs CBC & Chem 7: 04/22/18 05:04 04/22/18 05:47 Labs: Laboratory Last Values WBC 19.6 K/mm3 (4.5-11.0) H 04/22/18 05:04 RBC 4.13 M/mm3 (3.65-5.03) 04/22/18 05:04 Hgb 12.7 gm/dl (11.8-15.2) 04/22/18 05:04 Hct 38.0 % (35.5-45.6) 04/22/18 05:04 MCV 92 fl (84-94) 04/22/18 05:04 MCH 31 pg (28-32) 04/22/18 05:04 MCHC 34 % (32-34) 04/22/18 05:04 RDW 14.5 % (13.2-15.2) 04/22/18 05:04 Plt Count 223 K/mm3 (140-440) 04/22/18 05:04 Lymph % (Auto) 4.5 % (13.4-35.0) L 04/20/18 14:23 [place] % (Auto) 8.3 % (0.0-7.3) H 04/20/18 14:23 Eos % (Auto) 0.0 % (0.0-4.3) 04/20/18 14:23 Baso % (Auto) 0.3 % (0.0-1.8) 04/20/18 14:23 Lymph # 0.8 K/mm3 (1.2-5.4) L 04/20/18 14:23 [place] # 1.5 K/mm3 (0.0-0.8) H 04/20/18 14:23 Eos # 0.0 K/mm3 (0.0-0.4) 04/20/18 14:23 Baso # 0.1 K/mm3 (0.0-0.1) 04/20/18 14:23 Add Manual Diff Complete 04/22/18 05:04 Total Counted 100 04/22/18 05:04 Seg Neutrophils % Instrument Technician 04/22/18 05:04 Seg Neuts % (Manual) 93.0 % (40.0-70.0) H 04/22/18 05:04 Band Neutrophils % 3.0 % 04/22/18 05:04 Lymphocytes % (Manual) 1.0 % (13.4-35.0) L 04/22/18 05:04 Reactive Lymphs % (Man) 0 % 04/22/18 05:04 Monocytes % (Manual) 3.0 % (0.0-7.3) 04/22/18 05:04 Eosinophils % (Manual) 0 % (0.0-4.3) 04/22/18 05:04 Basophils % (Manual) 0 % (0.0-1.8) 04/22/18 05:04 Metamyelocytes % 0 % 04/22/18 05:04 Myelocytes % 0 % 04/22/18 05:04 Promyelocytes % 0 % 04/22/18 05:04 Blast Cells % 0 % 04/22/18 05:04 Nucleated RBC % Not Reportable 04/22/18 05:04 Seg Neutrophils # 15.9 K/mm3 (1.8-7.7) H 04/20/18 14:23 Seg Neutrophils # Man 18.2 K/mm3 (1.8-7.7) H 04/22/18 05:04 Band Neutrophils # 0.6 K/mm3 04/22/18 05:04 Lymphocytes # (Manual) 0.2 K/mm3 (1.2-5.4) L 04/22/18 05:04 Abs React Lymphs (Man) 0.0 K/mm3 04/22/18 05:04 Monocytes # (Manual) 0.6 K/mm3 (0.0-0.8) 04/22/18 05:04 Eosinophils # (Manual) 0.0 K/mm3 (0.0-0.4) 04/22/18 05:04 Basophils # (Manual) 0.0 K/mm3 (0.0-0.1) 04/22/18 05:04 Metamyelocytes # 0.0 K/mm3 04/22/18 05:04 Myelocytes # 0.0 K/mm3 04/22/18 05:04 Promyelocytes # 0.0 K/mm3 04/22/18 05:04 Blast Cells # 0.0 K/mm3 04/22/18 05:04 WBC Morphology Not Reportable 04/22/18 05:04 Hypersegmented Neuts Not Reportable 04/22/18 05:04 Hyposegmented Neuts Not Reportable 04/22/18 05:04 Hypogranular Neuts Not Reportable 04/22/18 05:04 Smudge Cells Not Reportable 04/22/18 05:04 Toxic Granulation Not Reportable 04/22/18 05:04 Toxic Vacuolation Not Reportable 04/22/18 05:04 Dohle Bodies Not Reportable 04/22/18 05:04 Pelger-Huet Anomaly Not Reportable 04/22/18 05:04 Sheryl Rods Not Reportable 04/22/18 05:04 Platelet Estimate Appears normal 04/22/18 05:04 Clumped Platelets Not Reportable 04/22/18 05:04 Plt Clumps, EDTA Not Reportable 04/22/18 05:04 Large Platelets Not Reportable 04/22/18 05:04 Giant Platelets Not Reportable 04/22/18 05:04 Platelet Satelliting Not Reportable 04/22/18 05:04 Plt Morphology Comment Not Reportable 04/22/18 05:04 RBC Morphology Not Reportable 04/22/18 05:04 Dimorphic RBCs Not Reportable 04/22/18 05:04 Polychromasia Rare 04/22/18 05:04 Hypochromasia Not Reportable 04/22/18 05:04 Poikilocytosis Not Reportable 04/22/18 05:04 Anisocytosis 1+ 04/22/18 05:04 Microcytosis Not Reportable 04/22/18 05:04 Macrocytosis Not Reportable 04/22/18 05:04 Spherocytes Not Reportable 04/22/18 05:04 Pappenheimer Bodies Not Reportable 04/22/18 05:04 Sickle Cells Not Reportable 04/22/18 05:04 Target Cells Not Reportable 04/22/18 05:04 Tear Drop Cells Rare 04/22/18 05:04 Ovalocytes 1+ 04/22/18 05:04 Helmet Cells Not Reportable 04/22/18 05:04 [place] Bodies Not Reportable 04/22/18 05:04 [place] Rings Not Reportable 04/22/18 05:04 Dung Cells 1+ 04/22/18 05:04 Bite Cells Not Reportable 04/22/18 05:04 Crenated Cell Not Reportable 04/22/18 05:04 Elliptocytes Few 04/22/18 05:04 Acanthocytes (Spur) Not Reportable 04/22/18 05:04 Rouleaux Not Reportable 04/22/18 05:04 Hemoglobin C Crystals Not Reportable 04/22/18 05:04 Schistocytes Not Reportable 04/22/18 05:04 Malaria parasites Not Reportable 04/22/18 05:04 [place]irk Bodies Not Reportable 04/22/18 05:04 Hem Pathologist Commnt No 04/22/18 05:04 Sodium 140 mmol/L (137-145) 04/22/18 05:47 Potassium 3.7 mmol/L (3.6-5.0) D 04/22/18 05:47 Chloride 106.5 mmol/L (98-107) 04/22/18 05:47 Carbon Dioxide 23 mmol/L (22-30) 04/22/18 05:47 Anion Gap 14 mmol/L 04/22/18 05:47 BUN 22 mg/dL (9-20) H 04/22/18 05:47 Creatinine 0.6 mg/dL (0.8-1.5) L 04/22/18 05:47 Estimated GFR > 60 ml/min 04/22/18 05:47 BUN/Creatinine Ratio 37 % 04/22/18 05:47 Glucose 159 mg/dL (75-100) H 04/22/18 05:47 Hemoglobin A1c 6.6 % (4-6) H 04/21/18 10:55 Lactic Acid 2.00 mmol/L (0.7-2.0) 04/22/18 07:41 Calcium 8.2 mg/dL (8.4-10.2) L 04/22/18 05:47 Total Bilirubin < 0.20 mg/dL (0.1-1.2) 04/22/18 05:47 AST 15 units/L (5-40) 04/22/18 05:47 ALT 15 units/L (7-56) 04/22/18 05:47 Alkaline Phosphatase 72 units/L (35-129) 04/22/18 05:47 Troponin T < 0.010 ng/mL (0.00-0.029) 04/20/18 14:23 Total Protein 5.1 g/dL (6.3-8.2) L 04/22/18 05:47 Albumin 2.7 g/dL (3.9-5) L 04/22/18 05:47 Albumin/Globulin Ratio 1.1 % 04/22/18 05:47 Nutrition/Malnutrition Assess - Dietary Evaluation Nutrition/Malnutrition Findings: Nutrition Notes Start: 04/21/18 17:56 Freq: Status: Active Protocol: Document 04/21/18 17:56 RM (Rec: 04/21/18 18:05 RM [id number]) Nutrition Notes Need for Assessment generated from: [facility] Initial or Follow up Assessment Current Diagnosis COPD Sepsis Other Pertinent Diagnosis Depression,R lower lobe Pneu Current Diet Regular Labs/Tests Reviewed Pertinent Medications Reviewed Height 5 ft 6 in Weight 42 kg Usual Body Weight 50 kg [place] Body Weight (lbs) 142.0 BMI 14.9 Subjective/Other Information Pt screened for malnutrition and low BMI. Pt stated that he had not eaten for the past couple days d/t pain. Admitted to nausea. Admitted to chewing difficulty d/t lack of teeth. Stated UBW was 110 lbs years ago. Noted temporal wasting. Percent of energy/protein needs met: 0%/0% Burn Absent Trauma Absent #1 Nutrition Diagnosis Inadequate oral intake Etiology pain, difficulty chewing As Evidenced by Signs and Symptoms pt statement that he had not eaten for the past couple days Is patient on ventilator? No Is Patient Ambulatory and/or Out of Bed Yes REE-([place]-ambulatory/OOB) [ 1511.575 NUTR.[id number]] Kcal/Kg value to use for calculation 43 Approximate Energy Requirements Using 1806 kcal/Kg Calculation Used for Recommendations Kcal/kg Additional Notes Protein Needs: 63-71g (1.5-1. 7g/kg) Fluid Needs: 1 ml/kcal Nutrition Intervention Change Diet Order: [facility] soft w/ground meat Add Supplement/Snack (indicate name/kcal Ensure Clear [place] 1 /protein ) daily Provides kCal: 240 Provides Protein (gm) 8 Goal #1 Meet at least 75% of calorie and protein needs via PO and ONS intakes Anticipated Discharge Needs: Regular diet Follow-Up By: 04/24/18 Additional Comments Follow for PO and ONS intakes
[2018-04-22] MEDS: DUONEB *Not for PRN Use IH SCH ×3 (08:57→20:23)
[2018-04-22] MEDS ORDERED: BENADRYL PO PRN (09:30)
[2018-04-22] MEDS ORDERED: DILAUDID IV PRN (09:34)
[2018-04-22] MEDS: PERCOCET 5/325 PO PRN (10:16)
[2018-04-22] MEDS: HABITROL TD SCH (10:16)
[2018-04-22] MEDS: LEVAQUIN 750MG/150ML 750 MG/150 ML BAG IV SCH (10:19)
[2018-04-22] MEDS: SODIUM CHLORIDE FLUSH SYRINGE 10 ML IV SCH ×2 (12:38→22:33)
[2018-04-22] MEDS: TESSALON PERLES PO SCH ×2 (13:29→22:31)
[2018-04-22] MEDS: LOVENOX SUB-Q SCH (22:32)
[2018-04-22] MEDS: AMBIEN PO PRN (22:32)
[2018-04-23 05:53] LABS: Hematocrit 38.4 % (35.5-45.6); Hemoglobin 13.1 gm/dl (11.8-15.2); Mean Corpuscular HGB Conc 34 % (32-34); Mean Corpuscular Volume 91 fl (84-94); Platelet Count 268 K/mm3 (140-440); Red Blood Count 4.23 M/mm3 (3.65-5.03); Red Cell Distribution Width 14.8 % (13.2-15.2)
[2018-04-23] MEDS: VANCOMYCIN 750 MG in NACL 0.9% 250ML 250 ML IV SCH ×2 (05:55→18:14)
[2018-04-23] MEDS: TESSALON PERLES PO SCH ×3 (05:55→21:04)
[2018-04-23] MEDS: SODIUM CHLORIDE FLUSH SYRINGE 10 ML IV PRN (05:57)
[2018-04-23 06:09] LABS: BUN/Creatinine Ratio 25; Blood Urea Nitrogen 20 mg/dL (9-20); Calcium 8.4 mg/dL (8.4-10.2); Hemolysis Index 8
[2018-04-23 06:28] LABS: Basophils % (Manual) 0 % (0.0-1.8); Eosinophils % (Manual) 0 % (0.0-4.3); Total Cells Counted 100
[2018-04-23 06:29] LABS: Anisocytosis 1+; Burr Cells 1+; Ovalocytes 1+; Target Cells Rare
[2018-04-23 06:30] LABS: Platelet Estimate Consistent w Auto
[2018-04-23] MEDS: DUONEB *Not for PRN Use IH SCH ×3 (08:00→20:40)
--- NOTE | 2018-04-23 08:02 | Progress Note ---
Assessment and Plan Assessment and plan: 62-year-old male patient with significant history of COPD and ongoing tobacco use was admitted with acute respiratory distress, right-sided pneumonia and COPD exacerbation --Positive MRSA nasal swab; isolation per protocol, Mupirocin local oint 2-3 times a day for 5 days --Lactic acidosis; secondary to sepsis due to pneumonia and acute bronchitis --Sepsis; leukocytosis secondary to pneumonia --Right-sided pneumonia probably community-acquired; Cultures negative to date, IV antibiotics, supportive care, follow-up chest x- ray ill-defined infiltrate/atelectasis --Acute hypoxic respiratory failure; improvement Secondary to COPD exacerbation and right-sided pneumonia Oxygen titrated HAS to more than 90%, nebulizers, IV steroids, IV antibiotics --Acute exacerbation of COPD; oxygen titrated O2 sats more than 90% Nebulizers . Taper IV steroids , inhalation steroids, antibiotics --Ongoing tobacco use; smoking cessation counseling, nicotine patch as needed --Severe malnutrition; nutrition supplements, supportive care --DVT prophylaxis; Lovenox Closely monitor the patient and adjust the management as needed Possible discharge in 1-2 days if stable History Interval history: Patient seen and examined medical records reviewed No new events reported by the nursing Patient continues to have mild cough Alert awake oriented 3 Hospitalist Physical - Constitutional Vitals: Temp Pulse Resp BP Pulse Ox 97.7 F 89 20 111/79 96 04/23/18 04:23 04/23/18 04:23 04/23/18 04:23 04/23/18 04:23 04/23/18 04:23 General appearance: Present: no acute distress, well-nourished - EENT Eyes: Present: PERRL, EOM intact - Neck Neck: Present: supple, normal ROM - Respiratory Respiratory effort: normal Respiratory: bilateral: diminished, rhonchi, negative: rales, wheezing - Cardiovascular Rhythm: regular Heart Sounds: Present: S1 & S2 - Extremities Extremities: no ischemia, No edema - Abdominal General gastrointestinal: soft, non-tender, non-distended - Integumentary Integumentary: Present: clear, warm - Psychiatric Psychiatric: appropriate mood/affect, cooperative - Neurologic Neurologic: CNII-XII intact, moves all extremities Results - Labs CBC & Chem 7: 04/23/18 05:30 04/23/18 05:30 Labs: Laboratory Last Values WBC 17.2 K/mm3 (4.5-11.0) H 04/23/18 05:30 RBC 4.23 M/mm3 (3.65-5.03) 04/23/18 05:30 Hgb 13.1 gm/dl (11.8-15.2) 04/23/18 05:30 Hct 38.4 % (35.5-45.6) 04/23/18 05:30 MCV 91 fl (84-94) 04/23/18 05:30 MCH 31 pg (28-32) 04/23/18 05:30 MCHC 34 % (32-34) 04/23/18 05:30 RDW 14.8 % (13.2-15.2) 04/23/18 05:30 Plt Count 268 K/mm3 (140-440) 04/23/18 05:30 Lymph % (Auto) 4.5 % (13.4-35.0) L 04/20/18 14:23 Crisp % (Auto) 8.3 % (0.0-7.3) H 04/20/18 14:23 Eos % (Auto) 0.0 % (0.0-4.3) 04/20/18 14:23 Baso % (Auto) 0.3 % (0.0-1.8) 04/20/18 14:23 Lymph # 0.8 K/mm3 (1.2-5.4) L 04/20/18 14:23 Crisp # 1.5 K/mm3 (0.0-0.8) H 04/20/18 14:23 Eos # 0.0 K/mm3 (0.0-0.4) 04/20/18 14:23 Baso # 0.1 K/mm3 (0.0-0.1) 04/20/18 14:23 Add Manual Diff Complete 04/23/18 05:30 Total Counted 100 04/23/18 05:30 Seg Neutrophils % Mine Equipment Design Engineer 04/23/18 05:30 Seg Neuts % (Manual) 91.0 % (40.0-70.0) H 04/23/18 05:30 Band Neutrophils % 6.0 % 04/23/18 05:30 Lymphocytes % (Manual) 0 % (13.4-35.0) L 04/23/18 05:30 Reactive Lymphs % (Man) 1.0 % 04/23/18 05:30 Monocytes % (Manual) 2.0 % (0.0-7.3) 04/23/18 05:30 Eosinophils % (Manual) 0 % (0.0-4.3) 04/23/18 05:30 Basophils % (Manual) 0 % (0.0-1.8) 04/23/18 05:30 Metamyelocytes % 0 % 04/23/18 05:30 Myelocytes % 0 % 04/23/18 05:30 Promyelocytes % 0 % 04/23/18 05:30 Blast Cells % 0 % 04/23/18 05:30 Nucleated RBC % Not Reportable 04/23/18 05:30 Seg Neutrophils # 15.9 K/mm3 (1.8-7.7) H 04/20/18 14:23 Seg Neutrophils # Man 15.7 K/mm3 (1.8-7.7) H 04/23/18 05:30 Band Neutrophils # 1.0 K/mm3 04/23/18 05:30 Lymphocytes # (Manual) 0.0 K/mm3 (1.2-5.4) L 04/23/18 05:30 Abs React Lymphs (Man) 0.2 K/mm3 04/23/18 05:30 Monocytes # (Manual) 0.3 K/mm3 (0.0-0.8) 04/23/18 05:30 Eosinophils # (Manual) 0.0 K/mm3 (0.0-0.4) 04/23/18 05:30 Basophils # (Manual) 0.0 K/mm3 (0.0-0.1) 04/23/18 05:30 Metamyelocytes # 0.0 K/mm3 04/23/18 05:30 Myelocytes # 0.0 K/mm3 04/23/18 05:30 Promyelocytes # 0.0 K/mm3 04/23/18 05:30 Blast Cells # 0.0 K/mm3 04/23/18 05:30 WBC Morphology Not Reportable 04/23/18 05:30 Hypersegmented Neuts Not Reportable 04/23/18 05:30 Hyposegmented Neuts Not Reportable 04/23/18 05:30 Hypogranular Neuts Not Reportable 04/23/18 05:30 Smudge Cells Not Reportable 04/23/18 05:30 Toxic Granulation Not Reportable 04/23/18 05:30 Toxic Vacuolation Not Reportable 04/23/18 05:30 Dohle Bodies Not Reportable 04/23/18 05:30 Pelger-Huet Anomaly Not Reportable 04/23/18 05:30 Sheryl Rods Not Reportable 04/23/18 05:30 Platelet Estimate Consistent w auto 04/23/18 05:30 Clumped Platelets Not Reportable 04/23/18 05:30 Plt Clumps, EDTA Not Reportable 04/23/18 05:30 Large Platelets Not Reportable 04/23/18 05:30 Giant Platelets Not Reportable 04/23/18 05:30 Platelet Satelliting Not Reportable 04/23/18 05:30 Plt Morphology Comment Not Reportable 04/23/18 05:30 RBC Morphology Not Reportable 04/23/18 05:30 Dimorphic RBCs Not Reportable 04/23/18 05:30 Polychromasia Rare 04/23/18 05:30 Hypochromasia Not Reportable 04/23/18 05:30 Poikilocytosis Not Reportable 04/23/18 05:30 Anisocytosis 1+ 04/23/18 05:30 Microcytosis Not Reportable 04/23/18 05:30 Macrocytosis Not Reportable 04/23/18 05:30 Spherocytes Not Reportable 04/23/18 05:30 Pappenheimer Bodies Not Reportable 04/23/18 05:30 Sickle Cells Not Reportable 04/23/18 05:30 Target Cells Rare 04/23/18 05:30 Tear Drop Cells Not Reportable 04/23/18 05:30 Ovalocytes 1+ 04/23/18 05:30 Helmet Cells Not Reportable 04/23/18 05:30 [place] Bodies Not Reportable 04/23/18 05:30 [place] Rings Not Reportable 04/23/18 05:30 [place] Cells 1+ 04/23/18 05:30 Bite Cells Not Reportable 04/23/18 05:30 Crenated Cell Not Reportable 04/23/18 05:30 Elliptocytes Few 04/23/18 05:30 Acanthocytes (Spur) Not Reportable 04/23/18 05:30 Rouleaux Not Reportable 04/23/18 05:30 Hemoglobin C Crystals Not Reportable 04/23/18 05:30 Schistocytes Not Reportable 04/23/18 05:30 Malaria parasites Not Reportable 04/23/18 05:30 Dirk Bodies Not Reportable 04/23/18 05:30 Hem Pathologist Commnt No 04/23/18 05:30 Sodium 143 mmol/L (137-145) 04/23/18 05:30 Potassium 3.9 mmol/L (3.6-5.0) 04/23/18 05:30 Chloride 107.9 mmol/L (98-107) H 04/23/18 05:30 Carbon Dioxide 21 mmol/L (22-30) L 04/23/18 05:30 Anion Gap 18 mmol/L 04/23/18 05:30 BUN 20 mg/dL (9-20) 04/23/18 05:30 Creatinine 0.8 mg/dL (0.8-1.5) 04/23/18 05:30 Estimated GFR > 60 ml/min 04/23/18 05:30 BUN/Creatinine Ratio 25 % 04/23/18 05:30 Glucose 173 mg/dL (75-100) H 04/23/18 05:30 Hemoglobin A1c 6.6 % (4-6) H 04/21/18 10:55 Lactic Acid 3.10 mmol/L (0.7-2.0) H* 04/22/18 09:58 Calcium 8.4 mg/dL (8.4-10.2) 04/23/18 05:30 Total Bilirubin < 0.20 mg/dL (0.1-1.2) 04/22/18 05:47 AST 15 units/L (5-40) 04/22/18 05:47 ALT 15 units/L (7-56) 04/22/18 05:47 Alkaline Phosphatase 72 units/L (35-129) 04/22/18 05:47 Troponin T < 0.010 ng/mL (0.00-0.029) 04/20/18 14:23 Total Protein 5.1 g/dL (6.3-8.2) L 04/22/18 05:47 Albumin 2.7 g/dL (3.9-5) L 04/22/18 05:47 Albumin/Globulin Ratio 1.1 % 04/22/18 05:47 Nutrition/Malnutrition Assess - Dietary Evaluation Nutrition/Malnutrition Findings: Nutrition Notes Start: 04/21/18 17:56 Freq: Status: Active Protocol: Document 04/21/18 17:56 RM (Rec: 04/21/18 18:05 RM [id number]) Nutrition Notes Need for Assessment generated from: [facility] Initial or Follow up Assessment Current Diagnosis COPD Sepsis Other Pertinent Diagnosis Depression,R lower lobe Pneu Current Diet Regular Labs/Tests Reviewed Pertinent Medications Reviewed Height 5 ft 6 in Weight 42 kg Usual Body Weight 50 kg [place] Body Weight (lbs) 142.0 BMI 14.9 Subjective/Other Information Pt screened for malnutrition and low BMI. Pt stated that he had not eaten for the past couple days d/t pain. Admitted to nausea. Admitted to chewing difficulty d/t lack of teeth. Stated UBW was 110 lbs years ago. Noted temporal wasting. Percent of energy/protein needs met: 0%/0% Burn Absent Trauma Absent #1 Nutrition Diagnosis Inadequate oral intake Etiology pain, difficulty chewing As Evidenced by Signs and Symptoms pt statement that he had not eaten for the past couple days Is patient on ventilator? No Is Patient Ambulatory and/or Out of Bed Yes [facility]OOB) [ 1511.575 NUTR.MSJOOB] Kcal/Kg value to use for calculation 43 Approximate Energy Requirements Using 1806 kcal/Kg Calculation Used for Recommendations Kcal/kg Additional Notes Protein Needs: 63-71g (1.5-1. 7g/kg) Fluid Needs: 1 ml/kcal Nutrition Intervention Change Diet Order: [facility] soft w/ground meat Add Supplement/Snack (indicate name/kcal Ensure Clear [place] 1 /protein ) daily Provides kCal: 240 Provides Protein (gm) 8 Goal #1 Meet at least 75% of calorie and protein needs via PO and ONS intakes Anticipated Discharge Needs: Regular diet Follow-Up By: 04/24/18 Additional Comments Follow for PO and ONS intakes
--- NOTE | 2018-04-23 09:06 | XRay Report ---
FINAL REPORT EXAM: XR CHEST 1V AP HISTORY: f/u Pneumonia TECHNIQUE: Frontal chest x-ray. PRIORS: Chest x-ray July 01, 2017. FINDINGS: Cardiac silhouette is within normal limits. Aortic calcifications. Focal ill-defined opacity in the right lateral midlung and lower lobe. No pneumothorax or effusion. L eft lung is clear. COPD. Mild scarring both upper lobes. There are no suspicious osseous lesions. IMPRESSION: COPD. Ill-defined infiltrate in the right lung base. Differential diagnosis would include subsegmental atel ectasis.
[2018-04-23] MEDS: LEVAQUIN 750MG/150ML 750 MG/150 ML BAG IV SCH (10:53)
[2018-04-23] MEDS: HABITROL TD SCH (10:53)
[2018-04-23] MEDS: SOLU-Medrol IV SCH ×2 (10:53→21:04)
[2018-04-23] MEDS: SODIUM CHLORIDE FLUSH SYRINGE 10 ML IV SCH ×2 (10:53→21:05)
[2018-04-23] MEDS ORDERED: VASELINE LIP THERAPY TP PRN (20:20)
[2018-04-23] MEDS: BACTROBAN 2% NS SCH (21:04)
[2018-04-23] MEDS: LOVENOX SUB-Q SCH (21:05)
[2018-04-23] MEDS: AMBIEN PO PRN (21:09)
[2018-04-24] MEDS: VANCOMYCIN 750 MG in NACL 0.9% 250ML 250 ML IV SCH (05:00)
[2018-04-24] MEDS: TESSALON PERLES PO SCH ×2 (05:00→15:35)
[2018-04-24 05:48] LABS: Hematocrit 39.6 % (35.5-45.6); Hemoglobin 13.4 gm/dl (11.8-15.2); Mean Corpuscular HGB Conc 34 % (32-34); Mean Corpuscular Volume 92 fl (84-94); Platelet Count 257 K/mm3 (140-440); Red Blood Count 4.32 M/mm3 (3.65-5.03); Red Cell Distribution Width 14.8 % (13.2-15.2)
[2018-04-24 06:13] LABS: BUN/Creatinine Ratio 33; Blood Urea Nitrogen 20 mg/dL (9-20); Calcium 8.3 mg/dL (8.4-10.2); Hemolysis Index 5
[2018-04-24] MEDS: DUONEB *Not for PRN Use IH SCH ×2 (07:49→14:16)
[2018-04-24] MEDS: LEVAQUIN 750MG/150ML 750 MG/150 ML BAG IV SCH (10:56)
[2018-04-24] MEDS: SOLU-Medrol IV SCH (10:56)
[2018-04-24] MEDS: HABITROL TD SCH (10:56)
[2018-04-24] MEDS: BACTROBAN 2% NS SCH (10:56)
[2018-04-24] MEDS: SODIUM CHLORIDE FLUSH SYRINGE 10 ML IV SCH (10:56)
[2018-04-24] MEDS ORDERED: LEVAQUIN PO SCH (11:00)
[2018-04-24 13:51] LABS: Band Neutrophils # (Manual) 1.9 K/mm3; Basophils % (Manual) 0 % (0.0-1.8); Eosinophils % (Manual) 0 % (0.0-4.3); Total Cells Counted 100
[2018-04-24 13:52] LABS: Anisocytosis 1+
[2018-04-24 13:53] LABS: Poikilocytosis Rare
--- NOTE | 2018-04-24 14:44 | Discharge Summary ---
Providers - Providers Date of Admission: 04/20/18 15:48 Date of discharge: 04/24/18 Attending physician: DARIO QUACH Primary care physician: COVERAGE SPECIALIST RN Hospitalization Reason for admission: worsening shortness of breath/pneumonia Condition: Stable Pertinent studies: Chest x-ray; right lung infiltrate, severe emphysema Follow-up chest x-ray; 04/23/2018; ill-defined infiltrate, possible atelectasis Hospital course: 62-year-old male patient with significant history of COPD and ongoing tobacco use was admitted with acute respiratory distress, right-sided pneumonia and COPD exacerbation.Patient was managed with IV antibiotics, nebulizers, IV steroids, oxygen and supportive care Follow-up chest x-ray showed mild improvement of pneumonia, patient also had positive MRSA nasal swab. Managed with the topical mupirocin Smoking cessation counseling done advised nicotine patch, Today patient is comfortable no new complaints Vital signs reviewed, physical examination no new changes Hemodynamically and clinically stable at discharge Discharge Diagnosis: --Lactic acidosis; secondary to sepsis due to pneumonia and acute bronchitis --Sepsis; leukocytosis secondary to pneumonia --Right-sided pneumonia probably community-acquired; received 5 days of IV antibiotics DC on oral doxycycline --Acute hypoxic respiratory failure; improvement --Acute exacerbation of COPD; oxygen titrated O2 sats more than 90% --Ongoing tobacco use; smoking cessation counseling, nicotine patch as needed --Severe malnutrition; nutrition supplements, supportive care --Positive MRSA nasal swab; isolation per protocol, Mupirocin local oint 2-3 times a day for 5 days Disposition: [place]-01 TO HOME OR SELFCARE Time spent for discharge: 32 min Core Measure Documentation - Palliative Care Palliative Care/ Comfort Measures: Not Applicable - Core Measures Any of the following diagnoses?: none Exam - Constitutional Vitals: Temp Pulse Resp BP Pulse Ox 97.7 F 78 20 102/73 96 04/24/18 05:37 04/24/18 14:27 04/24/18 14:27 04/24/18 08:16 04/24/18 08:16 General appearance: Present: no acute distress, well-nourished - EENT Eyes: Present: PERRL, EOM intact - Neck Neck: Present: supple, normal ROM - Respiratory Respiratory effort: normal Respiratory: bilateral: diminished, negative: rales, rhonchi, wheezing - Cardiovascular Rhythm: regular Heart Sounds: Present: S1 & S2 - Extremities Extremities: no ischemia, No edema - Abdominal General gastrointestinal: Present: soft, non-tender, non-distended, normal bowel sounds - Integumentary Integumentary: Present: clear, warm - Musculoskeletal Musculoskeletal: strength equal bilaterally - Psychiatric Psychiatric: appropriate mood/affect, cooperative - Neurologic Neurologic: CNII-XII intact, moves all extremities Plan Activity: advance as tolerated, fall precautions Diet: regular Special Instructions: smoking cessation Additional Instructions: Advice Smoking cessation, nicotine patch as needed Follow up with: PRIMARY CARE,MD [Primary Care Provider] - 7 Days Prescriptions: Benzonatate [Tessalon Perles] 100 mg PO Q8HR #15 capsule diphenhydrAMINE [Benadryl CAP] 25 mg PO Q8H PRN #15 capsule PRN Reason: Itching Doxycycline [Vibramycin CAP] 100 mg PO Q12HR #20 capsule Mupirocin [Bactroban 2% OINT] 1 applic NS BID 5 Days #1 tube Nicotine [Habitrol] 14 mg TD QDAY #30 patch
[2018-04-24 16:43] VITALS: BP 124/87
== END 2018-04-24 16:00 | disposition home or self-care (01) | DRG 871 ==
LOC: ED 13:56 → 4A 15:48
PROVIDERS: ADMIT Internal Medicine; ATTEND Internal Medicine
DX: A41.9 Sepsis, unspecified organism (principal); J96.01 Acute respiratory failure with hypoxia; E43 Unspecified severe protein-calorie malnutrition; J18.1 Lobar pneumonia, unspecified organism; J44.0 Chronic obstructive pulmonary disease with (acute) lower respiratory infection; J44.1 Chronic obstructive pulmonary disease with (acute) exacerbation; Z68.1 Body mass index [BMI] 19.9 or less, adult; E87.1 Hypo-osmolality and hyponatremia; J20.9 Acute bronchitis, unspecified; F17.200 Nicotine dependence, unspecified, uncomplicated; F32.9 Major depressive disorder, single episode, unspecified; F14.90 Cocaine use, unspecified, uncomplicated; Z79.899 Other long term (current) drug therapy; Z71.6 Tobacco abuse counseling; Z88.0 Allergy status to penicillin; Z82.49 Family history of ischemic heart disease and other diseases of the circulatory system
CPT/HCPCS: 36415; 71045; 80048; 80053; 80202; 82140; 83036; 84484; 85007; 85025; 87040; 87116; 93005; 93010; 94640; 94644; 99406; G0378; J1650; J1956; J2270; J2405; J2920; J2930; J3370; J7030; J7050

== ENCOUNTER 2018-05-02 09:41 | Outpatient (CLI) | payer OTHER ==
[2018-05-02] MEDS ORDERED: PROVENTIL IH ONE (10:19)
--- NOTE | 2018-05-02 11:12 | XRay Report ---
RIGHT SHOULDER, 3 VIEWS: HISTORY: right shoulder pain. Normal bone mineralization. No acute osseous injury or joint pathology is detected. The soft tissues are unremarkable. IMPRESSION: Right shoulder within normal limits.
--- NOTE | 2018-05-02 11:13 | XRay Report ---
AP AND LATERAL LUMBOSACRAL SPINE: History: Low back pain There is borderline bone mineralization. No evidence for compression deformity, subluxation or bone lesion minimal degenerative disc disease and facet arthropathy are noted at all levels. The sacrum and SI joints are unremarkable. IMPRESSION: Osteopenia. Minimal lumbar spondylosis. No acute process identified on x-ray.
== END 2018-05-02 09:42 | disposition home or self-care (01) ==
LOC: PF 09:41
PROVIDERS: ATTEND Internal Medicine
DX: M85.88 Other specified disorders of bone density and structure, other site (principal); M25.511 Pain in right shoulder; J44.9 Chronic obstructive pulmonary disease, unspecified
CPT/HCPCS: 72100; 94060; 94640

== ENCOUNTER 2018-05-28 11:32 | Emergency (ER) | payer OTHER ==
[2018-05-28 11:38] VITALS: BP 127/78
--- NOTE | 2018-05-28 11:50 | Emergency Department Report ---
Blank Doc - Documentation Documentation: This is a 62-year-old male that presents with SOB with right sided chest pain. Patient also has URI symptoms. Denies any radiation of CP. Stated has pain with palpation and worse with cough. No HX of cardiac or PE/DVT. This initial assessment diagnostic orders/clinical plan/treatment(s) is/are subject to change based on patient's health status, clinical progression and re- assessment by fellow clinical providers in the ED. Further treatment and workup at subsequent clinical providers discretion. Patient/guardians urged not to elope from ED s their condition may be serious if not clinically assessed and managed. Initial orders include: 1-Patient sent to [facility] for further evaluation and treatment 2- Labs 3- EKG 4- CXR
--- NOTE | 2018-05-28 13:14 | XRay Report ---
FINAL REPORT EXAM: XR CHEST ROUTINE 2V HISTORY: Dyspnea TECHNIQUE: Frontal and lateral views of the chest. PRIORS: Chest x-ray April 23, 2018. FINDINGS: Cardiac silhouette is within normal limits. Aortic calcifications. COPD. Scarring in both upper and right mid lungs are stable. No pneumothorax. No consolidation. No ef fusion. There are no suspicious osseous lesions. IMPRESSION: COPD with chronic interstitial changes.
--- NOTE | 2018-05-28 13:21 | Emergency Department Report ---
Minor Respiratory - HPI Chief Complaint: Dyspnea/Respdistress Stated Complaint: CHEST PAIN/PATEL Time Seen by Provider: 05/28/18 11:49 Duration: 1 week Pain Location: Chest (right upper chest; hurts worse when he touches it) Severity: moderate Minor Respiratory: Yes Rhinorrhea, Yes Able to Tolerate Fluids, Yes Cough (ductile yellow sputum), Yes Chest Pain, Yes Shortness of Breath, No Sore Throat, No Ear Pain, No Sick Contacts, No Hemoptysis, No Fever ED Review of Systems ROS: Stated complaint: CHEST PAIN/PATEL Other details as noted in HPI Comment: All other systems reviewed and negative ED Past Medical Hx - Past Medical History Previous Medical History?: Yes Hx Hypertension: Yes Hx Heart Attack/AMI: No Hx Congestive Heart Failure: No Hx Diabetes: No Hx Deep Vein Thrombosis: No Hx Pulmonary Embolism: No Hx Arthritis: Yes Hx Psychiatric Treatment: Yes (DEPRESSION, cocaine abuse) Hx Asthma: No Hx COPD: Yes Hx Tuberculosis: No - Surgical History Past Surgical History?: Yes Hx Coronary Stent: No Hx Pacemaker: No Hx Internal Defibrillator: No Additional Surgical History: bladder - as a child - Social History Smoking Status: Current Some Day Smoker Substance Use Type: Cocaine - Medications Home Medications: Home Medications Medication Instructions Recorded Confirmed Last Taken Type Benzonatate [Tessalon Perles] 100 mg PO Q8HR #15 capsule 04/24/18 Unknown Rx Doxycycline [Vibramycin CAP] 100 mg PO Q12HR #20 capsule 04/24/18 Unknown Rx Mupirocin [Bactroban 2% OINT] 1 applic NS BID 5 Days #1 tube 04/24/18 Unknown Rx Nicotine [Habitrol] 14 mg TD QDAY #30 patch 04/24/18 Unknown Rx diphenhydrAMINE [Benadryl CAP] 25 mg PO Q8H PRN #15 capsule 04/24/18 Unknown Rx ALBUTEROL Inhaler (OR & NICU) 2 puff IH QID PRN #1 inhalation 05/28/18 Unknown Rx [ProAir HFA Inhaler] HYDROcodone/APAP 5-325 [[place] 1 each PO Q4HR PRN #12 tablet 05/28/18 Unknown Rx 5/325] levoFLOXacin [Levaquin TAB] 500 mg PO QDAY #7 tablet 05/28/18 Unknown Rx predniSONE [Deltasone] 20 mg PO QDAY #5 tab 05/28/18 Unknown Rx Minor Respiratory Exam - Exam General: Vital signs noted. No distress. Alert and acting appropriately. HEENT: Yes Moist Mucous Membranes, No Pharyngeal Erythema, No Pharyngeal Ex udates, No Rhinorrhea, No Conjuctival Injection, No Frontal Tenderness, No Maxillary Tenderness Ear: Neither TM Bulge, Neither TM Erythema, Neither EAC Pain, Neither EAC Disch arge Neck: Yes Supple, No Adenopathy Lungs: Yes Good Air Exchange, Yes Cough, No Wheezes, No Ronchi, No Stridor, No Labored Respirations, No Retractions, No Use of Accessory Muscles, No Other Abnormal Lung Sounds Heart: Yes Regular, No Murmur Abdomen: Yes Normal Bowel Sounds, No Tenderness, No Peritoneal Signs Skin: No Rash, No Edema Neurologic: Alert and oriented, no deficits. Musculoskeletal: Unremarkable. ED Course Vital Signs 05/28/18 11:37 Temperature 98.1 F Pulse Rate 93 H Respiratory 18 Rate Blood Pressure 127/78 [Right] O2 Sat by Pulse 97 Oximetry ED Medical Decision Making - Radiology Data Chest x-ray shows COPD changes with interstitial scarring there are no acute infiltrate seen - Medical Decision Making Patient to be started on Levaquin because of his COPD history. Patient with an acute bronchitis and will be given symptomatic relief. Critical care attestation.: If time is entered above; I have spent that time in minutes in the direct care of this critically ill patient, excluding procedure time. ED Disposition Clinical Impression: SOB (shortness of breath) Acute bronchitis Qualifiers: Bronchitis organism: unspecified organism Qualified Code(s): J20.9 - Acute bronchitis, unspecified Disposition: DC- TO HOME OR SELFCARE Is pt being admited?: No Does the pt Need Aspirin: No Condition: Stable Instructions: Acute Bronchitis (ED), Chronic Obstructive Pulmonary Disease (ED) Referrals: DEBORAH ALTAMIRANO MD [Primary Care Provider] - 3-5 Days Time of Disposition: 13:21
== END 2018-05-28 13:35 | disposition home or self-care (01) ==
LOC: ED 11:32
DX: J20.9 Acute bronchitis, unspecified (principal); I10 Essential (primary) hypertension; M19.90 Unspecified osteoarthritis, unspecified site; F32.9 Major depressive disorder, single episode, unspecified; J44.9 Chronic obstructive pulmonary disease, unspecified; F17.200 Nicotine dependence, unspecified, uncomplicated; Z88.0 Allergy status to penicillin
CPT/HCPCS: 71046; 93005; 93010; 99283

== ENCOUNTER 2018-08-21 11:41 | Emergency (ER) | payer MEDICAID ==
--- NOTE | 2018-08-21 12:01 | Emergency Department Report ---
Blank Doc - Documentation Documentation: this is a 63-year-old male that presents with chest pain and SOB. Also has a dry cough and is worst with cough. This initial assessment/diagnostic orders/clinical plan/treatment(s) is/are subject to change based on patient's health status, clinical progression and re-assessment by fellow clinical providers in the ED. Further treatment and workup at subsequent clinical providers discretion. Patient/guardians urged not to elope from the ED as their condition may be serious if not clinically assessed and managed. Initial orders include: 1- Patient sent to MAIN ED for further evaluation and treatment 2- ekg 3- labs 4- CXR
[2018-08-21 12:03] VITALS: BP 137/106
[2018-08-21] MEDS ORDERED: MORPHINE IV ONE (13:28)
[2018-08-21] MEDS ORDERED: PROVENTIL IH ONE (13:28)
[2018-08-21] MEDS ORDERED: ATROVENT IH ONE (13:28)
[2018-08-21] MEDS ORDERED: DECADRON IV ONE (13:28)
--- NOTE | 2018-08-21 13:54 | XRay Report ---
CHEST TWO VIEWS: 08/21/18 13:16 CLINICAL: Chest pain. COMPARISON: 05/28/18 FINDINGS: Normal heart and pulmonary vasculature. The lungs are hyperexpanded and hyperlucent. No airspace disease or pleural effusion.Mild scoliosis of the thoracic spine. No suspicious bone lesion. Normal soft tissues. IMPRESSION: COPD and no acute cardiopulmonary process.
[2018-08-21 14:21] LABS: Basophils # (Auto) 0.1 K/mm3 (0.0-0.1); Basophils % (Auto) 0.8 % (0.0-1.8); Eosinophils # (Auto) 0.2 K/mm3 (0.0-0.4); Hematocrit 46.1 % (35.5-45.6); Hemoglobin 16.3 gm/dl (11.8-15.2); Lymphocytes # (Auto) 1.4 K/mm3 (1.2-5.4); Mean Corpuscular HGB Conc 35 % (32-34); Mean Corpuscular Volume 91 fl (84-94); Monocytes # (Auto) 1.3 K/mm3 (0.0-0.8); Monocytes % (Auto) 12.9 % (0.0-7.3); Platelet Count 173 K/mm3 (140-440); Red Blood Count 5.08 M/mm3 (3.65-5.03); Red Cell Distribution Width 14.7 % (13.2-15.2)
[2018-08-21 14:25] LABS: INR 0.99 (0.87-1.13)
[2018-08-21 14:26] LABS: Partial Thromboplastin Time 34.8 Sec. (24.2-36.6)
[2018-08-21 14:37] LABS: Albumin 3.7 g/dL (3.9-5); BUN/Creatinine Ratio 15; Blood Urea Nitrogen 12 mg/dL (9-20); Calcium 8.7 mg/dL (8.4-10.2); Hemolysis Index 124
[2018-08-21 14:54] LABS: Alanine Aminotransferase 8 units/L (7-56)
--- NOTE | 2018-08-21 15:04 | Emergency Department Report ---
ED Shortness of Breath HPI - General Chief Complaint: Dyspnea/Respdistress Stated Complaint: RT SIDE CHEST PAIN/SOB Time Seen by Provider: 08/21/18 12:00 Source: patient Mode of arrival: Ambulatory Limitations: No Limitations - History of Present Illness MD Complaint: shortness of breath, cough, pain with inspiration (right sided only) -: days(s) (3) Severity: moderate Pain Scale: 7 Quality: sharp, stabbing Consistency: constant Improves With: nothing Worsens With: exertion, movement, coughing, inspiration Known History Of: COPD, other (has not been on meds. 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) Associated Symptoms: chest pain, pain with inspiration, cough, sputum production Treatments Prior to Arrival: other (pt has a neb machine but no medications) - Related Data Previous Rx's Medication Instructions Recorded Last Taken Type Benzonatate [Tessalon Perles] 100 mg PO Q8HR #15 capsule 04/24/18 Unknown Rx DOXYCYCLINE Hyclate [Vibramycin 100 mg PO Q12HR #20 capsule 04/24/18 Unknown Rx CAP] Mupirocin [Bactroban 2% OINT] 1 applic NS BID 5 Days #1 tube 04/24/18 Unknown Rx Nicotine [Habitrol] 14 mg TD QDAY #30 patch 04/24/18 Unknown Rx diphenhydrAMINE [Benadryl CAP] 25 mg PO Q8H PRN #15 capsule 04/24/18 Unknown Rx ALBUTEROL Inhaler (OR & NICU) 2 puff IH QID PRN #1 inhalation 05/28/18 Unknown Rx [ProAir HFA Inhaler] HYDROcodone/APAP 5-325 [[place] 1 each PO Q4HR PRN #12 tablet 05/28/18 Unknown Rx 5/325] levoFLOXacin [Levaquin TAB] 500 mg PO QDAY #7 tablet 05/28/18 Unknown Rx predniSONE [Deltasone] 20 mg PO QDAY #5 tab 05/28/18 Unknown Rx ALBUTEROL NEB's [Proventil 0.083% 5 mg IH TID PRN #20 neb 08/21/18 Unknown Rx NEBS] Benzonatate [Tessalon Perles] 100 mg PO Q8HR #10 capsule 08/21/18 Unknown Rx DOXYCYCLINE Hyclate [Vibramycin 100 mg PO Q12HR #14 capsule 08/21/18 Unknown Rx CAP] predniSONE [Deltasone] 20 mg PO QDAY #5 tab 08/21/18 Unknown Rx traMADol [Ultram] 50 mg PO Q6HR PRN #12 tablet 08/21/18 Unknown Rx Allergies Allergy/AdvReac Type Severity Reaction Status Date / Time penicillin Allergy Unknown Verified 05/28/18 11:51 ED Review of Systems ROS: Stated complaint: RT SIDE CHEST PAIN/SOB Other details as noted in HPI Comment: All other systems reviewed and negative ED Past Medical Hx - Past Medical History Previous Medical History?: Yes Hx Hypertension: Yes Hx Heart Attack/AMI: No Hx Congestive Heart Failure: No Hx Diabetes: No Hx Deep Vein Thrombosis: No Hx Pulmonary Embolism: No Hx Arthritis: Yes Hx Psychiatric Treatment: Yes (DEPRESSION, cocaine abuse) Hx Asthma: No Hx COPD: Yes Hx Tuberculosis: No Additional medical history: pneumonia - Surgical History Past Surgical History?: Yes Hx Coronary Stent: No Hx Pacemaker: No Hx Internal Defibrillator: No Additional Surgical History: bladder - as a child - Social History Smoking Status: Current Some Day Smoker Substance Use Type: Cocaine - Medications Home Medications: Home Medications Medication Instructions Recorded Confirmed Last Taken Type Benzonatate [Tessalon Perles] 100 mg PO Q8HR #15 capsule 04/24/18 Unknown Rx DOXYCYCLINE Hyclate [Vibramycin 100 mg PO Q12HR #20 capsule 04/24/18 Unknown Rx CAP] Mupirocin [Bactroban 2% OINT] 1 applic NS BID 5 Days #1 tube 04/24/18 Unknown Rx Nicotine [Habitrol] 14 mg TD QDAY #30 patch 04/24/18 Unknown Rx diphenhydrAMINE [Benadryl CAP] 25 mg PO Q8H PRN #15 capsule 04/24/18 Unknown Rx ALBUTEROL Inhaler (OR & NICU) 2 puff IH QID PRN #1 inhalation 05/28/18 Unknown Rx [ProAir HFA Inhaler] HYDROcodone/APAP 5-325 [[place] 1 each PO Q4HR PRN #12 tablet 05/28/18 Unknown Rx 5/325] levoFLOXacin [Levaquin TAB] 500 mg PO QDAY #7 tablet 05/28/18 Unknown Rx predniSONE [Deltasone] 20 mg PO QDAY #5 tab 05/28/18 Unknown Rx ALBUTEROL NEB's [Proventil 0.083% 5 mg IH TID PRN #20 neb 08/21/18 Unknown Rx NEBS] Benzonatate [Tessalon Perles] 100 mg PO Q8HR #10 capsule 08/21/18 Unknown Rx DOXYCYCLINE Hyclate [Vibramycin 100 mg PO Q12HR #14 capsule 08/21/18 Unknown Rx CAP] predniSONE [Deltasone] 20 mg PO QDAY #5 tab 08/21/18 Unknown Rx traMADol [Ultram] 50 mg PO Q6HR PRN #12 tablet 08/21/18 Unknown Rx ED Physical Exam - General Limitations: No Limitations General appearance: alert, in no apparent distress - Head Head exam: Present: atraumatic, normocephalic - Eye Eye exam: Present: normal appearance, PERRL, EOMI - ENT ENT exam: Present: mucous membranes moist - Neck Neck exam: Present: normal inspection. Absent: tenderness, meningismus - Respiratory Respiratory exam: Present: normal lung sounds bilaterally, wheezes, chest wall tenderness (right). Absent: respiratory distress, rales, rhonchi, stridor - Cardiovascular Cardiovascular Exam: Present: regular rate, normal rhythm, normal heart sounds. Absent: systolic murmur, diastolic murmur, rubs, gallop - GI/Abdominal GI/Abdominal exam: Present: soft, normal bowel sounds. Absent: distended, tenderness, guarding, rebound - Rectal Rectal exam: Present: deferred - Extremities Exam Extremities exam: Present: normal inspection - Back Exam Back exam: Present: normal inspection - Neurological Exam Neurological exam: Present: alert, oriented X3 - Psychiatric Psychiatric exam: Present: normal affect, normal mood - Skin Skin exam: Present: warm, dry, intact, normal color. Absent: rash ED Course Vital Signs 08/21/18 12:00 Temperature 98.7 F Pulse Rate 95 H Respiratory 20 Rate Blood Pressure 137/106 O2 Sat by Pulse 97 Oximetry ED Medical Decision Making - Lab Data Result diagrams: 08/21/18 13:50 08/21/18 13:50 Lab Results 08/21/18 08/21/18 08/21/18 Range/Units 13:50 13:50 13:50 WBC 10.2 (4.5-11.0) K/mm3 RBC 5.08 H (3.65-5.03) M/mm3 Hgb 16.3 H (11.8-15.2) gm/dl Hct 46.1 H (35.5-45.6) % MCV 91 (84-94) fl MCH 32 (28-32) pg MCHC 35 H (32-34) % RDW 14.7 (13.2-15.2) % Plt Count 173 (140-440) K/mm3 Lymph % (Auto) 14.0 (13.4-35.0) % [place] % (Auto) 12.9 H (0.0-7.3) % Eos % (Auto) 2.0 (0.0-4.3) % Baso % (Auto) 0.8 (0.0-1.8) % Lymph # 1.4 (1.2-5.4) K/mm3 [place] # 1.3 H (0.0-0.8) K/mm3 Eos # 0.2 (0.0-0.4) K/mm3 Baso # 0.1 (0.0-0.1) K/mm3 Seg Neutrophils % 70.3 H (40.0-70.0) % Seg Neutrophils # 7.2 (1.8-7.7) K/mm3 PT 13.7 (12.2-14.9) Sec. INR 0.99 (0.87-1.13) APTT 34.8 (24.2-36.6) Sec. D-Dimer 214.97 (0-234) ng/mlDDU Sodium 138 (137-145) mmol/L Potassium 4.5 (3.6-5.0) mmol/L Chloride 100.1 (98-107) mmol/L Carbon Dioxide 25 (22-30) mmol/L Anion Gap 17 mmol/L BUN 12 (9-20) mg/dL Creatinine 0.8 (0.8-1.5) mg/dL Estimated GFR > 60 ml/min BUN/Creatinine Ratio 15 % Glucose 85 (75-100) mg/dL Calcium 8.7 (8.4-10.2) mg/dL Total Bilirubin 0.20 (0.1-1.2) mg/dL AST 17 (5-40) units/L ALT 8 (7-56) units/L Alkaline Phosphatase 59 (35-129) units/L Troponin T < 0.010 (0.00-0.029) ng/mL Total Protein 6.6 (6.3-8.2) g/dL Albumin 3.7 L (3.9-5) g/dL Albumin/Globulin Ratio 1.3 % - EKG Data -: EKG Interpreted by Me EKG shows normal: sinus rhythm, axis, intervals, QRS complexes, ST-T waves Rate: normal - EKG Data Interpretation: normal EKG - Radiology Data Chest x-ray shows hyperinflated lungs - Medical Decision Making Patient received pain meds and the treatment. Patient is feeling much improved at the end of his neb treatment states his pain is improved as well. Patient does have a never C but it did not have the hose facemask which has been supplied for him. Also start the patient back on his nebulized medications the patient be given a course of steroids and pain meds as well. Patient referred to Dr. Plummer for pulmonary Critical Care Time: Yes (30) Critical care attestation.: If time is entered above; I have spent that time in minutes in the direct care o f this critically ill patient, excluding procedure time. ED Disposition Clinical Impression: COPD exacerbation, Costochondral chest pain Disposition: DC-01 TO HOME OR SELFCARE Is pt being admited?: No Does the pt Need Aspirin: No Condition: Stable Instructions: Chronic Obstructive Pulmonary Disease (ED), Costochondritis (ED) Referrals: TIARRA RUTHERFORD MD [Staff Physician] - 3-5 Days Time of Disposition: 15:06
== END 2018-08-21 16:28 | disposition home or self-care (01) ==
LOC: ED 11:41
DX: J44.1 Chronic obstructive pulmonary disease with (acute) exacerbation (principal); M94.0 Chondrocostal junction syndrome [Tietze]; I10 Essential (primary) hypertension; M19.90 Unspecified osteoarthritis, unspecified site; F17.200 Nicotine dependence, unspecified, uncomplicated; F14.10 Cocaine abuse, uncomplicated; Z87.01 Personal history of pneumonia (recurrent); Z88.0 Allergy status to penicillin
CPT/HCPCS: 36415; 71046; 80053; 84484; 85025; 85379; 85610; 85730; 93005; 93010; 94640; 96374; 96375; 99285; J1100; J2270

== ENCOUNTER 2019-02-17 02:14 | Emergency (ER) | payer MEDICAID ==
[2019-02-17] MEDS ORDERED: guaiFENesin/CODEINE 100-10MG ORAL LIQD 5 ML PO ONE (07:22)
[2019-02-17] MEDS ORDERED: ALBUTEROL 2.5 MG/3 ML NEBU IH ONE ×2 (07:22→10:03)
[2019-02-17] MEDS ORDERED: methylPREDNISolone Sod Succinate 125 MG/2 ML INJ IV ONE (07:22)
[2019-02-17] MEDS ORDERED: IPRATROPIUM 0.02% NEBU 2.5 ML IH ONE (07:23)
--- NOTE | 2019-02-17 07:27 | Emergency Department Report ---
HPI - General Chief Complaint: Dyspnea/Respdistress Time Seen by Provider: 02/17/19 07:14 - HPI HPI: 63-year-old male presents to the emergency department from home with the complaint of a 3 day history of shortness of breath, coughing with coughing fits and some wheezing. The patient says he thinks it is his COPD. He is not oxygen dependent at home. He is a tobacco smoker. He has been using his albuterol inhaler without any relief. No recent travel or sick contacts at home. He does not have a primary care physician. He denies any chest pain, fever, lower extremity swelling. ED Past Medical Hx - Past Medical History Previous Medical History?: Yes Hx Hypertension: No Hx Heart Attack/AMI: No Hx Congestive Heart Failure: No Hx Diabetes: No Hx Deep Vein Thrombosis: No Hx Pulmonary Embolism: No Hx Arthritis: Yes Hx Psychiatric Treatment: Yes (DEPRESSION, cocaine abuse) Hx Asthma: No Hx COPD: Yes Hx Tuberculosis: No Additional medical history: pneumonia - Surgical History Hx Coronary Stent: No Hx Pacemaker: No Hx Internal Defibrillator: No Additional Surgical History: bladder - as a child - Social History Smoking Status: Current Every Day Smoker Substance Use Type: Cocaine - Medications Home Medications: Home Medications Medication Instructions Recorded Confirmed Last Taken Type Benzonatate [Tessalon Perles] 100 mg PO Q8HR #15 capsule 04/24/18 Unknown Rx DOXYCYCLINE Hyclate [Vibramycin 100 mg PO Q12HR #20 capsule 04/24/18 Unknown Rx CAP] Mupirocin [Bactroban 2% OINT] 1 applic NS BID 5 Days #1 tube 04/24/18 Unknown Rx Nicotine [Habitrol] 14 mg TD QDAY #30 patch 04/24/18 Unknown Rx diphenhydrAMINE [Benadryl CAP] 25 mg PO Q8H PRN #15 capsule 04/24/18 Unknown Rx HYDROcodone/APAP 5-325 [[place] 1 each PO Q4HR PRN #12 tablet 05/28/18 Unknown Rx 5/325] levoFLOXacin [Levaquin TAB] 500 mg PO QDAY #7 tablet 05/28/18 Unknown Rx ALBUTEROL NEB's [Proventil 0.083% 5 mg IH TID PRN #20 neb 08/21/18 Unknown Rx NEBS] Benzonatate [Tessalon Perles] 100 mg PO Q8HR #10 capsule 08/21/18 Unknown Rx DOXYCYCLINE Hyclate [Vibramycin 100 mg PO Q12HR #14 capsule 08/21/18 Unknown Rx CAP] predniSONE [Deltasone] 20 mg PO QDAY #5 tab 08/21/18 Unknown Rx traMADoL [Ultram] 50 mg PO Q6HR PRN #12 tablet 08/21/18 Unknown Rx ALBUTEROL Inhaler (OR & NICU) 2 puff IH QID PRN #1 inhalation 02/17/19 Unknown Rx [ProAir HFA Inhaler] guaiFENesin/CODEINE [Robitussin AC] 5 ml PO Q6H PRN #100 ml 02/17/19 Unknown Rx predniSONE [Deltasone] 20 mg PO BID #8 tab 02/17/19 Unknown Rx ED Review of Systems ROS: Stated complaint: PATEL Other details as noted in HPI Comment: All other systems reviewed and negative Constitutional: denies: chills, fever ENT: denies: ear pain, throat pain Respiratory: cough, shortness of breath, wheezing Cardiovascular: denies: chest pain, edema Gastrointestinal: denies: abdominal pain, vomiting Genitourinary: denies: dysuria, discharge Musculoskeletal: denies: back pain, arthralgia Skin: denies: rash, lesions Neurological: denies: headache, weakness Physical Exam - Physical Exam Vital Signs: Vital Signs 02/17/19 02/17/19 02:25 07:06 Temperature 98.8 F 98.0 F Pulse Rate 110 H 85 Respiratory 20 20 Rate Blood Pressure 122/97 Blood Pressure 120/84 [Right] O2 Sat by Pulse 94 95 Oximetry Physical Exam: ENERAL: The patient is well-developed well-nourished. HENT: Normocephalic. Atraumatic. Patient has moist mucous membranes. EYES: Extraocular motions are intact. NECK: Supple. Trachea is midline. CHEST/LUNGS: Expiratory wheezing. There is tachypnea but no excessive muscle use. Patient has a dry sounding cough with coughing fits. There is no respiratory distress noted. HEART/CARDIOVASCULAR: Regular. There is no tachycardia. There is no murmur. ABDOMEN: Abdomen is soft, nontender. Patient has normal bowel sounds. SKIN: Skin is warm and dry. NEURO: The patient is awake, alert, and oriented. The patient is cooperative. The patient has no focal neurologic deficits. Normal speech. MUSCULOSKELETAL: There is no tenderness or deformity. There is no evidence of acute injury. ED Course Vital Signs 02/17/19 02/17/19 02:25 07:06 Temperature 98.8 F 98.0 F Pulse Rate 110 H 85 Respiratory 20 20 Rate Blood Pressure 122/97 Blood Pressure 120/84 [Right] O2 Sat by Pulse 94 95 Oximetry ED Medical Decision Making - Lab Data Result diagrams: 02/17/19 07:25 02/17/19 07:25 - EKG Data -: EKG Interpreted by Me EKG shows normal: sinus rhythm (PACs), axis, intervals, QRS complexes (q waves to anterior leads), ST-T waves Rate: normal - EKG Data When compared to previous EKG there are: no significant change Interpretation: unchanged when compared t (08/24/18) - Radiology Data Radiology results: report reviewed, image reviewed interpreted by me: Chest x-ray shows some hyperinflation of the lungs but no obvious pneumonia, pleural effusions, pneumothorax, or any other acute process. CT angiography of the chest with 2-D reconstructions INDICATION: Shortness of breath and elevated d-dimer Thin section axial images were obtained as well as 2-D reformatted MIP images in all 3 planes COMPARISON: 07/01/2016 FINDINGS: There is no hilar or mediastinal adenopathy. No pleural or pericardial effusion. Lung windows show no nodules, masses or infiltrates. There is no thoracic aortic aneurysm or dissection present. Routine axial images as well as 2-D reconstructions through the pulmonary arteries show no evidence of emboli. Again seen are extensive COPD changes. Large bullae are present without pneumothorax. A 7 mm right lower lobe perifissural nodule on image #71 is unchanged in size or appearance. IMPRESSION: Extensive COPD. No pneumonia or pulmonary embolus seen. - Medical Decision Making This patient presents with some shortness of breath, wheezing and coughing with coughing fits with a history of COPD. Chest x-ray did not show any pneumonia, pleural effusions, pneumothorax, or any other acute process. Patient's labs were mostly unremarkable except for a slightly elevated and equivocal d-dimer and some signs of mild dehydration. He was given IV fluid resuscitation, Solu- Medrol, and 2 different breathing treatments. A CT angiography of the chest was done that did not show any pulmonary embolism, dissection, or any other acute process. Overall this appears consistent with a COPD/emphysema exacerbation. The patient was seen ambulatory in the emergency department and it did not increase his work of breathing. There is no hypoxia and vital signs stable th roughout his ED course. We discussed smoking cessation. He will be discharged home with an albuterol inhaler, steroids and a cough medication. He has been given referrals for primary care and pulmonology. He will return to the emergency Department with any worsening of his symptoms or any acute distress. - Differential Diagnosis COPD, pneumonia, PE, bronchitis Critical Care Time: No Critical care attestation.: If time is entered above; I have spent that time in minutes in the direct care of this critically ill patient, excluding procedure time. ED Disposition Clinical Impression: COPD exacerbation Disposition: DC-01 TO HOME OR SELFCARE Is pt being admited?: No Condition: Stable Instructions: Chronic Obstructive Pulmonary Disease (ED) Additional Instructions: Please follow-up with a primary care physician in the next few days and I have given you a referral for some. I have also given you a referral for a local material specialist, Dr. Blanc. Please try and quit smoking. Return to the emergency Department with any worsening of your symptoms or any acute distress. You have been prescribed a medication that is sedating and therefore should not be taken prior to driving, working, and responsible for children and in no way should be mixed with alcohol of any quantity. Prescriptions: predniSONE [Deltasone] 20 mg PO BID #8 tab ALBUTEROL Inhaler (OR & NICU) [ProAir HFA Inhaler] 2 puff IH QID PRN #1 inhalation PRN Reason: Shortness Of Breath guaiFENesin/CODEINE [Robitussin AC] 5 ml PO Q6H PRN #100 ml PRN Reason: Cough Referrals: JOSE ALBERTO SOLIS MD [Staff Physician] - 2-3 Days CHRISTIE BLANC MD [Staff Physician] - 2-3 Days [facility] [Outside] - 2-3 Days Time of Disposition: 11:14
--- NOTE | 2019-02-17 07:48 | XRay Report ---
CHEST 1 VIEW INDICATION: SOB. COMPARISON: 08/21/2018. FINDINGS: Support devices: None. Heart: Within normal limits. Lungs/Pleura: No acute infiltrate. Increased interstitial markings, underlying COPD and apical bullou s disease remains. Additional findings: None. IMPRESSION: Stable chest. Signer Name: Vincent Smith MD Signed: 02/17/2019 7:44 AM Workstation Name: [id number]
[2019-02-17 08:21] LABS: Basophils # (Auto) 0.1 K/mm3 (0.0-0.1); Basophils % (Auto) 0.7 % (0.0-1.8); Eosinophils # (Auto) 0.1 K/mm3 (0.0-0.4); Eosinophils % (Auto) 1.1 % (0.0-4.3); Hematocrit 45.1 % (35.5-45.6); Hemoglobin 15.1 gm/dl (11.8-15.2); Lymphocytes # (Auto) 1.3 K/mm3 (1.2-5.4); Lymphocytes % (Auto) 12.4 % (13.4-35.0); Mean Corpuscular HGB Conc 34 % (32-34); Mean Corpuscular Volume 92 fl (84-94); Monocytes # (Auto) 1.1 K/mm3 (0.0-0.8); Monocytes % (Auto) 11.1 % (0.0-7.3); Platelet Count 202 K/mm3 (140-440); Red Blood Count 4.92 M/mm3 (3.65-5.03); Red Cell Distribution Width 14.7 % (13.2-15.2)
[2019-02-17 08:39] LABS: Alanine Aminotransferase 8 units/L (7-56); Albumin 3.7 g/dL (3.9-5); BUN/Creatinine Ratio 36; Blood Urea Nitrogen 32 mg/dL (9-20); Hemolysis Index 4
[2019-02-17] MEDS ORDERED: SODIUM CHLORIDE 0.9% 1000 ML 1,000 ML IV ONE (08:42)
--- NOTE | 2019-02-17 09:58 | Cat Scan Report ---
CT angiography of the chest with 2-D reconstructions INDICATION: Shortness of breath and elevated d-dimer Thin section axial images were obtained as well as 2-D reformatted MIP images in all 3 planes COMPARISON: 07/01/2016 FINDINGS: There is no hilar or mediastinal adenopathy. No pleural or pericardial effusion. Lung windo ws show no nodules, masses or infiltrates. There is no thoracic aortic aneurysm or dissection present . Routine axial images as well as 2-D reconstructions through the pulmonary arteries show no evidence of emboli. Again seen are extensive COPD changes. Large bullae are present without pneumothorax. A 7 mm right lower lobe perifissural nodule on image #71 is unchanged in size or appearance. IMPRESSION: Extensive COPD. No pneumonia or pulmonary embolus seen. Automated exposure control was utilized to diminish radiation dose. Signer Name: Randall Lane MD Signed: 02/17/2019 9:53 AM Workstation Name: [id number]
[2019-02-17 10:33] VITALS: BP 102/61
== END 2019-02-17 11:26 | disposition home or self-care (01) ==
LOC: ED 02:14
DX: J44.1 Chronic obstructive pulmonary disease with (acute) exacerbation (principal); M19.90 Unspecified osteoarthritis, unspecified site; J44.9 Chronic obstructive pulmonary disease, unspecified; F17.200 Nicotine dependence, unspecified, uncomplicated
CPT/HCPCS: 36415; 71045; 71275; 80053; 84484; 85025; 85379; 93005; 93010; 94640; 96374; 99285; J2930; J7030; Q9967; 94644

== ENCOUNTER 2019-08-30 09:49 | Emergency (ER) | payer MEDICAID ==
--- NOTE | 2019-08-30 10:24 | Emergency Department Report ---
ED General Adult HPI - General Chief complaint: Weakness Stated complaint: WEAKNESS/N/V/HOT COLD SWEAT S Time Seen by Provider: 08/30/19 10:20 Source: patient Mode of arrival: Ambulatory Limitations: No Limitations - History of Present Illness Initial comments: This is a 64-year-old man with history of end-stage COPD. He states he has a neb machine at home but he does not use it. He occasionally uses a hand-held inhaler. He states that he got overheated last Tuesday and since then he has not felt well. He has had a nonproductive cough. He denies chest or leg pain. He did not measure his temperature but he thinks he may have had a fever. He complains of generalized weakness. He is found to be hypertensive. However, he states he has no history of prior hypertension. Apparently the patient has a history of cocaine abuse and depression. 02/20 Discharge Summary: Hospitalization Reason for admission: worsening shortness of breath/pneumonia Condition: Stable Pertinent studies: Chest x-ray; right lung infiltrate, severe emphysema Follow-up chest x-ray; 04/23/2018; ill-defined infiltrate, possible atelectasis Hospital course: 62-year-old male patient with significant history of COPD and ongoing tobacco use was admitted with acute respiratory distress, right-sided pneumonia and COPD exacerbation.Patient was managed with IV antibiotics, nebulizers, IV steroids, oxygen and supportive care Follow-up chest x-ray showed mild improvement of pneumonia, patient also had positive MRSA nasal swab. Managed with the topical mupirocin Smoking cessation counseling done advised nicotine patch, Today patient is co mfortable no new complaints Vital signs reviewed, physical examination no new changes Hemodynamically and clinically stable at discharge Discharge Diagnosis: --Lactic acidosis; secondary to sepsis due to pneumonia and acute bronchitis --Sepsis; leukocytosis secondary to pneumonia --Right-sided pneumonia probably community-acquired; received 5 days of IV antibiotics DC on oral doxycycline --Acute hypoxic respiratory failure; improvement --Acute exacerbation of COPD; oxygen titrated O2 sats more than 90% --Ongoing tobacco use; smoking cessation counseling, nicotine patch as needed --Severe malnutrition; nutrition supplements, supportive care --Positive MRSA nasal swab; isolation per protocol, Mupirocin local oint 2-3 times a day for 5 days -: Gradual, hour(s) Severity scale (0 -10): 0 Consistency: intermittent (Intermittent nonproductive cough. Does not complain of pain.) Improves with: none Worsens with: none Associated Symptoms: cough, fever/chills (Subjective. No shaking chills.), malaise, weakness Treatments Prior to Arrival: none (Not on home O2. Pulse oximetry was 98% at triage.) - Related Data Previous Rx's Medication Instructions Recorded Last Taken Type Benzonatate [Tessalon Perles] 100 mg PO Q8HR #15 capsule 04/24/18 Unknown Rx DOXYCYCLINE Hyclate [Vibramycin 100 mg PO Q12HR #20 capsule 04/24/18 Unknown Rx CAP] Mupirocin [Bactroban 2% OINT] 1 applic NS BID 5 Days #1 tube 04/24/18 Unknown Rx Nicotine [Habitrol] 14 mg TD QDAY #30 patch 04/24/18 Unknown Rx diphenhydrAMINE [Benadryl CAP] 25 mg PO Q8H PRN #15 capsule 04/24/18 Unknown Rx HYDROcodone/APAP 5-325 [[place] 1 each PO Q4HR PRN #12 tablet 05/28/18 Unknown Rx 5/325] levoFLOXacin [Levaquin TAB] 500 mg PO QDAY #7 tablet 05/28/18 Unknown Rx ALBUTEROL NEB's [Proventil 0.083% 5 mg IH TID PRN #20 neb 08/21/18 Unknown Rx NEBS] Benzonatate [Tessalon Perles] 100 mg PO Q8HR #10 capsule 08/21/18 Unknown Rx DOXYCYCLINE Hyclate [Vibramycin 100 mg PO Q12HR #14 capsule 08/21/18 Unknown Rx CAP] predniSONE [Deltasone] 20 mg PO QDAY #5 tab 08/21/18 Unknown Rx traMADoL [Ultram] 50 mg PO Q6HR PRN #12 tablet 08/21/18 Unknown Rx Albuterol INH(or & Nicu Only) 2 puff IH QID PRN #1 inhalation 02/17/19 Unknown Rx [ProAir HFA Inhaler] guaiFENesin/CODEINE [Robitussin AC] 5 ml PO Q6H PRN #100 ml 02/17/19 Unknown Rx predniSONE [Deltasone] 20 mg PO BID #8 tab 02/17/19 Unknown Rx Albuterol Sulfate [Proventil Hfa] 6.7 gm IH Q4H PRN #1 hfa.aer.ad 08/30/19 Unknown Rx Allergies Allergy/AdvReac Type Severity Reaction Status Date / Time penicillin Allergy Anaphylaxis Verified 08/30/19 09:56 ED Review of Systems ROS: Stated complaint: WEAKNESS/N/V/HOT COLD SWEAT S Other details as noted in HPI Constitutional: weakness. denies: chills, fever Eyes: denies: eye pain, eye discharge, vision change ENT: denies: ear pain, throat pain Respiratory: cough, wheezing. denies: shortness of breath Cardiovascular: denies: chest pain, palpitations Endocrine: no symptoms reported Gastrointestinal: denies: abdominal pain, nausea, diarrhea Genitourinary: denies: urgency, dysuria Musculoskeletal: denies: back pain, joint swelling, arthralgia Skin: denies: rash, lesions Neurological: denies: headache, weakness, paresthesias Psychiatric: denies: anxiety, depression Hematological/Lymphatic: denies: easy bleeding, easy bruising ED Past Medical Hx - Past Medical History Hx Hypertension: No Hx Heart Attack/AMI: No Hx Congestive Heart Failure: No Hx Diabetes: No Hx Deep Vein Thrombosis: No Hx Pulmonary Embolism: No Hx Arthritis: Yes Hx Psychiatric Treatment: Yes (DEPRESSION, cocaine abuse) Hx Asthma: No Hx COPD: Yes Hx Tuberculosis: No Additional medical history: pneumonia - Surgical History Hx Coronary Stent: No Hx Pacemaker: No Hx Internal Defibrillator: No Additional Surgical History: bladder - as a child - Social History Smoking Status: Current Every Day Smoker Substance Use Type: None, Cocaine - Medications Home Medications: Home Medications Medication Instructions Recorded Confirmed Last Taken Type Benzonatate [Tessalon Perles] 100 mg PO Q8HR #15 capsule 04/24/18 Unknown Rx DOXYCYCLINE Hyclate [Vibramycin 100 mg PO Q12HR #20 capsule 04/24/18 Unknown Rx CAP] Mupirocin [Bactroban 2% OINT] 1 applic NS BID 5 Days #1 tube 04/24/18 Unknown Rx Nicotine [Habitrol] 14 mg TD QDAY #30 patch 04/24/18 Unknown Rx diphenhydrAMINE [Benadryl CAP] 25 mg PO Q8H PRN #15 capsule 04/24/18 Unknown Rx HYDROcodone/APAP 5-325 [[place] 1 each PO Q4HR PRN #12 tablet 05/28/18 Unknown Rx 5/325] levoFLOXacin [Levaquin TAB] 500 mg PO QDAY #7 tablet 05/28/18 Unknown Rx ALBUTEROL NEB's [Proventil 0.083% 5 mg IH TID PRN #20 neb 08/21/18 Unknown Rx NEBS] Benzonatate [Tessalon Perles] 100 mg PO Q8HR #10 capsule 08/21/18 Unknown Rx DOXYCYCLINE Hyclate [Vibramycin 100 mg PO Q12HR #14 capsule 08/21/18 Unknown Rx CAP] predniSONE [Deltasone] 20 mg PO QDAY #5 tab 08/21/18 Unknown Rx traMADoL [Ultram] 50 mg PO Q6HR PRN #12 tablet 08/21/18 Unknown Rx Albuterol INH(or & Nicu Only) 2 puff IH QID PRN #1 inhalation 02/17/19 Unknown Rx [ProAir HFA Inhaler] guaiFENesin/CODEINE [Robitussin AC] 5 ml PO Q6H PRN #100 ml 02/17/19 Unknown Rx predniSONE [Deltasone] 20 mg PO BID #8 tab 02/17/19 Unknown Rx Albuterol Sulfate [Proventil Hfa] 6.7 gm IH Q4H PRN #1 hfa.aer.ad 08/30/19 Unknown Rx ED Physical Exam - General Limitations: No Limitations General appearance: cachectic (Somewhat. At a minimum asthenic.) - Head Head exam: Present: atraumatic, normocephalic - Eye Eye exam: Present: normal appearance. Absent: scleral icterus - ENT ENT exam: Present: mucous membranes moist - Neck Neck exam: Present: normal inspection. Absent: tenderness, meningismus - Respiratory Respiratory exam: Present: decreased breath sounds (Somewhat distant). Absent: respiratory distress - Cardiovascular Cardiovascular Exam: Present: regular rate, normal rhythm. Absent: systolic murmur, diastolic murmur, rubs, gallop - GI/Abdominal GI/Abdominal exam: Present: soft, normal bowel sounds. Absent: distended, tenderness, guarding, rebound - Rectal Rectal exam: Present: deferred - Extremities Exam Extremities exam: Present: normal inspection, normal capillary refill. Absent: pedal edema, joint swelling, calf tenderness - Back Exam Back exam: Present: normal inspection - Neurological Exam Neurological exam: Present: alert, oriented X3, CN II-XII intact. Absent: motor sensory deficit - Psychiatric Psychiatric exam: Present: normal affect, normal mood - Skin Skin exam: Present: warm, dry, intact, normal color. Absent: rash ED Course Vital Signs 08/30/19 08/30/19 08/30/19 10:01 10:17 10:25 Temperature 98.2 F Pulse Rate 75 Respiratory 18 18 Rate Blood Pressure Blood Pressure 167/107 [Left] O2 Sat by Pulse 98 98 100 Oximetry 08/30/19 10:31 Temperature Pulse Rate 54 L Respiratory 24 Rate Blood Pressure 156/126 Blood Pressure [Left] O2 Sat by Pulse 100 Oximetry - Reevaluation(s) Reevaluation #1: On reexamination, the patient is without dyspnea. He never experienced any chest pain. He states that he does not do cocaine as much as he "used to". He was counseled. He is discharged in stable condition. 08/30/19 12:22 ED Medical Decision Making - Lab Data Result diagrams: 08/30/19 11:21 08/30/19 11:21 Laboratory Results - last 24 hr 08/30/19 08/30/19 08/30/19 11:18 11:21 11:21 WBC 6.6 RBC 4.77 Hgb 15.0 Hct 45.0 MCV 94 MCH 31 MCHC 33 RDW 15.0 Plt Count 208 Lymph % (Auto) 18.9 [place] % (Auto) 11.8 H Eos % (Auto) 3.6 Baso % (Auto) 1.9 H Lymph # 1.2 [place] # 0.8 Eos # 0.2 Baso # 0.1 Seg Neutrophils % 63.8 Seg Neutrophils # 4.2 Sodium 142 Potassium 4.0 Chloride 103.5 Carbon Dioxide 31 H Anion Gap 12 BUN 15 Creatinine 0.9 Estimated GFR > 60 BUN/Creatinine Ratio 17 Glucose 83 Calcium 8.6 Total Creatine Kinase 60 CK-MB (CK-2) 3.6 CK-MB (CK-2) Rel Index 6.0 H Urine Color Urine Turbidity Urine pH Ur Specific [place] Urine Protein Urine Glucose (UA) Urine Ketones Urine Blood Urine Nitrite Urine Bilirubin Urine Urobilinogen Ur Leukocyte Esterase Urine WBC (Auto) Urine RBC (Auto) Urine Opiates Screen Presumptive negative Urine Methadone Screen Presumptive negative Ur Barbiturates Screen Presumptive negative Ur Phencyclidine Scrn Presumptive negative Ur Amphetamines Screen Presumptive negative U Benzodiazepines Scrn Presumptive negative Urine Cocaine Screen Presumptive positive U Marijuana (THC) Screen Presumptive negative Drugs of Abuse Note Disclamer 08/30/19 11:33 WBC RBC Hgb Hct MCV MCH MCHC RDW Plt Count Lymph % (Auto) [place] % (Auto) Eos % (Auto) Baso % (Auto) Lymph # [place] # Eos # Baso # Seg Neutrophils % Seg Neutrophils # Sodium Potassium Chloride Carbon Dioxide Anion Gap BUN Creatinine Estimated GFR BUN/Creatinine Ratio Glucose Calcium Total Creatine Kinase CK-MB (CK-2) CK-MB (CK-2) Rel Index Urine Color Yellow Urine Turbidity Clear Urine pH 5.0 Ur Specific [place] 1.016 Urine Protein <15 mg/dl Urine Glucose (UA) Neg Urine Ketones Neg Urine Blood Neg Urine Nitrite Neg Urine Bilirubin Neg Urine Urobilinogen < 2.0 Ur Leukocyte Esterase Neg Urine WBC (Auto) < 1.0 Urine RBC (Auto) 1.0 Urine Opiates Screen Urine Methadone Screen Ur Barbiturates Screen Ur Phencyclidine Scrn Ur Amphetamines Screen U Benzodiazepines Scrn Urine Cocaine Screen U Marijuana (THC) Screen Drugs of Abuse Note Critical care attestation.: If time is entered above; I have spent that time in minutes in the direct care of this critically ill patient, excluding procedure time. ED Disposition Clinical Impression: Cocaine abuse, COPD exacerbation Disposition: - TO HOME OR SELFCARE Is pt being admited?: No Does the pt Need Aspirin: No Condition: Stable Instructions: Chronic Obstructive Pulmonary Disease (ED), Cocaine Abuse (ED) Additional Instructions: The abuse of cocaine will be extremely dangerous for you. This may be the cause of your blood pressure elevation today. However, follow-up on your blood pressure elevation at the [facility]. Return to the emergency department any acute change or problem. Prescriptions: Albuterol Sulfate [Proventil Hfa] 6.7 gm IH Q4H PRN #1 hfa.aer.ad PRN Reason: Wheezing Time of Disposition: 12:22
[2019-08-30 10:42] VITALS: BP 156/126
--- NOTE | 2019-08-30 10:53 | XRay Report ---
CHEST 1 VIEW INDICATION / CLINICAL INFORMATION: ferver/cough. COMPARISON: 02/17/2019 FINDINGS: SUPPORT DEVICES: None. HEART / MEDIASTINUM: No significant abnormality. LUNGS / PLEURA: Bullous emphysema appears similar to the comparison study with no superimposed acute disease. No pneumothorax. ADDITIONAL FINDINGS: No significant additional findings. IMPRESSION: 1. No acute findings. 2. Pulmonary emphysema. Signer Name: Gumaro Garner MD Signed: 08/30/2019 10:48 AM Workstation Name: [id number]
[2019-08-30] MEDS ORDERED: IPRATROPIUM/ALBUTEROL SULFATE 3 ML AMPUL.NEB IH ONE (11:00)
[2019-08-30 11:47] LABS: Bilirubin,Urine NEG (Negative); Blood,Urine NEG (Negative); Color,Urine Yellow (Yellow); Protein,Urine <15 mg/dL mg/dL (Negative); Urobilinogen,Urine < 2.0 mg/dL (<2.0); WBC,Urine < 1.0 /HPF (0.0-6.0)
[2019-08-30 11:54] LABS: Amphetamine Screen,Urine PRESUMPTIVE NEGATIVE; Benzodiazepines Screen,Urine PRESUMPTIVE NEGATIVE; Cannabinoid Screen,Urine PRESUMPTIVE NEGATIVE; Methadone Screen,Urine PRESUMPTIVE NEGATIVE; Opiate Screen,Urine PRESUMPTIVE NEGATIVE
[2019-08-30 12:06] LABS: Cocaine Screen,Urine PRESUMPTIVE POSITIVE
[2019-08-30 12:10] LABS: Creatine Kinase MB 3.6 ng/mL (0.0-4.0)
[2019-08-30 12:11] LABS: BUN/Creatinine Ratio 17; Blood Urea Nitrogen 15 mg/dL (9-20); Calcium 8.6 mg/dL (8.4-10.2); Hemolysis Index 16
[2019-08-30 12:15] LABS: Basophils # (Auto) 0.1 K/mm3 (0.0-0.1); Basophils % (Auto) 1.9 % (0.0-1.8); Eosinophils # (Auto) 0.2 K/mm3 (0.0-0.4); Eosinophils % (Auto) 3.6 % (0.0-4.3); Lymphocytes # (Auto) 1.2 K/mm3 (1.2-5.4); Lymphocytes % (Auto) 18.9 % (13.4-35.0); Mean Corpuscular HGB Conc 33 % (32-34); Mean Corpuscular Volume 94 fl (84-94); Monocytes # (Auto) 0.8 K/mm3 (0.0-0.8); Monocytes % (Auto) 11.8 % (0.0-7.3); Platelet Count 208 K/mm3 (140-440); Red Blood Count 4.77 M/mm3 (3.65-5.03)
== END 2019-08-30 12:51 | disposition home or self-care (01) ==
LOC: ED 09:49
DX: J44.1 Chronic obstructive pulmonary disease with (acute) exacerbation (principal); F14.10 Cocaine abuse, uncomplicated; M19.91 Primary osteoarthritis, unspecified site; F32.9 Major depressive disorder, single episode, unspecified; F17.200 Nicotine dependence, unspecified, uncomplicated; Z98.890 Other specified postprocedural states; Z79.2 Long term (current) use of antibiotics; Z79.899 Other long term (current) drug therapy; Z88.0 Allergy status to penicillin
CPT/HCPCS: 36415; 71045; 80048; 80307; 81001; 82550; 82553; 85025; 94640; 94644

== ENCOUNTER 2019-12-04 17:23 | Emergency (ER) | payer MEDICAID ==
[2019-12-04 17:46] VITALS: BP 123/79
[2019-12-04] MEDS ORDERED: ONDANSETRON 4 MG ODT TAB PO ONE (18:39)
[2019-12-04] MEDS ORDERED: FAMOTIDINE 20 MG TAB PO ONE (18:39)
[2019-12-04] MEDS ORDERED: ALUM-MAG HYDROXIDE-SIMETHICONE 200-200-20MG/5ML ORAL LIQD 30 ML PO ONE (18:39)
[2019-12-04 19:01] LABS: Basophils # (Auto) 0.1 K/mm3 (0.0-0.1); Basophils % (Auto) 1.2 % (0.0-1.8); Eosinophils # (Auto) 0.3 K/mm3 (0.0-0.4); Eosinophils % (Auto) 3.7 % (0.0-4.3); Hematocrit 44.8 % (35.5-45.6); Hemoglobin 14.7 gm/dl (11.8-15.2); Lymphocytes # (Auto) 1.6 K/mm3 (1.2-5.4); Lymphocytes % (Auto) 19.5 % (13.4-35.0); Mean Corpuscular HGB Conc 33 % (32-34); Mean Corpuscular Volume 94 fl (84-94); Monocytes % (Auto) 13.1 % (0.0-7.3); Platelet Count 184 K/mm3 (140-440); Red Blood Count 4.77 M/mm3 (3.65-5.03); Red Cell Distribution Width 15.5 % (13.2-15.2)
[2019-12-04 19:11] LABS: Bacteria,Urine 1+ /HPF (Negative); Bilirubin,Urine NEG (Negative); Blood,Urine NEG (Negative); Color,Urine Yellow (Yellow); Mucus,Urine FEW /HPF; Protein,Urine <15 mg/dL mg/dL (Negative); WBC,Urine < 1.0 /HPF (0.0-6.0)
[2019-12-04 19:15] LABS: Alanine Aminotransferase 14 units/L (7-56); Albumin 3.8 g/dL (3.9-5); BUN/Creatinine Ratio 26; Blood Urea Nitrogen 23 mg/dL (9-20); Calcium 9.2 mg/dL (8.4-10.2); Hemolysis Index 9
--- NOTE | 2019-12-04 19:40 | Emergency Department Report ---
ED Abdominal Pain HPI - General Chief Complaint: Abdominal Pain Stated Complaint: STOMACH PAIN Time Seen by Provider: 12/04/19 18:27 Source: patient Mode of arrival: Ambulatory Limitations: No Limitations - History of Present Illness Initial Comments: Patient is a 64-year-old male presents emergency room with complaints of generalized abdominal discomfort that began a month ago. He states that 2 days ago he had an episode of vomiting but has not had any since then. He denies any diarrhea, fever, unexplained weight loss, hematochezia, melena, hematemesis. He states he had a normal bowel movement today. Patient states that he also has generalized joint pain which he attributes to his history of RA. he states that he also believes he had a possible spider bite to the left forearm that occurred yesterday. he denies any fever, drainage, numbness or weakness. he did not see or feel anything bite him. Patient states that he believes the symptoms are also related to that he has been clean from cocaine and cigarettes for 31 days per patient. He denies any other past medical history. No allergies medications. - Related Data Previous Rx's Medication Instructions Recorded Last Taken Type Benzonatate [Tessalon Perles] 100 mg PO Q8HR #15 capsule 04/24/18 11/02/19 Rx Nicotine [Habitrol] 14 mg TD QDAY #30 patch 04/24/18 Unknown Rx diphenhydrAMINE [Benadryl CAP] 25 mg PO Q8H PRN #15 capsule 04/24/18 11/01/19 Rx HYDROcodone/APAP 5-325 [[place] 1 each PO Q4HR PRN #12 tablet 05/28/18 Unknown Rx 5/325] ALPRAZolam [Xanax TAB] 0.5 mg PO BID PRN #20 tab 11/03/19 Unknown Rx Albuterol Mdi (or & Nicu Only) 2 puff IH QID PRN #1 gram 11/03/19 Unknown Rx [ProAir HFA Inhaler] Benzonatate [Tessalon Perles] 100 mg PO Q8HR #10 capsule 11/03/19 Unknown Rx Ipratropium/Albuterol Sulfate 1 ampul IH TIDRT #50 ampul.neb 11/03/19 Unknown Rx [DUONEB *Not for PRN Use*] Prednisone [predniSONE 10 mg 10 mg PO .TAPER #1 tab.ds.pk 11/03/19 Unknown Rx (6-Day Pack, 21 Tabs)] Trazodone HCl [traZODone] 50 mg PO QHS #30 tablet 11/03/19 Unknown Rx levoFLOXacin [Levaquin] 750 mg PO QDAY #6 tablet 11/03/19 Unknown Rx traMADoL [Ultram 50 MG tab] 50 mg PO BID PRN #30 tablet 11/03/19 Unknown Rx Clindamycin [Clindamycin CAP] 450 mg PO TID 7 Days #63 capsule 12/04/19 Unknown Rx Famotidine [Pepcid] 40 mg PO QHS #14 tablet 12/04/19 Unknown Rx Meloxicam [Mobic] 7.5 mg PO QDAY PRN #10 tablet 12/04/19 Unknown Rx Neomycin/Bacitracin/Polymyxinb 1 applicatio TP BID #1 oint...g. 12/04/19 Unknown Rx [Triple Antibiotic Ointment] Sucralfate [Carafate] 1 gm PO ACHS 7 Days #21 tablet 12/04/19 Unknown Rx Allergies Allergy/AdvReac Type Severity Reaction Status Date / Time penicillin Allergy Anaphylaxis Verified 08/30/19 09:56 ED Review of Systems ROS: Stated complaint: STOMACH PAIN Other details as noted in HPI Comment: All other systems reviewed and negative ED Past Medical Hx - Past Medical History Previous Medical History?: Yes Hx Hypertension: No Hx Heart Attack/AMI: No Hx Congestive Heart Failure: No Hx Diabetes: No Hx Deep Vein Thrombosis: No Hx Pulmonary Embolism: No Hx Arthritis: Yes Hx Psychiatric Treatment: Yes (DEPRESSION, cocaine abuse) Hx Asthma: No Hx COPD: Yes Hx Tuberculosis: No Additional medical history: pneumonia - Surgical History Past Surgical History?: Yes Hx Coronary Stent: No Hx Pacemaker: No Hx Internal Defibrillator: No Additional Surgical History: bladder - as a child. urethra sx - Social History Smoking Status: Current Some Day Smoker - Medications Home Medications: Home Medications Medication Instructions Recorded Confirmed Last Taken Type Benzonatate [Tessalon Perles] 100 mg PO Q8HR #15 capsule 04/24/18 11/02/19 11/02/19 Rx Nicotine [Habitrol] 14 mg TD QDAY #30 patch 04/24/18 11/02/19 Unknown Rx diphenhydrAMINE [Benadryl CAP] 25 mg PO Q8H PRN #15 capsule 04/24/18 11/02/19 11/01/19 Rx HYDROcodone/APAP 5-325 [[place] 1 each PO Q4HR PRN #12 tablet 05/28/18 11/02/19 Unknown Rx 5/325] ALPRAZolam [Xanax TAB] 0.5 mg PO BID PRN #20 tab 11/03/19 Unknown Rx Albuterol Mdi (or & Nicu Only) 2 puff IH QID PRN #1 gram 11/03/19 Unknown Rx [ProAir HFA Inhaler] Benzonatate [Tessalon Perles] 100 mg PO Q8HR #10 capsule 11/03/19 Unknown Rx Ipratropium/Albuterol Sulfate 1 ampul IH TIDRT #50 ampul.neb 11/03/19 Unknown Rx [DUONEB *Not for PRN Use*] Prednisone [predniSONE 10 mg 10 mg PO .TAPER #1 tab.ds.pk 11/03/19 Unknown Rx (6-Day Pack, 21 Tabs)] Trazodone HCl [traZODone] 50 mg PO QHS #30 tablet 11/03/19 Unknown Rx levoFLOXacin [Levaquin] 750 mg PO QDAY #6 tablet 11/03/19 Unknown Rx traMADoL [Ultram 50 MG tab] 50 mg PO BID PRN #30 tablet 11/03/19 Unknown Rx Clindamycin [Clindamycin CAP] 450 mg PO TID 7 Days #63 capsule 12/04/19 Unknown Rx Famotidine [Pepcid] 40 mg PO QHS #14 tablet 12/04/19 Unknown Rx Meloxicam [Mobic] 7.5 mg PO QDAY PRN #10 tablet 12/04/19 Unknown Rx Neomycin/Bacitracin/Polymyxinb 1 applicatio TP BID #1 oint...g. 12/04/19 Unknown Rx [Triple Antibiotic Ointment] Sucralfate [Carafate] 1 gm PO ACHS 7 Days #21 tablet 12/04/19 Unknown Rx ED Physical Exam - General Limitations: No Limitations General appearance: alert, in no apparent distress - Head Head exam: Present: atraumatic, normocephalic - Eye Eye exam: Present: normal appearance - ENT ENT exam: Present: mucous membranes moist - Respiratory Respiratory exam: Present: normal lung sounds bilaterally. Absent: respiratory distress, wheezes, rales, rhonchi, stridor, chest wall tenderness, accessory muscle use, decreased breath sounds, prolonged expiratory - Cardiovascular Cardiovascular Exam: Present: regular rate, normal rhythm, normal heart sounds. Absent: systolic murmur, diastolic murmur, rubs, gallop - GI/Abdominal GI/Abdominal exam: Present: soft, normal bowel sounds. Absent: distended, tenderness, guarding, rebound, rigid - Extremities Exam Extremities exam: Present: full ROM, normal capillary refill. Absent: tenderness, pedal edema, joint swelling - Neurological Exam Neurological exam: Present: alert, oriented X3 - Psychiatric Psychiatric exam: Present: normal affect, normal mood - Skin Skin exam: Present: warm, dry, other (small abrasion to the posterior left fore arm with 2 cm area of surrounding erythema, no necrosis, no skin denuding, no blistering, no drainage, neurovascularly intact) ED Course Vital Signs 12/04/19 12/04/19 17:44 20:00 Temperature 97.6 F Pulse Rate 62 82 Respiratory 18 17 Rate Blood Pressure 123/79 O2 Sat by Pulse 97 99 Oximetry ED Medical Decision Making - Lab Data Result diagrams: 12/04/19 18:12 12/04/19 18:12 Lab Results 12/04/19 12/04/19 12/04/19 Range/Units 18:12 18:12 18:57 WBC 8.0 (4.5-11.0) K/mm3 RBC 4.77 (3.65-5.03) M/mm3 Hgb 14.7 (11.8-15.2) gm/dl Hct 44.8 (35.5-45.6) % MCV 94 (84-94) fl MCH 31 (28-32) pg MCHC 33 (32-34) % RDW 15.5 H (13.2-15.2) % Plt Count 184 (140-440) K/mm3 Lymph % (Auto) 19.5 (13.4-35.0) % [place] % (Auto) 13.1 H (0.0-7.3) % Eos % (Auto) 3.7 (0.0-4.3) % Baso % (Auto) 1.2 (0.0-1.8) % Lymph # 1.6 (1.2-5.4) K/mm3 [place] # 1.0 H (0.0-0.8) K/mm3 Eos # 0.3 (0.0-0.4) K/mm3 Baso # 0.1 (0.0-0.1) K/mm3 Seg Neutrophils % 62.5 (40.0-70.0) % Seg Neutrophils # 5.0 (1.8-7.7) K/mm3 Sodium 141 (137-145) mmol/L Potassium 4.3 (3.6-5.0) mmol/L Chloride 101.9 (98-107) mmol/L Carbon Dioxide 26 (22-30) mmol/L Anion Gap 17 mmol/L BUN 23 H (9-20) mg/dL Creatinine 0.9 (0.8-1.3) mg/dL Estimated GFR > 60 ml/min BUN/Creatinine Ratio 26 % Glucose 81 (75-100) mg/dL Calcium 9.2 (8.4-10.2) mg/dL Total Bilirubin 0.20 (0.1-1.2) mg/dL AST 18 (5-40) units/L ALT 14 (7-56) units/L Alkaline Phosphatase 59 (35-129) units/L Total Protein 6.6 (6.3-8.2) g/dL Albumin 3.8 L (3.9-5) g/dL Albumin/Globulin Ratio 1.4 % Lipase 15 (13-60) units/L Urine Color Yellow (Yellow) Urine Turbidity Clear (Clear) Urine pH 6.0 (5.0-7.0) Ur Specific [place] 1.023 (1.003-1.030) Urine Protein <15 mg/dl (Negative) mg/dL Urine Glucose (UA) Neg (Negative) mg/dL Urine Ketones Neg (Negative) mg/dL Urine Blood Neg (Negative) Urine Nitrite Neg (Negative) Urine Bilirubin Neg (Negative) Urine Urobilinogen 2.0 (<2.0) mg/dL Ur Leukocyte Esterase Neg (Negative) Urine WBC (Auto) < 1.0 (0.0-6.0) /HPF Urine RBC (Auto) 1.0 (0.0-6.0) /HPF Urine Bacteria (Auto) 1+ (Negative) /HPF Urine Mucus Few /HPF - Medical Decision Making Patient is a 64-year-old male presents emergency room with complaints of generalized abdominal discomfort that began a month ago. He states that 2 days ago he had an episode of vomiting but has not had any since then. He denies any diarrhea, fever, unexplained weight loss, hematochezia, melena, hematemesis. He states he had a normal bowel movement today. Patient states that he also has generalized joint pain which he attributes to his history of RA. he states that he also believes he had a possible spider bite to the left forearm that occurred yesterday. he denies any fever, drainage, numbness or weakness. he did not see or feel anything bite him. Patient states that he believes the symptoms are also related to that he has been clean from cocaine and cigarettes for 31 days per patient. He denies any other past medical history. No allergies medications. Vitals are normal. No abdominal tenderness on exam, no distention, no guarding, no rebound, no rigidity, normal bowel sounds. on exam: small abrasion to the posterior left forearm with 2 cm area of surrounding erythema, no necrosis, no skin denuding, no blistering, no drainage, neurovascularly intact, examination consistent with mild cellulitis. Labs are normal. UA is within normal limits. Patient is not having any obstructive symptoms. Patient given Maalox, Zofran, Pepcid and symptoms are resolved. Patient be referred to GI doctor for further evaluation. Discuss strict return precautions with patient. Patient given prescription for Carafate, Pepcid, clindamycin, triple antibiotic ointment, Mobic. advised pt Please use medication as prescribed. Please follow-up with a primary care doctor for reexamination within the next few days. Please follow-up with a GI doctor. Return to emergency room for any new or worsening symptoms. Critical care attestation.: If time is entered above; I have spent that time in minutes in the direct care of this critically ill patient, excluding procedure time. ED Disposition Clinical Impression: Abdominal pain Qualifiers: Abdominal location: generalized Qualified Code(s): R10.84 - Generalized abdo roderick pain Joint pain Qualifiers: Joint pain location: unspecified Qualified Code(s): M25.50 - Pain in unspecified joint Cellulitis Qualifiers: Site of cellulitis: extremity Site of cellulitis of extremity: lower extremity Laterality: left Qualified Code(s): L03.116 - Cellulitis of left lower limb Disposition: DC-01 TO HOME OR SELFCARE Is pt being admited?: No Does the pt Need Aspirin: No Condition: Stable Instructions: Cellulitis (ED), Diet for Ulcers and Gastritis (ED), Abdominal Pain (ED) Additional Instructions: Please use medication as prescribed. Please follow-up with a primary care doctor for reexamination within the next few days. Please follow-up with a GI doctor. Return to emergency room for any new or worsening symptoms. Prescriptions: Famotidine [Pepcid] 40 mg PO QHS #14 tablet Sucralfate [Carafate] 1 gm PO ACHS 7 Days #21 tablet Clindamycin [Clindamycin CAP] 450 mg PO TID 7 Days #63 capsule Meloxicam [Mobic] 7.5 mg PO QDAY PRN #10 tablet PRN Reason: pain Neomycin/Bacitracin/Polymyxinb [Triple Antibiotic Ointment] 1 applicatio TP BID #1 oint...g. Referrals: MALCOLM CASTREJON MD [Staff Physician] - 2-3 Days [facility] [Provider Group] - 2-3 Days [facility] [Outside] - 2-3 Days [facility] [Provider Group] - 2-3 Days Time of Disposition: 19:41 Print Language: SAMI
== END 2019-12-04 20:00 | disposition home or self-care (01) ==
LOC: ED 17:23
DX: R10.84 Generalized abdominal pain (principal); M25.50 Pain in unspecified joint; L03.116 Cellulitis of left lower limb; M19.90 Unspecified osteoarthritis, unspecified site; F32.9 Major depressive disorder, single episode, unspecified; J44.9 Chronic obstructive pulmonary disease, unspecified; F17.200 Nicotine dependence, unspecified, uncomplicated; Z79.899 Other long term (current) drug therapy; Z88.0 Allergy status to penicillin
CPT/HCPCS: 36415; 80053; 81001; 83690; 85025; 99283; Q0162

== ENCOUNTER 2020-02-26 11:28 | Emergency (ER) | payer MEDICAID ==
[2020-02-26 11:41] VITALS: BP 160/95
--- NOTE | 2020-02-26 12:14 | Event Note ---
ED Screening Note Date of service: 02/26/20 Time: 12:12 ED Screening Note: Patient complains of cough, bilateral leg swelling, and shortness of breath History of COPD This initial assessment/diagnostic orders/clinical plan/treatment(s) is/are subject to change based on patients health status, clinical progression and re- assessment by fellow clinical providers in the ED. Further treatment and workup at subsequent clinical providers discretion. Patient/guardian urged not to elope from the ED as their condition may be serious if not clinically assessed and managed. Initial orders include: labs cxr
--- NOTE | 2020-02-26 12:54 | XRay Report ---
CHEST 2 VIEWS INDICATION / CLINICAL INFORMATION: shortness of breath. COMPARISON: Chest one view from 11/01/2019. FINDINGS: SUPPORT DEVICES: None. HEART / MEDIASTINUM: No significant abnormality. LUNGS / PLEURA: Stable emphysema/chronic brain changes. No significant pleural effusion, pneumothorax or other acute abnormality. ADDITIONAL FINDINGS: No significant additional findings. IMPRESSION: 1. No acute abnormality of the chest. Signer Name: Amandeep Caldwell MD Signed: 02/26/2020 12:49 PM Workstation Name: [id number]
[2020-02-26 12:55] LABS: Bilirubin,Urine NEG (Negative); Blood,Urine NEG (Negative); Color,Urine Yellow (Yellow); Hyaline Casts,Urine 1 /LPF; Mucus,Urine FEW /HPF; Protein,Urine <15 mg/dL mg/dL (Negative); Urobilinogen,Urine < 2.0 mg/dL (<2.0); WBC,Urine < 1.0 /HPF (0.0-6.0)
[2020-02-26 15:01] LABS: Basophils # (Auto) 0.1 K/mm3 (0.0-0.1); Basophils % (Auto) 2.3 % (0.0-1.8); Eosinophils # (Auto) 0.2 K/mm3 (0.0-0.4); Eosinophils % (Auto) 2.8 % (0.0-4.3); Hematocrit 45.8 % (35.5-45.6); Hemoglobin 15.8 gm/dl (11.8-15.2); Lymphocytes # (Auto) 1.1 K/mm3 (1.2-5.4); Lymphocytes % (Auto) 17.9 % (13.4-35.0); Mean Corpuscular HGB Conc 35 % (32-34); Mean Corpuscular Volume 90 fl (84-94); Monocytes # (Auto) 0.6 K/mm3 (0.0-0.8); Monocytes % (Auto) 10.3 % (0.0-7.3); Red Blood Count 5.07 M/mm3 (3.65-5.03); Red Cell Distribution Width 14.8 % (13.2-15.2)
[2020-02-26 15:06] LABS: Platelet Count 224 K/mm3 (140-440)
[2020-02-26 15:20] LABS: Alanine Aminotransferase 11 units/L (7-56); BUN/Creatinine Ratio 20; Blood Urea Nitrogen 16 mg/dL (9-20); Calcium 9.5 mg/dL (8.4-10.2); Hemolysis Index 6
[2020-02-26] MEDS ORDERED: IPRATROPIUM/ALBUTEROL SULFATE 3 ML AMPUL.NEB IH ONE (15:25)
[2020-02-26] MEDS ORDERED: methylPREDNISolone Sod Succinate 125 MG/2 ML INJ IM ONE (15:25)
--- NOTE | 2020-02-26 15:26 | Emergency Department Report ---
- General Chief Complaint: Upper Respiratory Infection Stated Complaint: FEVER,LUNG PROBLEMS Time Seen by Provider: 02/26/20 14:43 Source: patient Mode of arrival: Ambulatory Limitations: No Limitations - History of Present Illness Initial Comments: 64-year-old male with a history of COPD currently not on home O2, as well as a history of depression, past history of cocaine abuse (reports quiting about 4-5 mths ago) and past history of tobacco use which he reported that he stopped doing about a month ago presents to the ER today complaining of cough and congestion. Patient states that his symptoms started about 1 week ago. Patient reports productive cough with yellow sputum with chest congestion, he reports "a little" wheezing, and he states that he had subjective fever couple days ago but none since. He states that he has shortness of breath chronically secondary to his COPD but this has not gotten worse in the past week since he has been sick. He denies any rhinorrhea, nasal congestion or sore throat. He denies any ill contacts, recent travel or known COVID-19 contacts. Patient states that he does have 2 inhalers that he uses for COPD, 1 which may be a rescue inhaler that he has only been using 1-2 times per day since he has been sick. He reports pain to the bilateral nipples for about a month but otherwise no chest pain. He also reports that for 1 night he did have swelling to his both his legs which was 2 days ago but this has since resolved. MD Complaint: cough -: week(s) (1) - Related Data Previous Rx's Medication Instructions Recorded Last Taken Type Albuterol Mdi (or & Nicu Only) 2 puff IH QID PRN #1 gram 11/03/19 Unknown Rx [ProAir HFA Inhaler] Benzonatate [Tessalon Perles] 100 mg PO Q8HR #10 capsule 11/03/19 Unknown Rx Azithromycin [Zithromax Z-CARLOS] 250 mg PO DAILY #5 tab 02/26/20 Unknown Rx Benzonatate [Tessalon Perles] 100 mg PO Q8HR #15 capsule 02/26/20 Unknown Rx Ipratropium/Albuterol Sulfate 1 ampul IH TIDRT #50 ampul.neb 02/26/20 Unknown Rx [DUONEB *Not for PRN Use*] predniSONE [Deltasone] 50 mg PO QDAY #4 tab 02/26/20 Unknown Rx Allergies Allergy/AdvReac Type Severity Reaction Status Date / Time penicillin Allergy Anaphylaxis Verified 08/30/19 09:56 ED Review of Systems ROS: Stated complaint: FEVER,LUNG PROBLEMS Other details as noted in HPI Comment: All other systems reviewed and negative Constitutional: fever ENT: denies: ear pain, throat pain Respiratory: cough, shortness of breath (Chronic), wheezing (Mild) Cardiovascular: denies: chest pain, palpitations, syncope, paroxysmal nocturnal dyspnea Gastrointestinal: denies: abdominal pain, nausea, diarrhea Genitourinary: denies: urgency, dysuria Musculoskeletal: other (Leg swelling x2 days ago but this has resolved) Skin: denies: rash, lesions Neurological: denies: headache, weakness, paresthesias Psychiatric: denies: anxiety, depression ED Past Medical Hx - Past Medical History Previous Medical History?: Yes Hx Hypertension: No Hx Heart Attack/AMI: No Hx Congestive Heart Failure: No Hx Diabetes: No Hx Deep Vein Thrombosis: No Hx Pulmonary Embolism: No Hx Arthritis: Yes Hx Psychiatric Treatment: Yes (DEPRESSION, cocaine abuse) Hx Asthma: No Hx COPD: Yes Hx Tuberculosis: No Additional medical history: pneumonia - Surgical History Past Surgical History?: Yes Hx Coronary Stent: No Hx Pacemaker: No Hx Internal Defibrillator: No Additional Surgical History: bladder - as a child. urethra sx - Social History Smoking Status: Former Smoker Substance Use Type: None - Medications Home Medications: Home Medications Medication Instructions Recorded Confirmed Last Taken Type Albuterol Mdi (or & Nicu Only) 2 puff IH QID PRN #1 gram 11/03/19 Unknown Rx [ProAir HFA Inhaler] Benzonatate [Tessalon Perles] 100 mg PO Q8HR #10 capsule 11/03/19 Unknown Rx Azithromycin [Zithromax Z-CARLOS] 250 mg PO DAILY #5 tab 02/26/20 Unknown Rx Benzonatate [Tessalon Perles] 100 mg PO Q8HR #15 capsule 02/26/20 Unknown Rx Ipratropium/Albuterol Sulfate 1 ampul IH TIDRT #50 ampul.neb 02/26/20 Unknown Rx [DUONEB *Not for PRN Use*] predniSONE [Deltasone] 50 mg PO QDAY #4 tab 02/26/20 Unknown Rx ED Physical Exam - General Limitations: No Limitations General appearance: alert, in no apparent distress - Head Head exam: Present: atraumatic, normocephalic, normal inspection - Eye Eye exam: Present: normal appearance, PERRL, EOMI Pupils: Present: normal accommodation - ENT ENT exam: Present: normal exam, normal orophraynx, mucous membranes moist - Neck Neck exam: Present: normal inspection, full ROM. Absent: meningismus - Respiratory Respiratory exam: Present: decreased breath sounds (At the bases bilaterally). Absent: respiratory distress, wheezes, rales - Cardiovascular Cardiovascular Exam: Present: regular rate, normal rhythm, normal heart sounds - GI/Abdominal GI/Abdominal exam: Present: soft. Absent: distended, tenderness - Extremities Exam Extremities exam: Present: normal inspection, full ROM. Absent: pedal edema, calf tenderness - Back Exam Back exam: Present: normal inspection - Neurological Exam Neurological exam: Present: alert, oriented X3, CN II-XII intact, normal gait - Psychiatric Psychiatric exam: Present: normal affect, normal mood - Skin Skin exam: Present: intact ED Course Vital Signs 02/26/20 02/26/20 02/26/20 11:35 16:00 16:12 Temperature 98.0 F Pulse Rate 85 Pulse Rate [ 69 Bilateral] Respiratory 20 18 Rate Respiratory 18 Rate [Bilateral ] Blood Pressure 160/95 [Right] O2 Sat by Pulse 98 99 Oximetry ED Medical Decision Making - Lab Data Result diagrams: 02/26/20 14:40 02/26/20 14:40 - Radiology Data Radiology results: report reviewed - Medical Decision Making 1633 --patient with a history of COPD, peptic ulcer disease, past history of cocaine abuse and tobacco use presents to the ER today complaining of cough, and chest congestion x1 week. Patient is well-appearing, nontoxic, does not appear to be in any acute pain or respiratory distress, appears well-hydrated, with stable vital signs. He is neurologically intact with normal mental status. Pt reports feeling better after solumedrol and neb tx. His chest x-ray shows nothing acute. Labs including troponin unremarkable. His history, exam, diagnostic testing, and current condition does not demonstrate an infectious pro cess such as meningitis, severe pneumonia, sepsis, acute coronary syndrome, or any serious bacterial infection requiring further testing, treatment or admission at this time. Discussed suspected diagnosis and results with patient. Patient expressed understanding of instructions and agrees with plan. Patient was stable at time of discharge. Critical care attestation.: If time is entered above; I have spent that time in minutes in the direct care of this critically ill patient, excluding procedure time. ED Disposition Clinical Impression: Bronchitis Disposition: DC-01 TO HOME OR SELFCARE Is pt being admited?: No Does the pt Need Aspirin: No Condition: Stable Instructions: Acute Bronchitis, Adult, Chronic Bronchitis (ED) Additional Instructions: I recommend that you use your rescue inhaler (proventil/albuterol) 4 times per day. Take the antibiotic, cough medication and steroids as prescribed. I recommend that you follow up with your PCP, urgent care, [facility] drive thru or health department for outpatient COVID 19 testing. Return to ED if your symptoms changes or worsens in any way. Prescriptions: predniSONE [Deltasone] 50 mg PO QDAY #4 tab Benzonatate [Tessalon Perles] 100 mg PO Q8HR #15 capsule Azithromycin [Zithromax Z-CARLOS] 250 mg PO DAILY #5 tab Ipratropium/Albuterol Sulfate [DUONEB *Not for PRN Use*] 1 ampul IH TIDRT #50 ampul.neb Referrals: PRIMARY CARE, [Primary Care Provider] - 3-5 Days Time of Disposition: 16:19
== END 2020-02-26 16:53 | disposition home or self-care (01) ==
LOC: ED 11:28
DX: J40 Bronchitis, not specified as acute or chronic (principal); F32.9 Major depressive disorder, single episode, unspecified; Z87.891 Personal history of nicotine dependence; Z79.899 Other long term (current) drug therapy
CPT/HCPCS: 36415; 71046; 80053; 81001; 83880; 84484; 85025; 94640; 96372; 99284; J2930; 94644

== ENCOUNTER 2021-01-28 16:29 | Emergency (ER) | payer MEDICARE, MEDICAID ==
[2021-01-28] MEDS ORDERED: BENZONATATE 100 MG CAP PO ONE (18:45)
[2021-01-28] MEDS ORDERED: traMADol 50 MG TAB PO ONE (18:45)
[2021-01-28] MEDS ORDERED: IPRATROPIUM/ALBUTEROL SULFATE 3 ML AMPUL.NEB IH ONE (18:45)
[2021-01-28 19:04] LABS: Basophils # (Auto) 0.1 K/mm3 (0.0-0.1); Basophils % (Auto) 1.7 % (0.0-1.8); Eosinophils # (Auto) 0.3 K/mm3 (0.0-0.4); Eosinophils % (Auto) 4.9 % (0.0-4.3); Hematocrit 44.6 % (35.5-45.6); Hemoglobin 14.7 gm/dl (11.8-15.2); Lymphocytes # (Auto) 1.4 K/mm3 (1.2-5.4); Lymphocytes % (Auto) 24.3 % (13.4-35.0); Mean Corpuscular HGB Conc 33 % (32-34); Mean Corpuscular Volume 94 fl (84-94); Monocytes # (Auto) 0.7 K/mm3 (0.0-0.8); Monocytes % (Auto) 11.7 % (0.0-7.3); Platelet Count 202 K/mm3 (140-440); Red Blood Count 4.73 M/mm3 (3.65-5.03); Red Cell Distribution Width 15.1 % (13.2-15.2)
--- NOTE | 2021-01-28 19:09 | XRay Report ---
XR chest 1V ap INDICATION / CLINICAL INFORMATION: cough COMPARISON: 02/26/2020 FINDINGS: SUPPORT DEVICES: None. HEART / MEDIASTINUM: No significant abnormality. LUNGS / PLEURA: Chronic interstitial thickening. Paucity of the vasculature at the lung apices consis tent with emphysema. Lungs are clear. Costophrenic sulci are sharp. No pneumothorax. ADDITIONAL FINDINGS: No significant additional findings. IMPRESSION: 1. No acute findings. Signer Name: Travis Nj MD Signed: 01/28/2021 7:05 PM Workstation Name: [id number]
[2021-01-28 19:23] LABS: BUN/Creatinine Ratio 20; Blood Urea Nitrogen 18 mg/dL (9-20); Calcium 8.7 mg/dL (8.4-10.2); Hemolysis Index 20
--- NOTE | 2021-01-28 19:51 | Emergency Department Report ---
ED General Adult HPI - General Chief complaint: Dyspnea/Respdistress Stated complaint: SOB Time Seen by Provider: 01/28/21 17:28 Source: patient Mode of arrival: Ambulatory Limitations: No Limitations - History of Present Illness Initial comments: The patient presents to the emergency department the chief complaint of a cough and body aches have been present for 2 weeks. Patient states he has a history of COPD and when he felt like this in the past he had pneumonia. He denies chest pain, abdominal pain, or headache. -: Gradual, week(s) (2) Severity scale (0 -10): 2 Quality: aching Consistency: constant Improves with: none Worsens with: none Associated Symptoms: denies other symptoms Treatments Prior to Arrival: none - Related Data Previous Rx's Medication Instructions Recorded Last Taken Type Albuterol Mdi (or & Nicu Only) 2 puff IH QID PRN #1 gram 11/03/19 Unknown Rx [ProAir HFA Inhaler] Benzonatate [Tessalon Perles] 100 mg PO Q8HR #10 capsule 11/03/19 Unknown Rx Azithromycin [Zithromax Z-CARLOS] 250 mg PO DAILY #5 tab 02/26/20 Unknown Rx Benzonatate [Tessalon Perles] 100 mg PO Q8HR #15 capsule 02/26/20 Unknown Rx Ipratropium/Albuterol Sulfate 1 ampul IH TIDRT #50 ampul.neb 02/26/20 Unknown Rx [DUONEB *Not for PRN Use*] predniSONE [Deltasone] 50 mg PO QDAY #4 tab 02/26/20 Unknown Rx Albuterol Mdi (or & Nicu Only) 2 puff IH Q4HR PRN #1 inhalation 01/28/21 Unknown Rx [ProAir HFA Inhaler] Azithromycin [Zithromax Z-CARLOS] 250 mg PO DAILY #6 tablet 01/28/21 Unknown Rx traMADoL [Ultram] 50 mg PO Q6HR PRN #24 tablet 01/28/21 Unknown Rx Allergies Allergy/AdvReac Type Severity Reaction Status Date / Time penicillin Allergy Anaphylaxis Verified 01/28/21 16:33 ED Review of Systems ROS: Stated complaint: SOB Other details as noted in HPI Comment: All other systems reviewed and negative Constitutional: denies: chills, fever Eyes: denies: eye pain, eye discharge, vision change ENT: denies: ear pain, throat pain Respiratory: denies: cough, shortness of breath, wheezing Cardiovascular: denies: chest pain, palpitations Endocrine: no symptoms reported Gastrointestinal: denies: abdominal pain, nausea, diarrhea Genitourinary: denies: urgency, dysuria Musculoskeletal: denies: back pain, joint swelling, arthralgia Skin: denies: rash, lesions Neurological: denies: headache, weakness, paresthesias Psychiatric: denies: anxiety, depression Hematological/Lymphatic: denies: easy bleeding, easy bruising ED Past Medical Hx - Past Medical History Hx Hypertension: No Hx Heart Attack/AMI: No Hx Congestive Heart Failure: No Hx Diabetes: No Hx Deep Vein Thrombosis: No Hx Pulmonary Embolism: No Hx Arthritis: Yes Hx Psychiatric Treatment: Yes (DEPRESSION, cocaine abuse) Hx Asthma: No Hx COPD: Yes Hx Tuberculosis: No Additional medical history: pneumonia - Surgical History Hx Coronary Stent: No Hx Pacemaker: No Hx Internal Defibrillator: No Additional Surgical History: bladder - as a child. urethra sx - Social History Smoking Status: Former Smoker Substance Use Type: None - Medications Home Medications: Home Medications Medication Instructions Recorded Confirmed Last Taken Type Albuterol Mdi (or & Nicu Only) 2 puff IH QID PRN #1 gram 11/03/19 Unknown Rx [ProAir HFA Inhaler] Benzonatate [Tessalon Perles] 100 mg PO Q8HR #10 capsule 11/03/19 Unknown Rx Azithromycin [Zithromax Z-CARLOS] 250 mg PO DAILY #5 tab 02/26/20 Unknown Rx Benzonatate [Tessalon Perles] 100 mg PO Q8HR #15 capsule 02/26/20 Unknown Rx Ipratropium/Albuterol Sulfate 1 ampul IH TIDRT #50 ampul.neb 02/26/20 Unknown Rx [DUONEB *Not for PRN Use*] predniSONE [Deltasone] 50 mg PO QDAY #4 tab 02/26/20 Unknown Rx Albuterol Mdi (or & Nicu Only) 2 puff IH Q4HR PRN #1 inhalation 01/28/21 Unknown Rx [ProAir HFA Inhaler] Azithromycin [Zithromax Z-CARLOS] 250 mg PO DAILY #6 tablet 01/28/21 Unknown Rx traMADoL [Ultram] 50 mg PO Q6HR PRN #24 tablet 01/28/21 Unknown Rx ED Physical Exam - General Limitations: No Limitations General appearance: alert, in no apparent distress - Head Head exam: Present: atraumatic, normocephalic - Eye Eye exam: Present: normal appearance - ENT ENT exam: Present: mucous membranes moist - Neck Neck exam: Present: normal inspection - Respiratory Respiratory exam: Present: wheezes. Absent: respiratory distress - Cardiovascular Cardiovascular Exam: Present: regular rate, normal rhythm. Absent: systolic murmur, diastolic murmur, rubs, gallop - GI/Abdominal GI/Abdominal exam: Present: soft, normal bowel sounds - Rectal Rectal exam: Present: deferred - Extremities Exam Extremities exam: Present: normal inspection - Back Exam Back exam: Present: normal inspection - Neurological Exam Neurological exam: Present: alert, oriented X3 - Psychiatric Psychiatric exam: Present: normal affect, normal mood - Skin Skin exam: Present: warm, dry, intact, normal color. Absent: rash ED Course Vital Signs 01/28/21 01/28/21 01/28/21 16:35 17:46 17:47 Temperature 97.9 F 97.8 F Pulse Rate 83 81 Pulse Rate [ Anterior] Pulse Rate [ Posterior] Respiratory 28 H 18 18 Rate Respiratory Rate [Anterior] Respiratory Rate [Posterior ] Blood Pressure 160/101 Blood Pressure 104/89 [Left] O2 Sat by Pulse 95 94 94 Oximetry 01/28/21 19:15 Temperature Pulse Rate Pulse Rate [ 68 Anterior] Pulse Rate [ 72 Posterior] Respiratory Rate Respiratory 18 Rate [Anterior] Respiratory 18 Rate [Posterior ] Blood Pressure Blood Pressure [Left] O2 Sat by Pulse Oximetry ED Medical Decision Making - Lab Data Result diagrams: 01/28/21 18:48 01/28/21 18:48 Lab Results 01/28/21 01/28/21 Range/Units 18:48 18:48 WBC 5.9 (4.5-11.0) K/mm3 RBC 4.73 (3.65-5.03) M/mm3 Hgb 14.7 (11.8-15.2) gm/dl Hct 44.6 (35.5-45.6) % MCV 94 (84-94) fl MCH 31 (28-32) pg MCHC 33 (32-34) % RDW 15.1 (13.2-15.2) % Plt Count 202 (140-440) K/mm3 Lymph % (Auto) 24.3 (13.4-35.0) % [place] % (Auto) 11.7 H (0.0-7.3) % Eos % (Auto) 4.9 H (0.0-4.3) % Baso % (Auto) 1.7 (0.0-1.8) % Lymph # (Auto) 1.4 (1.2-5.4) K/mm3 [place] # (Auto) 0.7 (0.0-0.8) K/mm3 Eos # (Auto) 0.3 (0.0-0.4) K/mm3 Baso # (Auto) 0.1 (0.0-0.1) K/mm3 Seg Neutrophils % 57.4 (40.0-70.0) % Seg Neutrophils # 3.4 (1.8-7.7) K/mm3 Sodium 143 (137-145) mmol/L Potassium 4.2 (3.6-5.0) mmol/L Chloride 103.5 (98-107) mmol/L Carbon Dioxide 28 (22-30) mmol/L Anion Gap 16 mmol/L BUN 18 (9-20) mg/dL Creatinine 0.9 (0.8-1.3) mg/dL Estimated GFR > 60 ml/min BUN/Creatinine Ratio 20 % Glucose 68 L (75-100) mg/dL Calcium 8.7 (8.4-10.2) mg/dL NT-Pro-B Natriuret Pep 300.8 (0-900) pg/mL - Radiology Data Radiology results: report reviewed - Medical Decision Making Breathing treatment given Critical care attestation.: If time is entered above; I have spent that time in minutes in the direct care of this critically ill patient, excluding procedure time. ED Disposition Clinical Impression: COPD exacerbation Disposition: 01 HOME / SELF CARE / HOMELESS Is pt being admited?: No Does the pt Need Aspirin: No Condition: Stable Instructions: Chronic Obstructive Pulmonary Disease (ED), Chronic Obstructive Pulmonary Disease Additional Instructions: Return if worse Referrals: PRIMARY CARE, [Primary Care Provider] - 3-5 Days MALCOLM CASTREJON MD [Staff Physician] - 3-5 Days Time of Disposition: 20:30
[2021-01-28 20:42] VITALS: BP 163/109
== END 2021-01-28 20:42 | disposition home or self-care (01) ==
LOC: ED 16:29
DX: J44.1 Chronic obstructive pulmonary disease with (acute) exacerbation (principal); M19.90 Unspecified osteoarthritis, unspecified site; F32.9 Major depressive disorder, single episode, unspecified; F14.10 Cocaine abuse, uncomplicated; Z87.891 Personal history of nicotine dependence; Z88.0 Allergy status to penicillin; Z79.899 Other long term (current) drug therapy
CPT/HCPCS: 36415; 71045; 80048; 83880; 85025; 94640; 94644; 99284

== ENCOUNTER 2021-04-13 07:05 | Emergency (ER) | payer MEDICARE ==
[2021-04-13 07:30] VITALS: BP 135/107
[2021-04-13] MEDS ORDERED: IBUPROFEN 600 MG TAB PO ONE (08:18)
[2021-04-13] MEDS ORDERED: METOCLOPRAMIDE 10 MG TAB PO ONE (08:19)
[2021-04-13] MEDS ORDERED: ALBUTEROL 2.5 MG/3 ML NEBU IH ONE (08:19)
--- NOTE | 2021-04-13 08:20 | Emergency Department Report ---
ED General Adult HPI - General Chief complaint: Upper Respiratory Infection Stated complaint: WEAKNESS/HEADACHE PUI?: Yes Time Seen by Provider: 04/13/21 08:00 Source: patient, RN notes reviewed, old records reviewed Mode of arrival: Ambulatory Limitations: No Limitations - History of Present Illness Initial comments: The patient was evaluated in the emergency department for symptoms described in the history of present illness. He/she was evaluated in the context of the global COVID-19 pandemic, which necessitated consideration that the patient might be at risk for infection with the virus that causes COVID-19. Instituti onal protocols and algorithms that pertain to the evaluation of patients at risk for COVID-19 are in a state of rapid change based on information released by regulatory bodies including the CDC and federal and state organizations. These policies and algorithms were followed during the patient's care in the emergency department. Please note that these policies, procedures and recommendations changed on a rapid basis. During the entire history and physical examination, I had on complete personal protective equipment. The patient is a 65-year-old gentleman. He appears to have a history of COPD. He reports that he is COVID-19 vaccinated. He presents to the ER today with a complaint of 3 to 4 weeks of chest wall tightness with coughing, clear, yellow, and green phlegm, headache, malaise and fatigue. He reports chronic issues with patient smell, but denies recent change to either of these. He reports that he is COVID-19 vaccinated. He has not followed up with a primary care doctor. He was previously living in [place], but is now staying with his sister. He reports that he has been having these symptoms intermittently for a few weeks to a few months. Denies travel, surgery, immobilization, posterior leg pain or leg swelling. Has not really taken anything [id number] for his symptoms The headache is frontal and bitemporal. The headache is not sudden or thunderclap in nature. The headache is not maximal in intensity. The headache is not the worst headache of his life. Chest wall pain is central and left-sided, does not radiate the back, arms or neck, and is present for weeks -: Gradual, days(s), week(s) Location: head, chest Quality: aching Consistency: intermittent Improves with: none Worsens with: none - Related Data Previous Rx's Medication Instructions Recorded Last Taken Type Benzonatate [Tessalon Perles] 100 mg PO Q8HR #15 capsule 02/26/20 Unknown Rx Albuterol Mdi (or & Nicu Only) 2 puff IH Q4HR PRN #1 inhalation 01/28/21 Unknown Rx [ProAir HFA Inhaler] Acetaminophen [Non-Aspirin Extra 500 mg PO Q6HR PRN #30 tablet 04/13/21 Unknown Rx Strength] Albuterol Mdi (or & Nicu Only) 2 puff IH QID PRN #1 gram 04/13/21 Unknown Rx [ProAir HFA Inhaler] Benzonatate [Tessalon Perles] 100 mg PO Q8HR #10 capsule 04/13/21 Unknown Rx DOXYCYCLINE Hyclate [Vibramycin] 100 mg PO Q12HR #10 capsule 04/13/21 Unknown Rx Ipratropium (Nf) [Atrovent] 2 puff IH Q6HR PRN #1 inha 04/13/21 Unknown Rx Metoclopramide [Reglan] 10 mg PO QID PRN #30 tablet 04/13/21 Unknown Rx Allergies Allergy/AdvReac Type Severity Reaction Status Date / Time penicillin Allergy Anaphylaxis Verified 01/28/21 16:33 ED Review of Systems ROS: Stated complaint: WEAKNESS/HEADACHE Other details as noted in HPI Constitutional: malaise. denies: fever Eyes: denies: eye discharge ENT: congestion Respiratory: cough. denies: wheezing Cardiovascular: chest pain Gastrointestinal: denies: vomiting Musculoskeletal: myalgia Neurological: headache, weakness Psychiatric: denies: homicidal thoughts, suicidal thoughts ED Past Medical Hx - Past Medical History Previous Medical History?: Yes Hx Hypertension: No Hx Heart Attack/AMI: No Hx Congestive Heart Failure: No Hx Diabetes: No Hx Deep Vein Thrombosis: No Hx Pulmonary Embolism: No Hx Arthritis: Yes Hx Psychiatric Treatment: Yes (DEPRESSION, cocaine abuse) Hx Asthma: No Hx COPD: Yes Hx Tuberculosis: No Additional medical history: pneumonia - Surgical History Past Surgical History?: Yes Hx Coronary Stent: No Hx Pacemaker: No Hx Internal Defibrillator: No Additional Surgical History: bladder - as a child. urethra sx - Social History Smoking Status: Former Smoker Substance Use Type: None - Medications Home Medications: Home Medications Medication Instructions Recorded Confirmed Last Taken Type Benzonatate [Tessalon Perles] 100 mg PO Q8HR #15 capsule 02/26/20 Unknown Rx Albuterol Mdi (or & Nicu Only) 2 puff IH Q4HR PRN #1 inhalation 01/28/21 Unknown Rx [ProAir HFA Inhaler] Acetaminophen [Non-Aspirin Extra 500 mg PO Q6HR PRN #30 tablet 04/13/21 Unknown Rx Strength] Albuterol Mdi (or & Nicu Only) 2 puff IH QID PRN #1 gram 04/13/21 Unknown Rx [ProAir HFA Inhaler] Benzonatate [Tessalon Perles] 100 mg PO Q8HR #10 capsule 04/13/21 Unknown Rx DOXYCYCLINE Hyclate [Vibramycin] 100 mg PO Q12HR #10 capsule 04/13/21 Unknown Rx Ipratropium (Nf) [Atrovent] 2 puff IH Q6HR PRN #1 inha 04/13/21 Unknown Rx Metoclopramide [Reglan] 10 mg PO QID PRN #30 tablet 04/13/21 Unknown Rx ED Physical Exam - General Limitations: No Limitations General appearance: alert, in no apparent distress - Head Head exam: Present: atraumatic, normocephalic - Eye Eye exam: Present: normal appearance, EOMI. Absent: nystagmus - ENT ENT exam: Present: normal exam, normal orophraynx, mucous membranes moist, normal external ear exam, other (The patient is edentulous. There is no stridor. There is no pharyngeal erythema, or exudate noted) - Neck Neck exam: Present: normal inspection, full ROM. Absent: tenderness, meningismus - Respiratory Respiratory exam: Present: chest wall tenderness, other (Pulmonary auscultation not performed secondary to lack of disposable stethoscope). Absent: respiratory distress, stridor - Cardiovascular Cardiovascular Exam: Present: other (Regular rate and rhythm appreciated on EKG. Cardiac auscultation not performed secondary to lack of disposable stethoscope) - GI/Abdominal GI/Abdominal exam: Present: soft. Absent: distended, tenderness, guarding, rebound, rigid, pulsatile mass - Rectal Rectal exam: Present: deferred - Extremities Exam Extremities exam: Present: normal inspection, full ROM, other (2+ pulses noted in the bilateral upper and lower extremities. There is no palpable cord. negative Homans sign. Muscular compartments are soft. The pelvis is stable.). Absent: pedal edema, calf tenderness - Back Exam Back exam: Present: normal inspection, full ROM. Absent: tenderness, CVA tenderness (R), CVA tenderness (L), paraspinal tenderness, vertebral tenderness - Neurological Exam Neurological exam: Present: alert, oriented X3, normal gait, other (No facial droop. Tongue midline. Extraocular movements intact bilaterally. Facial sensation intact to light touch in V1, V2, V3 distribution bilaterally. 5 and a 5 strength in 4 extremities. Sensation intact to light touch in 4 extremities.). Absent: motor sensory deficit - Psychiatric Psychiatric exam: Present: normal affect, normal mood. Absent: homicidal ideation, suicidal ideation - Skin Skin exam: Present: warm, dry, intact, normal color. Absent: rash ED Course Vital Signs 04/13/21 07:28 Temperature 98.3 F Pulse Rate 87 Respiratory 16 Rate Blood Pressure 135/107 [Left] O2 Sat by Pulse 100 Oximetry ED Medical Decision Making - Lab Data Result diagrams: 04/13/21 08:39 04/13/21 08:39 Vital Signs 04/13/21 07:28 Temperature 98.3 F Pulse Rate 87 Respiratory 16 Rate Blood Pressure 135/107 [Left] O2 Sat by Pulse 100 Oximetry Lab Results 04/13/21 04/13/21 04/13/21 Range/Units 08:39 08:39 08:39 WBC 8.7 (4.5-11.0) K/mm3 RBC 5.10 H (3.65-5.03) M/mm3 Hgb 15.9 H (11.8-15.2) gm/dl Hct 47.8 H (35.5-45.6) % MCV 94 (84-94) fl MCH 31 (28-32) pg MCHC 33 (32-34) % RDW 13.7 (13.2-15.2) % Plt Count 450 H (140-440) K/mm3 Power % (Auto) Seasonal Driver Sodium 138 (137-145) mmol/L Potassium 4.6 (3.6-5.0) mmol/L Chloride 97.2 L (98-107) mmol/L Carbon Dioxide 27 (22-30) mmol/L Anion Gap 18 mmol/L BUN 18 (9-20) mg/dL Creatinine 0.8 (0.8-1.3) mg/dL Estimated GFR > 60 ml/min BUN/Creatinine Ratio 23 % Glucose 102 H (75-100) mg/dL Calcium 9.0 (8.4-10.2) mg/dL Total Bilirubin 0.40 (0.1-1.2) mg/dL Direct Bilirubin < 0.2 (0-0.2) mg/dL Indirect Bilirubin 0.2 mg/dL AST 16 (5-40) units/L ALT 11 (7-56) units/L Alkaline Phosphatase 76 (35-129) units/L Total Creatine Kinase 33 L (55-170) units/L Troponin T < 0.010 (0.00-0.029) ng/mL Total Protein 7.3 (6.3-8.2) g/dL Albumin 3.2 L (3.9-5) g/dL Albumin/Globulin Ratio 0.8 % Salicylates < 0.3 L (2.8-20.0) mg/dL Acetaminophen (10.0-30.0) ug/mL 04/13/21 Range/Units 08:39 WBC (4.5-11.0) K/mm3 RBC (3.65-5.03) M/mm3 Hgb (11.8-15.2) gm/dl Hct (35.5-45.6) % MCV (84-94) fl MCH (28-32) pg MCHC (32-34) % RDW (13.2-15.2) % Plt Count (140-440) K/mm3 Power % (Auto) Sodium (137-145) mmol/L Potassium (3.6-5.0) mmol/L Chloride (98-107) mmol/L Carbon Dioxide (22-30) mmol/L Anion Gap mmol/L BUN (9-20) mg/dL Creatinine (0.8-1.3) mg/dL Estimated GFR ml/min BUN/Creatinine Ratio % Glucose (75-100) mg/dL Calcium (8.4-10.2) mg/dL Total Bilirubin (0.1-1.2) mg/dL Direct Bilirubin (0-0.2) mg/dL Indirect Bilirubin mg/dL AST (5-40) units/L ALT (7-56) units/L Alkaline Phosphatase (35-129) units/L Total Creatine Kinase (55-170) units/L Troponin T (0.00-0.029) ng/mL Total Protein (6.3-8.2) g/dL Albumin (3.9-5) g/dL Albumin/Globulin Ratio % Salicylates (2.8-20.0) mg/dL Acetaminophen 5.0 L (10.0-30.0) ug/mL - EKG Data -: EKG Interpreted by Sd EKG shows normal: sinus rhythm Rate: normal - EKG Data Interpretation: unchanged when compared t (November 2019) 04/13/21 09:39 The EKG today is interpreted at 08: 2 8 , Sinus rhythm, 83 bpm. Normal axis, normal P wave axis. Premature ventricular contraction, poor R wave progression. Abnormal EKG. Not a STEMI. - Radiology Data Radiology results: pending, report reviewed, image reviewed CHEST 2 VIEWS INDICATION / CLINICAL INFORMATION: cough chest wall pain coppd. COMPARISON: January 28, 2021 FINDINGS: SUPPORT DEVICES: None. HEART / MEDIASTINUM: No significant abnormality. LUNGS / PLEURA: Hyperinflation airways. There is lucency within the lung apices which is slightly more well-defined on prior exam. There is some mild increased scarring in lung apices as well which is increased. IMPRESSION: COPD with chronic interstitial change. Increased interstitial prominence with scarring in lung apices. There is also increased lucency in the lung apices which could represent bullous change, less likely pneumothorax. Signer Name: Samy Garcia MD Signed: 04/13/2021 7:45 AM Workstation Name: [email or web address] - Medical Decision Making Differential diagnosis, including but not limited to: Migraine headache, tension headache, cluster headache, COVID-19, viral syndrome, bronchitis, COPD, costochondritis Assessment and plan: 65-year-old gentleman, with nonspecific constitutional symptoms for a few weeks. He is afebrile with reassuring vital signs and not in any significant respiratory distress. He is not stridulous. He is COVID-19 vaccinated. He is not currently tachycardic, tachypneic or hypoxic, he denies DVT and pulmonary embolism risk factors and is low risk by Wells criteria for pulmonary embolism. His EKG is morphologically unchanged from prior, troponin negative x1 in the context of weeks of symptoms, therefore, myocardial infa rction is excluded, and mild pericarditis are also very unlikely. The patient reports having issues following up with an outpatient primary care physician, which appears to be a major consideration at this time. His x-ray of the chest is reviewed and appreciated, this is likely COPD with bullous disease. On final reassessment he is resting comfortably and in no acute distress. COVID-19 may also be a possibility here, but he is not hypoxic and has no significant infiltrates noted on x-ray of the chest. Even if this patient does have COVID-19, he does not require admission or hospitalization at this time. Albuterol, Atrovent, Tessalon Perles, doxycycline, he will need to follow-up with outpatient primary care and/or pulmonology Critical care attestation.: If time is entered above; I have spent that time in minutes in the direct care of this critically ill patient, excluding procedure time. ED Disposition Clinical Impression: Viral syndrome, Bronchitis Disposition: 01 HOME / SELF CARE / HOMELESS Is pt being admited?: No Does the pt Need Aspirin: No Condition: Good Instructions: Chronic Bronchitis (ED), Chronic Obstructive Pulmonary Disease Additional Instructions: Please take the breathing medication as needed and directed, pain medication, nausea medication/headache medication as needed and directed. Recommend follow- up with a primary care doctor or subscription clerk within the next 7 to 10 days. Recommend outpatient COVID-19 testing. Recommended patient wash hands frequently, thoroughly and often. Symptoms likely coming from bronchitis/COPD exacerbation, Viral syndrome, although the patient may also have COVID-19, in spite of being vaccinated. At this point time, the patient does not require medical admission for COVID-19. We do recommend expedient outpatient testing. This emergency room is not able to provide rapid [id number] COVID-[address] Blair is a local subscription clerk. Dr. Westbrook is a local primary care doctor. Please have your primary care doctor or subscription clerk contact the medical records department to obtain copies of laboratory studies and radiology studies, to follow-up on nonemergent incidental abnormal findings. Please return to the emergency room right away with new pain, worsened pain, migration of pain, projectile vomiting, change in mental status, confusion, inability tolerate liquid feeds, new, worsened or different symptoms not present on the initial emergency room evaluation Referrals: MALCOLM WESTBROOK MD [Staff Physician] - 7-10 days COLLEEN BLAIR MD [Staff Physician] - 7-10 days
--- NOTE | 2021-04-13 08:49 | XRay Report ---
CHEST 2 VIEWS INDICATION / CLINICAL INFORMATION: cough chest wall pain coppd. COMPARISON: January 28, 2021 FINDINGS: SUPPORT DEVICES: None. HEART / MEDIASTINUM: No significant abnormality. LUNGS / PLEURA: Hyperinflation airways. There is lucency within the lung apices which is slightly mor e well-defined on prior exam. There is some mild increased scarring in lung apices as well which is i ncreased. IMPRESSION: COPD with chronic interstitial change. Increased interstitial prominence with scarring in lung apices . There is also increased lucency in the lung apices which could represent bullous change, less likel y pneumothorax. Signer Name: Samy Garcia MD Signed: 04/13/2021 8:45 AM Workstation Name: [email or web address]
[2021-04-13 08:56] LABS: Hemoglobin 15.9 gm/dl (11.8-15.2)
[2021-04-13 08:57] LABS: Hematocrit 47.8 % (35.5-45.6); Mean Corpuscular HGB Conc 33 % (32-34); Mean Corpuscular Volume 94 fl (84-94); Platelet Count 450 K/mm3 (140-440); Red Cell Distribution Width 13.7 % (13.2-15.2)
[2021-04-13 09:20] LABS: Alanine Aminotransferase 11 units/L (7-56); Albumin 3.2 g/dL (3.9-5); BUN/Creatinine Ratio 23; Blood Urea Nitrogen 18 mg/dL (9-20); Hemolysis Index 12
[2021-04-13 09:26] LABS: Bilirubin,Direct < 0.2 mg/dL (0-0.2)
[2021-04-13 09:55] LABS: Total Cells Counted 100
[2021-04-13 09:56] LABS: Eosinophils % (Manual) 0 % (0.0-4.3); Large Platelets Few; Platelet Estimate Consistent w Auto; RBC Morphology Normal
--- NOTE | 2021-04-14 09:58 | Electrocardiograph Report ---
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
== END 2021-04-13 10:59 | disposition home or self-care (01) ==
LOC: ED 07:05
DX: J44.9 Chronic obstructive pulmonary disease, unspecified (principal); B34.9 Viral infection, unspecified; M19.90 Unspecified osteoarthritis, unspecified site; G89.29 Other chronic pain; F12.90 Cannabis use, unspecified, uncomplicated; F32.9 Major depressive disorder, single episode, unspecified; Z88.0 Allergy status to penicillin; Z79.899 Other long term (current) drug therapy
CPT/HCPCS: 36415; 71046; 80048; 80076; 80320; 82550; 84484; 85007; 85025; 93005; 94640; 94644; 99284; G0480

== ENCOUNTER 2021-08-24 14:02 | Emergency (ER) | payer MEDICARE ==
--- NOTE | 2021-08-24 19:52 | Emergency Department Report ---
ED Rash HPI - HPI Chief Complaint: Skin Rash Stated Complaint: RASH Duration: 4 Days Location: Upper Extremities Rash Symptoms: Yes Itching, No Facial Swelling, No Tongue/Oral Swelling, No Breathing Difficulties, No Choking Sensation, No Wheezing/Dyspnea, No Peeling, No Blistering, No Fever, No Lightheaded, No Malaise, No Myalgias Severity: mild Other History: 66-year-old male presents to the ED with rash noted to bilateral arms x 4 days . Patient states using hydrocortisone cream with mild relief. Patient states increased intense itching. Patient states that he was over to his girlfriend house and came in contact with some leaves. He is alert oriented x3. No acute distress noted. No ill appearance noted. Patient denies any prior URI. ED Review of Systems ROS: Stated complaint: RASH Other details as noted in HPI Constitutional: denies: chills, fever Eyes: denies: eye pain, eye discharge, vision change ENT: denies: ear pain, throat pain Respiratory: denies: cough, shortness of breath, wheezing Cardiovascular: denies: chest pain, palpitations Endocrine: no symptoms reported Gastrointestinal: denies: abdominal pain, nausea, diarrhea Genitourinary: denies: urgency, dysuria Musculoskeletal: denies: back pain, joint swelling, arthralgia Skin: rash. denies: lesions Neurological: denies: headache, weakness, paresthesias Psychiatric: denies: anxiety, depression Hematological/Lymphatic: denies: easy bleeding, easy bruising ED Past Medical Hx - Past Medical History Previous Medical History?: Yes Hx Hypertension: No Hx Heart Attack/AMI: No Hx Congestive Heart Failure: No Hx Diabetes: No Hx Deep Vein Thrombosis: No Hx Pulmonary Embolism: No Hx Arthritis: Yes Hx Psychiatric Treatment: Yes (DEPRESSION, cocaine abuse) Hx Asthma: No Hx COPD: Yes Hx Tuberculosis: No Additional medical history: pneumonia - Surgical History Past Surgical History?: Yes Hx Coronary Stent: No Hx Pacemaker: No Hx Internal Defibrillator: No Additional Surgical History: bladder - as a child. urethra sx - Social History Smoking Status: Former Smoker Substance Use Type: None - Medications Home Medications: Home Medications Medication Instructions Recorded Confirmed Last Taken Type Benzonatate [Tessalon Perles] 100 mg PO Q8HR #15 capsule 02/26/20 Unknown Rx Albuterol Mdi (or & Nicu Only) 2 puff IH Q4HR PRN #1 inhalation 01/28/21 Unknown Rx [ProAir HFA Inhaler] Acetaminophen [Non-Aspirin Extra 500 mg PO Q6HR PRN #30 tablet 04/13/21 Unknown Rx Strength] Albuterol Mdi (or & Nicu Only) 2 puff IH QID PRN #1 gram 04/13/21 Unknown Rx [ProAir HFA Inhaler] Benzonatate [Tessalon Perles] 100 mg PO Q8HR #10 capsule 04/13/21 Unknown Rx DOXYCYCLINE Hyclate [Vibramycin] 100 mg PO Q12HR #10 capsule 04/13/21 Unknown Rx Ipratropium (Nf) [Atrovent] 2 puff IH Q6HR PRN #1 inha 04/13/21 Unknown Rx Metoclopramide [Reglan] 10 mg PO QID PRN #30 tablet 04/13/21 Unknown Rx predniSONE [Deltasone] 20 mg PO BID 5 Days #10 tab 08/24/21 Unknown Rx Rash Exam - Exam General: Vital signs noted. No distress. Alert and acting appropriately. HEENT: No Periorbital Edema, No Conjuctival Injection, No Chemosis, No Perioral Edema, No Tongue Edema, No Uvular Edema, No Compromised Airway, No Drooling Lungs: Yes Good Air Exchange (Normal Breath Sounds), No Wheezes, No Ronchi, No Stridor, No Cough, No Labored Respirations, No Retractions, No Use of Accessory Muscles, No Other Abnormal Lung Sounds Heart: Yes Regular, No Murmur Skin: Yes Urticarial Rash, No Maculopapular Rash, No Morbilliform rash, No Bulla(e), No Excoriations, No Weeping, No Tenderness, No Erythema, No Edema, No Encrustations, No Other Other: Positive: Abdomen Normal, Neurologic Normal, Musculoskeletal Normal ED Course Vital Signs 08/24/21 15:52 Temperature 97.8 F Pulse Rate 56 L Respiratory 16 Rate Blood Pressure 118/74 [Left] O2 Sat by Pulse 96 Oximetry ED Medical Decision Making - Medical Decision Making 66-year-old male presents to the ED with rash noted to bilateral arms x 4 days . Patient states using hydrocortisone cream with mild relief. Patient states increased intense itching. Patient states that he was over to his girlfriend house and came in contact with some leaves. He is alert oriented x3. No acute distress noted. No ill appearance noted. Patient denies any prior URI. Physical examination show erythema rash. Rechecked the patient is resting quietly quietly and comfortable and feeling better. I discussed the results of diagnostic study, my clinical impression and the plan for further treatment with the patient. Patient agrees with plan and discharge at this present time. All question addressed. I have given the patient instruction regarding a diagnosis ,expectation ,follow- up and return precaution. I explained to the patient that emergent condition may arise and to return to the ED for new worsen and any new persisting condition. I have explained the importance of following up with the primary care physician or referral physician listed below has instructed. The patient verbalized understanding of discharge instruction. Critical care attestation.: If time is entered above; I have spent that time in minutes in the direct care of this critically ill patient, excluding procedure time. ED Disposition Clinical Impression: Urticarial rash Disposition: 01 HOME / SELF CARE / HOMELESS Is pt being admited?: No Does the pt Need Aspirin: No Condition: Stable Instructions: Rash, Adult, [id number] Additional Instructions: Take medication as prescribed Return to the ED for any worsening symptoms Prescriptions: predniSONE [Deltasone] 20 mg PO BID 5 Days #10 tab Referrals: PRIMARY CARE, [Primary Care Provider] - 3-5 Days [facility] [Provider Group] - 3-5 Days Forms: Work/School Release Form(ED) Time of Disposition: 19:52
[2021-08-24 20:08] VITALS: BP 122/76
== END 2021-08-24 20:09 | disposition home or self-care (01) ==
LOC: ED 14:02
DX: L50.9 Urticaria, unspecified (principal); F32.A Depression, unspecified; J44.1 Chronic obstructive pulmonary disease with (acute) exacerbation; Z98.890 Other specified postprocedural states; Z87.891 Personal history of nicotine dependence; Z79.899 Other long term (current) drug therapy
CPT/HCPCS: 99282